=== PATIENT | female | born 1955 | race Caucasian/White ===

== ENCOUNTER 2017-12-13 02:49 | Inpatient (IN) ==
--- NOTE | 2017-12-13 03:03 | ED ---
HPI General Chief complaint: Nausea/Vomiting/Diarrhea Stated complaint: NVD/Evac Time Seen by Provider: 12/13/17 03:00 Source: patient and EMS Mode of arrival: EMS Limitations: no limitations History of Present Illness HPI narrative: The patient is a 62 year old female who presents to the [facility] emergency department with a history of reportedly not feeling well for the last 5 days. She reports that she had generalized weakness, lightheaded sensation and dizziness. She reports that today she began to have vomiting and diarrhea. She reports that she has had 3 episodes of vomiting today, one episode of diarrhea. She is unsure whether she has had any blood in her stool as she has not looked at it. The patient reports having abdominal cramping in the center of her abdomen around her umbilicus today. She denies any sick contacts, recent antibiotic use, or unusual food intake. She reports that she did have C. difficile colitis 2 years ago. The patient's only other recent medical history is complicated by discontinuing her Paxil 1 week ago. The patient reports that she lost her job in October and decided to taper herself off of the Paxil issue new that she would not be able to afford it. She reports that she has been on Paxil 30 mg for the last 20 years. She reports that over the last months she decreased the dose by half and then 1 week ago discontinued it. She denies having any dysuria, urinary frequency, or urinary urgency. The patient was brought in by ambulance services and was given normal saline of 500 mL bolus x1, Zofran 4 mg IV. The patient's blood sugar was noted prior to arrival to be 222. On review of systems otherwise, the patient denies having any known fevers, cough, congestion, neck pain, chest pain, shortness of breath , one-sided weakness, facial droop, difficulty with word finding ability, vision changes, or vertigo. Related Data Home Medications Medication Instructions Recorded Confirmed paroxetine HCl [Paxil] 15 mg PO DAILY 12/13/17 12/13/17 Allergies Allergy/AdvReac Type Severity Reaction Status Date / Time Penicillins Allergy Severe Anaphylaxis Verified 12/13/17 03:02 Review of Systems ROS: all other systems reviewed are negative (Except for that which was mentioned in the HPI.) PMFSH History History Provided By: Patient Medical History Medical History Depression (Acute) Gallbladder disease (Acute) History of Clostridium difficile infection (Acute) Surgical History Surgical History H/O knee surgery (Acute) S/P cholecystectomy (Acute) Status post surgical removal of malignant neoplasm of skin (Acute) Family History Family History Father Diabetes Mother Diabetes Other CAD (coronary artery disease) Family history of breast cancer Family history of hypertension Social History Social History Substance History: Past History Second Hand Smoke Exposure: No Smoking Status: Current every day smoker Tobacco Type: E-Cigarettes How Often Do You Have a Drink Containing Alcohol: Never Recent Out of Country Travel within the Last 8 Weeks: No Exam Const General: cooperative, no acute distress and well developed Nutritional Appearance: well nourished Orientation: alert, awake and oriented x3 HENMT Head: normocephalic and atraumatic Nose: no nasal discharge and no epistaxis Mouth: moist mucous membranes Throat: posterior oropharynx normal and uvula midline Eyes Sclera: normal sclerae Pupils: PERRL Neck Neck: no meningeal signs, trachea midline and no JVD Resp Effort & Inspection: no use of accessory muscles Auscultation: clear to auscultation bilaterally Cardio Rate: regular rate Rhythm: regular rhythm Heart Sounds: no murmurs GI Inspection: non-distended Palpation: soft, no hepatosplenomegaly, no guarding, not rigid and tender periumbilically (Tenderness to palpation along the periumbilical area.); not in the LLQ, not in the RLQ, not in the LUQ, not in the RUQ, not suprapubicly and with no rebound tenderness Back/Spine/Pelvis Back: no CVA tenderness Skin General: dry skin (warm) Neuro General: alert, awake and oriented x3 Cranial Nerves: other Speech: speech normal Motor: no movement abnormalities noted Extrem General: normal to inspection (No calf tenderness on palpation. 2+ pulses in all 4 extremities.), no clubbing, no cyanosis and no edema Psych Mood: congruent mood Affect: normal affect Judgment: judgment good Course Reevaluation(s) Reevaluation #1: The patient on reexamination after pain medication reported feeling improved. She was sleeping lying on her side. Consultations Consultation #1: The patient's case including history, pertinent physical examination findings, and laboratory studies were discussed with Dr. Cardoza. It was agreed that the patient would be admitted to the hospitalist service. Initial Documented Vital Signs Temperature 97.8 F 12/13/17 03:03 Pulse Rate 89 12/13/17 03:03 Respiratory Rate 19 12/13/17 03:03 Blood Pressure 128/60 12/13/17 03:03 Pulse Oximetry 96 12/13/17 03:03 Last Documented Vital Signs Temperature 97.9 F 12/13/17 16:00 Pulse Rate 93 H 12/13/17 16:00 Respiratory Rate 18 12/13/17 16:00 Blood Pressure 142/70 H 12/13/17 16:00 Pulse Oximetry 98 12/13/17 16:00 Medical Decision Making MDM Narrative Medical decision making narrative: During the course of the patient's emergency department visit, the patient's history, examination, and differential diagnosis were reviewed with the patient. The patient was placed on a product safety technician with oximetry and frequent blood pressure monitoring. The patient had IV access obtained and blood work sent for analysis. A diagnostic evaluation was started regarding the patient's generalized weakness, nausea, vomiting, and diarrhea. Prior to arrival the patient was given normal saline a 500 mL bolus, Zofran 4 mg IV. Stool studies were ordered. The patient was initially provided in the emergency department normal saline at 125 mL/h. The patient's diagnostic evaluation is remarkable for a white count of 11.2, platelets 331, neutrophil predominance of 86.6, hemoglobin 9, chemistry is remarkable for a lipase that is within normal limits, glucose 204, troponin I less than 0.02, creatinine is 1.[address] a [address] scan of the abdomen and pelvis done that shows evidence of a small bowel obstruction with dilated loops of small bowel secondary to a possible mass at the ileocecal valve. The patient also has a 1.5 cm indeterminate cortical based lesion involving the left kidney. The patient's results were discussed with the patient, including the plan of care. I explained that further testing and/ or monitoring is indicated based on the patient's history, examination, and/ or laboratory findings. Therefore, I recommended admission for additional evaluation. The patient expressed understanding and was agreeable with this plan. The patient was admitted to the hospital in guarded condition and sent to a bed under the care of the [facility] service. Medical Screen Exam Complete: Yes Emergency Medical Condition: Yes Differential Diagnosis Differential Diagnosis: Colitis, versus diverticulitis, versus medication withdrawal syndrome, versus appendicitis Medical Records Medical records reviewed: Yes I reviewed the patient's medical records. Lab Data Lab results reviewed: Yes I reviewed the patient's lab results. Result diagrams: 12/13/17 03:30 12/13/17 03:30 Lab Results 12/13/17 12/13/17 12/13/17 Range/Units 03:30 03:30 03:30 WBC 11.2 H (4.0-11.0) th/mm3 RBC 4.16 (4.00-5.30) mil/mm3 Hgb 9.0 L (11.6-15.3) gm/dL Hct 29.7 L (35.0-46.0) % MCV 71.4 L (80.0-100.0) fL MCH 21.6 L (27.0-34.0) pg MCHC 30.3 L (32.0-36.0) % RDW 16.7 (11.6-17.2) % Plt Count 331 (150-450) th/mm3 MPV 7.5 (7.0-11.0) fL Neut % (Auto) 86.6 H (16.0-70.0) % Lymph % (Auto) 6.8 L (9.0-44.0) % Carson % (Auto) 5.0 (0.0-8.0) % Eos % (Auto) 1.0 (0.0-4.0) % Baso % (Auto) 0.6 (0.0-2.0) % Neut # (Auto) 9.7 H (1.8-7.7) th/mm3 Lymph # (Auto) 0.8 L (1.0-4.8) th/mm3 Carson # (Auto) 0.6 (0.0-0.9) th/mm3 Eos # (Auto) 0.1 (0.0-0.4) th/mm3 Baso # (Auto) 0.1 (0.0-0.2) th/mm3 WBC Differential . Differential Comment Auto diff final ESR 59 H (0-30) mm/hr Sodium 140 (136-145) meq/L Potassium 3.9 (3.5-5.1) meq/L Chloride 107 (98-107) meq/L Carbon Dioxide 24.6 (21.0-32.0) meq/L Anion Gap 8 (5-15) meq/L BUN 15 (7-18) mg/dL Creatinine 1.24 H (0.50-1.00) mg/dL Estimated GFR 44 L (>89) mL/min Random Glucose 204 H (74-106) mg/dL Hemoglobin A1c (4.3-6.0) % Calcium 9.5 (8.5-10.1) mg/dL Total Bilirubin 0.4 (0.2-1.0) mg/dL AST 16 (15-37) U/L ALT 14 (10-53) U/L Alkaline Phosphatase 69 (45-117) U/L Total Creatine Kinase 42 (26-192) U/L Troponin I Less than 0.02 L (0.02-0.05) ng/mL B-Natriuretic Peptide (0-100) pg/mL Total Protein 7.2 (6.4-8.2) g/dL Albumin 3.4 (3.4-5.0) g/dL Triglycerides (42-150) mg/dL Cholesterol (120-200) mg/dL LDL Cholesterol, Calc (0-99) mg/dL HDL Cholesterol (40.0-60.0) mg/dL Cholesterol/HDL Ratio Ratio Lipase 86 (73-393) U/L Vitamin B12 (193-986) pg/mL TSH 2.650 (0.358-3.740) uIU/mL Urine Color (Yellw/Straw) Urine Clarity (Clear) Urine pH (5.0-8.5) Ur Specific Divide (1.002-1.035) Urine Protein (Neg-Trace) mg/dL Urine Glucose (UA) (Negative) mg/dL Urine Ketones (Negative) mg/dL Urine Occult Blood (Negative) Urine Nitrate (Negative) Urine Bilirubin (Negative) Urine Urobilinogen (Less than 2) mg/dL Ur Leukocyte Esterase (Negative) Urine RBC (0-3) /hpf Urine WBC (0-5) /hpf Ur Squamous Epith Cells (0-5) /hpf Urine Bacteria (None) /hpf Urine Mucus (Occasional) /lpf Micro UA Comment Urine Culture Comments 12/13/17 12/13/17 12/13/17 Range/Units 03:30 03:30 03:30 WBC (4.0-11.0) th/mm3 RBC (4.00-5.30) mil/mm3 Hgb (11.6-15.3) gm/dL Hct (35.0-46.0) % MCV (80.0-100.0) fL MCH (27.0-34.0) pg MCHC (32.0-36.0) % RDW (11.6-17.2) % Plt Count (150-450) th/mm3 MPV (7.0-11.0) fL Neut % (Auto) (16.0-70.0) % Lymph % (Auto) (9.0-44.0) % Carson % (Auto) (0.0-8.0) % Eos % (Auto) (0.0-4.0) % Baso % (Auto) (0.0-2.0) % Neut # (Auto) (1.8-7.7) th/mm3 Lymph # (Auto) (1.0-4.8) th/mm3 Carson # (Auto) (0.0-0.9) th/mm3 Eos # (Auto) (0.0-0.4) th/mm3 Baso # (Auto) (0.0-0.2) th/mm3 WBC Differential Differential Comment ESR (0-30) mm/hr Sodium (136-145) meq/L Potassium (3.5-5.1) meq/L Chloride (98-107) meq/L Carbon Dioxide (21.0-32.0) meq/L Anion Gap (5-15) meq/L BUN (7-18) mg/dL Creatinine (0.50-1.00) mg/dL Estimated GFR (>89) mL/min Random Glucose (74-106) mg/dL Hemoglobin A1c 5.9 (4.3-6.0) % Calcium (8.5-10.1) mg/dL Total Bilirubin (0.2-1.0) mg/dL AST (15-37) U/L ALT (10-53) U/L Alkaline Phosphatase (45-117) U/L Total Creatine Kinase (26-192) U/L Troponin I (0.02-0.05) ng/mL B-Natriuretic Peptide 19 (0-100) pg/mL Total Protein (6.4-8.2) g/dL Albumin (3.4-5.0) g/dL Triglycerides (42-150) mg/dL Cholesterol (120-200) mg/dL LDL Cholesterol, Calc (0-99) mg/dL HDL Cholesterol (40.0-60.0) mg/dL Cholesterol/HDL Ratio Ratio Lipase (73-393) U/L Vitamin B12 (193-986) pg/mL TSH 2.620 (0.358-3.740) uIU/mL Urine Color (Yellw/Straw) Urine Clarity (Clear) Urine pH (5.0-8.5) Ur Specific Divide (1.002-1.035) Urine Protein (Neg-Trace) mg/dL Urine Glucose (UA) (Negative) mg/dL Urine Ketones (Negative) mg/dL Urine Occult Blood (Negative) Urine Nitrate (Negative) Urine Bilirubin (Negative) Urine Urobilinogen (Less than 2) mg/dL Ur Leukocyte Esterase (Negative) Urine RBC (0-3) /hpf Urine WBC (0-5) /hpf Ur Squamous Epith Cells (0-5) /hpf Urine Bacteria (None) /hpf Urine Mucus (Occasional) /lpf Micro UA Comment Urine Culture Comments 12/13/17 12/13/17 Range/Units 03:30 13:08 WBC (4.0-11.0) th/mm3 RBC (4.00-5.30) mil/mm3 Hgb (11.6-15.3) gm/dL Hct (35.0-46.0) % MCV (80.0-100.0) fL MCH (27.0-34.0) pg MCHC (32.0-36.0) % RDW (11.6-17.2) % Plt Count (150-450) th/mm3 MPV (7.0-11.0) fL Neut % (Auto) (16.0-70.0) % Lymph % (Auto) (9.0-44.0) % Carson % (Auto) (0.0-8.0) % Eos % (Auto) (0.0-4.0) % Baso % (Auto) (0.0-2.0) % Neut # (Auto) (1.8-7.7) th/mm3 Lymph # (Auto) (1.0-4.8) th/mm3 Carson # (Auto) (0.0-0.9) th/mm3 Eos # (Auto) (0.0-0.4) th/mm3 Baso # (Auto) (0.0-0.2) th/mm3 WBC Differential Differential Comment ESR (0-30) mm/hr Sodium (136-145) meq/L Potassium (3.5-5.1) meq/L Chloride (98-107) meq/L Carbon Dioxide (21.0-32.0) meq/L Anion Gap (5-15) meq/L BUN (7-18) mg/dL Creatinine (0.50-1.00) mg/dL Estimated GFR (>89) mL/min Random Glucose (74-106) mg/dL Hemoglobin A1c (4.3-6.0) % Calcium (8.5-10.1) mg/dL Total Bilirubin (0.2-1.0) mg/dL AST (15-37) U/L ALT (10-53) U/L Alkaline Phosphatase (45-117) U/L Total Creatine Kinase (26-192) U/L Troponin I (0.02-0.05) ng/mL B-Natriuretic Peptide (0-100) pg/mL Total Protein (6.4-8.2) g/dL Albumin (3.4-5.0) g/dL Triglycerides 154 H (42-150) mg/dL Cholesterol 153 (120-200) mg/dL LDL Cholesterol, Calc 85 (0-99) mg/dL HDL Cholesterol 37.0 L (40.0-60.0) mg/dL Cholesterol/HDL Ratio 4.13 Ratio Lipase (73-393) U/L Vitamin B12 263 (193-986) pg/mL TSH (0.358-3.740) uIU/mL Urine Color Yellow (Yellw/Straw) Urine Clarity Hazy H (Clear) Urine pH 5.0 (5.0-8.5) Ur Specific Divide Greater than 1.060 H (1.002-1.035) Urine Protein 30 H (Neg-Trace) mg/dL Urine Glucose (UA) Negative (Negative) mg/dL Urine Ketones Negative (Negative) mg/dL Urine Occult Blood Negative (Negative) Urine Nitrate Negative (Negative) Urine Bilirubin Negative (Negative) Urine Urobilinogen 2.0 H (Less than 2) mg/dL Ur Leukocyte Esterase Moderate H (Negative) Urine RBC 9 H (0-3) /hpf Urine WBC 6 H (0-5) /hpf Ur Squamous Epith Cells 13 (0-5) /hpf Urine Bacteria Moderate H (None) /hpf Urine Mucus Moderate H (Occasional) /lpf Micro UA Comment Culture indicated Urine Culture Comments Culture indicated Imaging Data Radiologist's impression: Chest X-Ray 12/13/17 03:52 CONCLUSION: 1.5 cm nodular density associated with the right third costochondral junction. This could relate to calcification at the costochondral junction. I cannot exclude a pulmonary nodule. A CT of the thorax is suggested as an outpatient for follow-up. No acute intrathoracic abnormality otherwise. Abdomen/Pelvis CT 12/13/17 03:54 CONCLUSION: 1. Small bowel obstruction. Obstruction is felt to be secondary to possible mass at the ileocecal valve. The appendix is unremarkable. 2. 1.5 cm indeterminate cortical based lesion involving the left kidney. I cannot exclude a solid mass. Consideration could be made to ultrasound to further assess. 3. Prior cholecystectomy. Discharge Plan Discharge Disposition Patient Disposition: 30 Still Patient Discharge Details Diagnosis: Small bowel obstruction Physicians Team ED Provider: Tegan Patel Primary Care Provider: UNKNOWN, Attending Provider: Abdelrahman Gonsalves Other Providers: Geoffrey Nolan ; Forrest Quinonez Discharge Interventions Interventions: ED Discharge Assessment Last Done: 12/13/17 12:25 Vital Signs Last Done: 12/13/17 12:25 Status ED Status: Left Department Discharge Information Discharge Date/Time: 12/13/17 12:30
[2017-12-13] MEDS ORDERED: Sod Chloride 0.9% Inj 1,000 ML IV.CONT SCH (04:00)
--- NOTE | 2017-12-13 04:14 | XR ---
EXAM DATE: 12/13/2017 4:09 AM EDT AGE/SEX: 62 years / Female INDICATIONS: Short of breath, nausea, vomiting. CLINICAL DATA: This is the patient's initial encounter. Patient reports that signs and symptoms have been present for 1 day and indicates a pain score of 0/10. MEDICAL/SURGICAL HISTORY: None. None. COMPARISON: No prior exams available for comparison. FINDINGS: A single AP view of the chest demonstrates a 1.5 cm nodular like density projecting over the costocho ndral junction of the right third rib. Remaining lungs are clear. No infiltrates or effusions. Heart is normal in size. Bony structures are unremarkable. CONCLUSION: 1.5 cm nodular density associated with the right third costochondral junction. This could relate to c alcification at the costochondral junction. I cannot exclude a pulmonary nodule. A CT of the thorax i s suggested as an outpatient for follow-up. No acute intrathoracic abnormality otherwise. Electronically signed by: Gonzales Miller MD 12/13/2017 4:12 AM EDT
[2017-12-13 04:23] LABS: Baso # (Auto) 0.1 th/mm3 (0.0-0.2); Baso % (Auto) 0.6 % (0.0-2.0); Eos # (Auto) 0.1 th/mm3 (0.0-0.4); Hematocrit 29.7 % (35.0-46.0); Lymph # (Auto) 0.8 th/mm3 (1.0-4.8); Lymph % (Auto) 6.8 % (9.0-44.0); Mean Corpuscular Hemoglobin 21.6 pg (27.0-34.0); Mean Corpuscular Volume 71.4 fL (80.0-100.0); Mean Platelet Volume 7.5 fL (7.0-11.0); Mono # (Auto) 0.6 th/mm3 (0.0-0.9); Neut # (Auto) 9.7 th/mm3 (1.8-7.7); Neut % (Auto) 86.6 % (16.0-70.0); Platelet Count 331 th/mm3 (150-450); Red Blood Count 4.16 mil/mm3 (4.00-5.30); Red Cell Distribution Width 16.7 % (11.6-17.2); White Blood Count 11.2 th/mm3 (4.0-11.0)
[2017-12-13 04:26] LABS: Mean Corpuscular HGB Conc 30.3 % (32.0-36.0)
[2017-12-13 04:38] LABS: Alanine Aminotransferase 14 U/L (10-53); Albumin 3.4 g/dL (3.4-5.0); Anion Gap 8 meq/L (5-15); Aspartate Aminotransferase 16 U/L (15-37); Blood Urea Nitrogen 15 mg/dL (7-18); Calcium 9.5 mg/dL (8.5-10.1); Carbon Dioxide 24.6 meq/L (21.0-32.0); Chloride 107 meq/L (98-107); Glomerular Filtration Rate 44 mL/min (>89); Glucose,Random 204 mg/dL (74-106); Lipase 86 U/L (73-393); Potassium 3.9 meq/L (3.5-5.1); Sodium 140 meq/L (136-145)
[2017-12-13 04:47] LABS: Alkaline Phosphatase 69 U/L (45-117); Total Protein 7.2 g/dL (6.4-8.2)
[2017-12-13 04:48] LABS: Creatine Kinase 42 U/L (26-192)
[2017-12-13] MEDS ORDERED: Sodium Chlor 0.9% Inj 500 ML IV.SIG ONE (04:56)
--- NOTE | 2017-12-13 05:38 | CT ---
EXAM DATE: 12/13/2017 5:19 AM EDT AGE/SEX: 62 years / Female INDICATIONS: Umbilical pain with nausea and vomiting. CLINICAL DATA: This is the patient's initial encounter. Patient reports that signs and symptoms have been present for 1 day and indicates a pain score of 7/10. MEDICAL/SURGICAL HISTORY: None. Cholecystectomy. ORAL CONTRAST: No oral contrast ingested. RADIATION DOSE: 16.72 CTDI (mGy) COMPARISON: No prior exams available for comparison. TECHNIQUE: Multiple contiguous axial images were obtained through the abdomen and pelvis following b olus infusion of 95 ml Omnipaque 350 (iohexol) nonionic water-soluble contrast as a single exam dos e. No oral contrast ingested. Using automated exposure control and adjustment of the mA and/or kV ac cording to patient size, radiation dose was kept as low as reasonably achievable to obtain optimal di agnostic quality images. DICOM format image data is available electronically for review and comparis on. FINDINGS: Lower Lungs: Small hiatal hernia. The visualized lower lungs are clear. Liver: The liver has a homogeneous density. 1.5 cm cyst involving the central portions of the liver. There is no dilation of the biliary tree. Prior cholecystectomy. Spleen: Homogeneous density without enlargement. Pancreas: Unremarkable without mass or calcification. Kidneys: Normal in size and shape. There is a 1.5 cm cortical based lesion involving the lateral mid pole the left kidney. Hounsfield units are 28.. Adrenal Glands: Unremarkable. Aorta: The aorta and proximal iliac vessels are grossly unremarkable without aneurysmal dilation. Bowel/Mesentery: Dilatation of the small bowel throughout its entirety is noted. It is fluid-filled. No inflammatory change. There is an abnormal appearance to the cecum at the ileocecal valve. This is concerning for a mass. The appendix is normal by CT criteria. No free air or free fluid. Abdominal Wall: Intact. Retroperitoneum: No evidence of adenopathy in the retrocrural, para-aortic, or deep pelvic regions. Bladder: Contours are smooth. Reproductive Organs: No abnormal masses or calcifications seen. Inguinal: The inguinal region is unremarkable without evidence of adenopathy. Bony Structures: Unremarkable. CONCLUSION: 1. Small bowel obstruction. Obstruction is felt to be secondary to possible mass at the ileocecal va lve. The appendix is unremarkable. 2. 1.5 cm indeterminate cortical based lesion involving the left kidney. I cannot exclude a solid ma ss. Consideration could be made to ultrasound to further assess. 3. Prior cholecystectomy. Electronically signed by: Gonzales Miller MD 12/13/2017 5:37 AM EDT
[2017-12-13] MEDS ORDERED: Morphine Inj 4 MG/ML Vial IV.PUSH PRN (06:10)
[2017-12-13] MEDS: Sod Chloride 0.9% Inj 1,000 ML IV.CONT SCH ×3 (07:32→23:46)
--- NOTE | 2017-12-13 08:42 | P.HP ---
History of Present Illness Primary Care Physician: UNKNOWN Chief Complaint: nausea , vomit and diarrhea. History of Present Illness: This is a pleasant 62 y/o Female who came to ER with complaint of nausea, vomit and Diarrhea, generalized weakness, lightheaded sensation and dizziness. had C. difficile colitis 2 years ago. has Depression, Tobacco dependence, was indicated for admission by ER physician , observation The patient is been having symptomatology for the last two years she went to her PCP during the last two years with pain on the Right lower quadrant. Inpatient Certification: I certify that the inpatient services were ordered in accordance with Medicare regulations governing the order. This includes certification that hospital inpatient services are reasonable and necessary and in the case of services not specified as inpatient-only under 42 CFR 419.22(n), that they are appropriately provided as inpatient services in accordance to with the 2-midnight benchmark under 43 CFR 412.3(e) Estimated Total Length of Stay (Days): 2 Plans for Post Hospital Care: Not yet determined Review of Systems All other systems reviewed negative except as stated in [facility]PI PMFSH - History History Provided By: Patient - Medical History Medical History: Medical History (Last Reviewed 12/13/17 @ 03:57 by Tegan Patel MD) Depression Gallbladder disease History of Clostridium difficile infection - Surgical History Surgical History: Surgical History (Last Updated 12/13/17 @ 03:58 by Tegan Patel MD) H/O knee surgery S/P cholecystectomy Status post surgical removal of malignant neoplasm of skin - Family History Family History: Family History (Last Updated 12/13/17 @ 09:26 by Abdelrahman Gonsalves MD) Father Diabetes Mother Diabetes Other CAD (coronary artery disease) Family history of breast cancer Family history of hypertension - Tobacco History Second Hand Smoke Exposure: No Tobacco Use In Past 30 Days: Yes Smoking Status: Current every day smoker Tobacco Type: E-Cigarettes - Alcohol History How Often Do You Have a Drink Containing Alcohol: Never - Substance Use History Substance History: Past History - Travel History Recent Travel Out of the Country Within the Last 8 Weeks: No - Immunization History Tetanus Immunization: Unsure Medications and Allergies Active Medications: Active Medications Sodium Chloride (Ns Inj) 1,000 mls @ 125 mls/hr IV.CONT .Q8H CAT Stop: 12/13/17 11:59 Last Infusion: 12/13/17 07:10 Dose: 0 mls/hr Sodium Chloride (Ns Inj) 1,000 mls @ 125 mls/hr IV.CONT .Q8H [facility] Last Admin: 12/13/17 07:32 Dose: 125 mls/hr Morphine Sulfate (Morphine Inj) 2 mg IV.PUSH Q4H PRN PRN Reason: pain 6-10 Ondansetron HCl (Zofran Inj) 4 mg IV.PUSH Q6H PRN PRN Reason: Nausea And Vomiting Sodium Chloride (Ns Flush) 2 ml IV.FLUSH PRN PRN PRN Reason: FLUSH AFTER USING IV ACCESS Allergies Allergy/AdvReac Type Severity Reaction Status Date / Time Penicillins Allergy Severe Anaphylaxis Verified 12/13/17 03:02 Home Medications Medication Instructions Recorded Confirmed Type paroxetine HCl [Paxil] 15 mg PO DAILY 12/13/17 12/13/17 History Exam Vital signs: Vital Signs 12/13/17 03:03 12/13/17 03:14 12/13/17 06:08 Temperature 97.8 F Pulse Rate 89 90 78 Respiratory Rate 19 16 18 Blood Pressure 128/60 128/60 133/64 Pulse Oximetry 96 95 12/13/17 07:00 12/13/17 07:14 Temperature 97.8 F Pulse Rate 83 Respiratory Rate 18 Blood Pressure 141/77 H Pulse Oximetry 99 100 Intake & Output 12/12/17 12/13/17 12/13/17 18:59 06:59 18:59 Intake Total 750 / 750 Balance 750 / 750 Weight 95.254 kg Intake: IV 750 / 750 NS Inj 1,000 ML @ 125 mls/hr IV 250 / 250 .CONT .Q8H [facility] Rx#:[id number] NS Inj 500 ML @ Wide Open IV. 500 / 500 SIG BOLUS ONE Rx#:[id number] Narrative: GENERAL: This is a well-nourished, well-developed patient, in no apparent distress. CARDIOVASCULAR: Regular rate and rhythm without murmurs, gallops, or rubs. RESPIRATORY: Clear to auscultation. Breath sounds equal bilaterally. No wheezes , rales, or rhonchi. GASTROINTESTINAL: Soft, mild tenderness on right lower quadrant. MUSCULOSKELETAL: Extremities without clubbing, cyanosis, or edema. NEURO: Alert & Oriented x4 to person, place, time, situation. Moves all ext x4 Results - Labs CBC & Chem 7: 12/13/17 03:30 12/13/17 03:30 Labs: Laboratory Results - last 24 hr 12/13/17 12/13/17 12/13/17 03:30 03:30 03:30 WBC 11.2 H RBC 4.16 Hgb 9.0 L Hct 29.7 L MCV 71.4 L MCH 21.6 L MCHC 30.3 L RDW 16.7 Plt Count 331 MPV 7.5 Neut % (Auto) 86.6 H Lymph % (Auto) 6.8 L [place] % (Auto) 5.0 Eos % (Auto) 1.0 Baso % (Auto) 0.6 Neut # (Auto) 9.7 H Lymph # (Auto) 0.8 L [place] # (Auto) 0.6 Eos # (Auto) 0.1 Baso # (Auto) 0.1 WBC Differential . Differential Comment Auto diff final ESR 59 H Sodium 140 Potassium 3.9 Chloride 107 Carbon Dioxide 24.6 Anion Gap 8 BUN 15 Creatinine 1.24 H Estimated GFR 44 L Random Glucose 204 H Calcium 9.5 Total Bilirubin 0.4 AST 16 ALT 14 Alkaline Phosphatase 69 Total Creatine Kinase 42 Troponin I Less than 0.02 L B-Natriuretic Peptide Total Protein 7.2 Albumin 3.4 Lipase 86 TSH 2.650 12/13/17 03:30 WBC RBC Hgb Hct MCV MCH MCHC RDW Plt Count MPV Neut % (Auto) Lymph % (Auto) [place] % (Auto) Eos % (Auto) Baso % (Auto) Neut # (Auto) Lymph # (Auto) [place] # (Auto) Eos # (Auto) Baso # (Auto) WBC Differential Differential Comment ESR Sodium Potassium Chloride Carbon Dioxide Anion Gap BUN Creatinine Estimated GFR Random Glucose Calcium Total Bilirubin AST ALT Alkaline Phosphatase Total Creatine Kinase Troponin I B-Natriuretic Peptide 19 Total Protein Albumin Lipase TSH - Imaging Impressions Chest X-Ray 12/13/17 03:52 CONCLUSION: 1.5 cm nodular density associated with the right third costochondral junction. This could relate to calcification at the costochondral junction. I cannot exclude a pulmonary nodule. A CT of the thorax is suggested as an outpatient for follow-up. No acute intrathoracic abnormality otherwise. Abdomen/Pelvis CT 12/13/17 03:54 CONCLUSION: 1. Small bowel obstruction. Obstruction is felt to be secondary to possible mass at the ileocecal valve. The appendix is unremarkable. 2. 1.5 cm indeterminate cortical based lesion involving the left kidney. I cannot exclude a solid mass. Consideration could be made to ultrasound to further assess. 3. Prior cholecystectomy. Caprini VTE Risk Assessment Caprini VTE Risk Assessment: Moderate/High Risk (score >= 2) Caprini Risk Assessment Model: Point Value = 1 Point Value = 2 Point Value = 3 Point Value = 5 Age 41-60 Minor surgery BMI > 25 kg/m2 Swollen legs Varicose veins or History of unexplained or recurrent spontaneous Oral contraceptives or hormone replacement Sepsis (< 1 month) Serious lung disease, including pneumonia (< 1 month) Abnormal pulmonary function Acute myocardial infarction Congestive heart failure (< 1 month) History of inflammatory bowel disease Medical patient at bed rest Age 61-74 Arthroscopic surgery Major open surgery (> 45 min) Laparoscopic surgery (> 45 min) Malignancy Confined to bed (> 72 hours) Immobilizing plaster cast Central venous access Age >= 75 History of VTE Family history of VTE Factor V Leiden Prothrombin [id number] Lupus anticoagulant Anticardiolipin antibodies Elevated serum homocysteine Heparin-induced thrombocytopenia Other congenital or acquired thrombophilia Stroke (< 1 month) Elective arthroplasty Hip, pelvis, or leg fracture Acute spinal cord injury (< 1 month) Prophylaxis Regimen: Total Risk Factor Score Risk Level Prophylaxis Regimen 0-1 Low Early ambulation 2 Moderate Order ONE of the following: *Sequential Compression Device (SCD) *Heparin 5000 units SQ BID 3-4 Higher Order ONE of the following medications: *Heparin 5000 units SQ TID *Enoxaparin/Lovenox 40 mg SQ daily (WT < 150 kg, CrCl > 30 mL/min) *Enoxaparin/Lovenox 30 mg SQ daily (WT < 150 kg, CrCl > 10-29 mL/min) *Enoxaparin/Lovenox 30 mg SQ BID (WT < 150 kg, CrCl > 30 mL/min) AND/OR *Sequential Compression Device (SCD) 5 or more Highest Order ONE of the following medications: *Heparin 5000 units SQ TID (Preferred with Epidurals) *Enoxaparin/Lovenox 40 mg SQ daily (WT < 150 kg, CrCl > 30 mL/min) *Enoxaparin/Lovenox 30 mg SQ daily (WT < 150 kg, CrCl > 10-29 mL/min) *Enoxaparin/Lovenox 30 mg SQ BID (WT < 150 kg, CrCl > 30 mL/min) AND *Sequential Compression Device (SCD) Assessment and Plan - Plan 1. Small Bowel Obstruction, had CT of Abdomen and Pelvis, with result of SBO, secondary to probable mass on Ileocecal valve, appendix unremarkable, 1.5 cm indeterminate cortical based lesion involving the left kidney cannot exclude a solid mass, prior cholecystectomy asked for General library media specialist. 2. Depression continue Home medicines once able to take by mouth. 3. Tobacco dependence strongly recommended stop smoking. DVT prophylaxis with SCDs. awaiting probable surgical procedure. Code Status: Full code. Discussed Condition With: Patient Discharge Planning: Once cleared by General Surgery.
[2017-12-13 10:18] LABS: Chol/HDL Ratio 4.13 Ratio
[2017-12-13 14:12] LABS: Bacteria,Urine Moderate /hpf; Bilirubin,Urine Negative (Negative); Clarity,Urine Hazy (Clear); Color,Urine Yellow (Yellw/Straw); Glucose,Urine (UA) Negative (Negative); Leukocyte Esterase,Urine Moderate (Negative); Mucus,Urine Moderate /lpf (Occasional); Nitrite,Urine Negative (Negative); Squamous Epithelial Cell,Urine 13 /hpf (0-5)
[2017-12-13 15:47] LABS: Hemoglobin A1c 5.9 % (4.3-6.0)
--- NOTE | 2017-12-13 16:37 | P.CONGS ---
[facility] Gen Surgery Consult Note Consult date: 12/13/17 Narrative: 62 yo F presents with "stomachache", vomiting, diarrhea, severe dizziness. She stopped her Paxil about 5 days prior to admission for financial reasons. She reports that she has had right lower quadrant pain for probably a couple of years and her reports that she has had a decreased appetite for a year or so. The patient states that she has about 1 bowel movement a week. She denies melena or hematochezia. She has never had a colonoscopy. On CT scan of the abdomen and pelvis she was noted to have a small bowel obstruction possibly secondary to a cecal mass. Review of Systems All other systems reviewed negative except as stated in [facility] PMFSH - History History Provided By: Patient - Medical History Medical History: Medical History (Last Reviewed 12/13/17 @ 03:57 by Tegan Patel MD) Depression Gallbladder disease History of Clostridium difficile infection - Surgical History Surgical History: Surgical History (Last Updated 12/13/17 @ 03:58 by Tegan Patel MD) H/O knee surgery S/P cholecystectomy Status post surgical removal of malignant neoplasm of skin - Family History Family History: Family History (Last Updated 12/13/17 @ 09:26 by Abdelrahman Gonsalves MD) Father Diabetes Mother Diabetes Other CAD (coronary artery disease) Family history of breast cancer Family history of hypertension - Tobacco History Second Hand Smoke Exposure: No Tobacco Use In Past 30 Days: Yes Smoking Status: Current every day smoker Tobacco Type: E-Cigarettes - Alcohol History How Often Do You Have a Drink Containing Alcohol: Never - Substance Use History Substance History: Past History - Travel History Recent Travel Out of the Country Within the Last 8 Weeks: No - Immunization History Tetanus Immunization: Unsure Medications and Allergies Active Medications: Active Medications Sodium Chloride (Ns Inj) 1,000 mls @ 125 mls/hr IV.CONT .Q8H [facility] Last Admin: 12/13/17 07:32 Dose: 125 mls/hr Morphine Sulfate (Morphine Inj) 2 mg IV.PUSH Q4H PRN PRN Reason: pain 6-10 Ondansetron HCl (Zofran Inj) 4 mg IV.PUSH Q6H PRN PRN Reason: Nausea And Vomiting Last Admin: 12/13/17 09:16 Dose: 4 mg Sodium Chloride (Ns Flush) 2 ml IV.FLUSH PRN PRN PRN Reason: FLUSH AFTER USING IV ACCESS Allergies Allergy/AdvReac Type Severity Reaction Status Date / Time Penicillins Allergy Severe Anaphylaxis Verified 12/13/17 03:02 Home Medications Medication Instructions Recorded Confirmed Type paroxetine HCl [Paxil] 15 mg PO DAILY 12/13/17 12/13/17 History Exam Vital signs: Vital Signs 12/13/17 03:03 12/13/17 03:14 12/13/17 06:08 Temperature 97.8 F Pulse Rate 89 90 78 Respiratory Rate 19 16 18 Blood Pressure 128/60 128/60 133/64 Pulse Oximetry 96 95 12/13/17 07:00 12/13/17 07:14 12/13/17 08:41 Temperature 97.8 F 97.7 F Pulse Rate 83 79 Respiratory Rate 18 16 Blood Pressure 141/77 H 138/77 Pulse Oximetry 99 100 99 12/13/17 11:15 12/13/17 12:25 12/13/17 13:14 Temperature 97.8 F 97.7 F 97.8 F Pulse Rate 83 81 102 H Respiratory Rate 15 16 18 Blood Pressure 144/65 H 134/77 132/61 Pulse Oximetry 99 98 97 Intake & Output 12/12/17 12/13/17 12/13/17 18:59 06:59 18:59 Intake Total 750 / 750 Balance 750 / 750 Weight 95.254 kg Intake: IV 750 / 750 NS Inj 1,000 ML @ 125 mls/hr IV 250 / 250 .CONT .Q8H [facility] Rx#:[id number] NS Inj 500 ML @ Wide Open IV. 500 / 500 SIG BOLUS ONE Rx#:[id number] Narrative: GENERAL: Awake and alert. No acute distress. Cooperative. HEAD: Normocephalic. Atraumatic. EYES: Pupils equal round and reactive to light bilaterally. No scleral icterus. ENT: Moist oral mucosa. NECK: Trachea midline. CHEST: Nonlabored breathing. No respiratory distress. CARDIOVASCULAR: Regular rate and rhythm. ABDOMEN: Moderate distention. Not tympanitic. Moderate right lower quadrant tenderness to palpation without rebound or guarding. Right subcostal scar. EXTREMITIES: No cyanosis or edema. SKIN: Warm, dry, nonjaundiced. Results - Labs 12/13/17 03:30 12/13/17 03:30 Abnormal lab results 12/13/17 12/13/17 12/13/17 Range/Units 03:30 03:30 03:30 WBC 11.2 H (4.0-11.0) th/mm3 Hgb 9.0 L (11.6-15.3) gm/dL Hct 29.7 L (35.0-46.0) % MCV 71.4 L (80.0-100.0) fL MCH 21.6 L (27.0-34.0) pg MCHC 30.3 L (32.0-36.0) % Neut % (Auto) 86.6 H (16.0-70.0) % Lymph % (Auto) 6.8 L (9.0-44.0) % Neut # (Auto) 9.7 H (1.8-7.7) th/mm3 Lymph # (Auto) 0.8 L (1.0-4.8) th/mm3 ESR 59 H (0-30) mm/hr Creatinine 1.24 H (0.50-1.00) mg/dL Estimated GFR 44 L (>89) mL/min Random Glucose 204 H (74-106) mg/dL Troponin I Less than 0.02 L (0.02-0.05) ng/mL Triglycerides (42-150) mg/dL HDL Cholesterol (40.0-60.0) mg/dL Urine Clarity (Clear) Ur Specific [place] (1.002-1.035) Urine Protein (Neg-Trace) mg/dL Urine Urobilinogen (Less than 2) mg/dL Ur Leukocyte Esterase (Negative) Urine RBC (0-3) /hpf Urine WBC (0-5) /hpf Urine Bacteria (None) /hpf Urine Mucus (Occasional) /lpf 12/13/17 12/13/17 Range/Units 03:30 13:08 WBC (4.0-11.0) th/mm3 Hgb (11.6-15.3) gm/dL Hct (35.0-46.0) % MCV (80.0-100.0) fL MCH (27.0-34.0) pg MCHC (32.0-36.0) % Neut % (Auto) (16.0-70.0) % Lymph % (Auto) (9.0-44.0) % Neut # (Auto) (1.8-7.7) th/mm3 Lymph # (Auto) (1.0-4.8) th/mm3 ESR (0-30) mm/hr Creatinine (0.50-1.00) mg/dL Estimated GFR (>89) mL/min Random Glucose (74-106) mg/dL Troponin I (0.02-0.05) ng/mL Triglycerides 154 H (42-150) mg/dL HDL Cholesterol 37.0 L (40.0-60.0) mg/dL Urine Clarity Hazy H (Clear) Ur Specific [place] Greater than 1.060 H (1.002-1.035) Urine Protein 30 H (Neg-Trace) mg/dL Urine Urobilinogen 2.0 H (Less than 2) mg/dL Ur Leukocyte Esterase Moderate H (Negative) Urine RBC 9 H (0-3) /hpf Urine WBC 6 H (0-5) /hpf Urine Bacteria Moderate H (None) /hpf Urine Mucus Moderate H (Occasional) /lpf Diabetes panel 12/13/17 12/13/17 Range/Units 03:30 03:30 Sodium 140 (136-145) meq/L Potassium 3.9 (3.5-5.1) meq/L Chloride 107 (98-107) meq/L Carbon Dioxide 24.6 (21.0-32.0) meq/L BUN 15 (7-18) mg/dL Creatinine 1.24 H (0.50-1.00) mg/dL Calcium 9.5 (8.5-10.1) mg/dL AST 16 (15-37) U/L ALT 14 (10-53) U/L Alkaline Phosphatase 69 (45-117) U/L Total Protein 7.2 (6.4-8.2) g/dL Albumin 3.4 (3.4-5.0) g/dL Triglycerides 154 H (42-150) mg/dL HDL Cholesterol 37.0 L (40.0-60.0) mg/dL Thyroid panel 12/13/17 12/13/17 Range/Units 03:30 03:30 TSH 2.650 2.620 (0.358-3.740) uIU/mL Calcium panel 12/13/17 Range/Units 03:30 Calcium 9.5 (8.5-10.1) mg/dL Albumin 3.4 (3.4-5.0) g/dL Pituitary panel 12/13/17 12/13/17 Range/Units 03:30 03:30 Sodium 140 (136-145) meq/L Potassium 3.9 (3.5-5.1) meq/L Chloride 107 (98-107) meq/L Carbon Dioxide 24.6 (21.0-32.0) meq/L BUN 15 (7-18) mg/dL Creatinine 1.24 H (0.50-1.00) mg/dL Calcium 9.5 (8.5-10.1) mg/dL TSH 2.650 2.620 (0.358-3.740) uIU/mL Adrenal panel 12/13/17 Range/Units 03:30 Sodium 140 (136-145) meq/L Potassium 3.9 (3.5-5.1) meq/L Chloride 107 (98-107) meq/L Carbon Dioxide 24.6 (21.0-32.0) meq/L BUN 15 (7-18) mg/dL Creatinine 1.24 H (0.50-1.00) mg/dL Calcium 9.5 (8.5-10.1) mg/dL Total Bilirubin 0.4 (0.2-1.0) mg/dL AST 16 (15-37) U/L ALT 14 (10-53) U/L Alkaline Phosphatase 69 (45-117) U/L Total Protein 7.2 (6.4-8.2) g/dL Albumin 3.4 (3.4-5.0) g/dL All other labs normal. - Imaging CT scan - abdomen: report reviewed, image reviewed CT scan - pelvis: report reviewed, image reviewed Assessment and Plan - Assessment (1) Small bowel obstruction Code(s): K56.609 - Unspecified intestinal obstruction, unspecified as to partial versus complete obstruction Status: Acute - Plan Small bowel obstruction apparently secondary to cecal mass. Also anemia possibly due to the same. I have consulted gastroenterology to consider colonoscopy. If near obstructing mass would need resection but diagnosis if not fully clear yet. I discussed this in detail with the patient and her .
[2017-12-13] MEDS ORDERED: PEG 3350/E-Lyte Soln 4000 ML Bottle PO ONE (16:58)
--- NOTE | 2017-12-13 17:28 | P.CONGI ---
History of Present Illness Consult date: 12/13/17 Consult reason: Cecum mass Chief complaint: Small Bowel Obstruction History of Present Illness: This is a 62-year-old female who came in the hospital on 12/13/2017 with symptoms of nausea vomiting diarrhea dizziness and a stomachache. According to the record she also has been having right upper quadrant pain for at least 2 years and now is noting a decreased appetite over the past year. CT scan was performed on admission and did show a small bowel obstruction which was felt to possibly be a mass at the ileocecal valve prior cholecystectomy. Gastroenterology was consulted to assist in the symptom management as well as the plan of care for patients cecal mass. Patient also has been evaluated per general surgery. Currently patient is awake alert and a fairly good historian she denies any previous history of EGD or colonoscopy in the past. Patient has no family history of colon cancer. Patient denies any melena or hematemesis and no obvious rectal bleeding. Current labs show hemoglobin at 9, WBC count 11.2, platelet count 331, GFR 44, liver enzymes and bilirubin are normal. During my exam patient did note some dyspepsia and heartburn symptoms often known with aggregating factors after eating. Over the past week patient states that her dyspepsia has worsened with her abdominal pain, nausea and vomiting. Alleviating factors is Tums but to my knowledge patient has never been on PPI. Patient also notes history of constipation with one BM a week off and on for the past few months, but in the past week patient has noted some diarrhea stools which could be related to SBO and cecum mass. <Ale Arciniega - Last Filed: 12/13/17 17:28> Review of Systems All other systems reviewed negative except as stated in HPI <Ale Arciniega - Last Filed: 12/13/17 17:28> PMFSH - History History Provided By: Patient - Medical History Medical History: Medical History (Last Reviewed 12/13/17 @ 03:57 by Tegan Patel MD) Depression Gallbladder disease History of Clostridium difficile infection - Surgical History Surgical History: Surgical History (Last Updated 12/13/17 @ 03:58 by Tegan Patel MD) H/O knee surgery S/P cholecystectomy Status post surgical removal of malignant neoplasm of skin - Family History Family History: Family History (Last Updated 12/13/17 @ 09:26 by Abdelrahman Gonsalves MD) Father Diabetes Mother Diabetes Other CAD (coronary artery disease) Family history of breast cancer Family history of hypertension - Tobacco History Second Hand Smoke Exposure: No Tobacco Use In Past 30 Days: Yes Smoking Status: Current every day smoker Tobacco Type: E-Cigarettes - Alcohol History How Often Do You Have a Drink Containing Alcohol: Never - Substance Use History Substance History: Past History - Travel History Recent Travel Out of the Country Within the Last 8 Weeks: No - Immunization History Tetanus Immunization: Unsure <Ale Arciniega - Last Filed: 12/13/17 17:28> - Medical History Medical History: Medical History (Last Reviewed 12/13/17 @ 03:57 by Tegan Patel MD) Depression Gallbladder disease History of Clostridium difficile infection - Surgical History Surgical History: Surgical History (Last Updated 12/13/17 @ 03:58 by Tegan Patel MD) H/O knee surgery S/P cholecystectomy Status post surgical removal of malignant neoplasm of skin - Family History Family History: Family History (Last Updated 12/13/17 @ 09:26 by Abdelrahman Gonsalves MD) Father Diabetes Mother Diabetes Other CAD (coronary artery disease) Family history of breast cancer Family history of hypertension <Forrest Quinonez - Last Filed: 12/14/17 01:05> Medications and Allergies Active Medications: Active Medications Sodium Chloride (Ns Inj) 1,000 mls @ 125 mls/hr IV.CONT .Q8H CAT Last Admin: 12/13/17 07:32 Dose: 125 mls/hr Morphine Sulfate (Morphine Inj) 2 mg IV.PUSH Q4H PRN PRN Reason: pain 6-10 Nicotine (Habitrol 14 Mg Patch.24 Hr) 1 patch T-DERMAL DAILY [facility] Ondansetron HCl (Zofran Inj) 4 mg IV.PUSH Q6H PRN PRN Reason: Nausea And Vomiting Last Admin: 12/13/17 09:16 Dose: 4 mg Patch Removal (Remove Old Patch) 1 each T-DERMAL DAILY [facility] Sodium Chloride (Ns Flush) 2 ml IV.FLUSH PRN PRN PRN Reason: FLUSH AFTER USING IV ACCESS <Ale Arciniega - Last Filed: 12/13/17 17:28> Active Medications: Active Medications Sodium Chloride (Ns Inj) 1,000 mls @ 125 mls/hr IV.CONT .Q8H CAT Last Admin: 12/13/17 23:46 Dose: Not Given Lactated Ringer's (Lr 1000 Ml Inj) 1,000 mls @ 30 mls/hr IV.SIG .Q24H [facility] Stop: 12/17/17 01:00 Morphine Sulfate (Morphine Inj) 2 mg IV.PUSH Q4H PRN PRN Reason: pain 6-10 Nicotine (Habitrol 14 Mg Patch.24 Hr) 1 patch T-DERMAL DAILY [facility] Last Admin: 12/13/17 18:06 Dose: 1 patch Ondansetron HCl (Zofran Inj) 4 mg IV.PUSH Q6H PRN PRN Reason: Nausea And Vomiting Last Admin: 12/13/17 21:37 Dose: 4 mg Patch Removal (Remove Old Patch) 1 each T-DERMAL DAILY [facility] Last Admin: 12/13/17 18:09 Dose: Not Given Sodium Chloride (Ns Flush) 2 ml IV.FLUSH PRN PRN PRN Reason: FLUSH AFTER USING IV ACCESS <Forrest Quinonez E - Last Filed: 12/14/17 01:05> Allergies Allergy/AdvReac Type Severity Reaction Status Date / Time Penicillins Allergy Severe Anaphylaxis Verified 12/13/17 03:02 Home Medications Medication Instructions Recorded Confirmed Type paroxetine HCl [Paxil] 15 mg PO DAILY 12/13/17 12/13/17 History Exam Vital signs: Vital Signs 12/13/17 03:03 12/13/17 03:14 12/13/17 06:08 Temperature 97.8 F Pulse Rate 89 90 78 Respiratory Rate 19 16 18 Blood Pressure 128/60 128/60 133/64 Pulse Oximetry 96 95 12/13/17 07:00 12/13/17 07:14 12/13/17 08:41 Temperature 97.8 F 97.7 F Pulse Rate 83 79 Respiratory Rate 18 16 Blood Pressure 141/77 H 138/77 Pulse Oximetry 99 100 99 12/13/17 11:15 12/13/17 12:25 12/13/17 13:14 Temperature 97.8 F 97.7 F 97.8 F Pulse Rate 83 81 102 H Respiratory Rate 15 16 18 Blood Pressure 144/65 H 134/77 132/61 Pulse Oximetry 99 98 97 Intake & Output 12/12/17 12/13/17 12/13/17 18:59 06:59 18:59 Intake Total 750 / 750 Balance 750 / 750 Weight 95.254 kg Intake: IV 750 / 750 NS Inj 1,000 ML @ 125 mls/hr IV 250 / 250 .CONT .Q8H CAT Rx#:[id number] NS Inj 500 ML @ Wide Open IV. 500 / 500 SIG BOLUS ONE Rx#:[id number] - Constitutional no acute distress - Routine HEENT Exam Head: Present: normocephalic ENT: Present: mucous membranes moist (Mild overweight) - Routine Respiratory Exam Present: accessory muscle use (No obvious rhonchi or wheezing respirations are even and unlabored) - Routine Cardiovascular Exam Present: S1, S2 - Routine Abdominal Exam Present: soft (Round, dull ache often known in the right upper quadrant and epigastric region) - Routine Skin Exam Present: intact - Routine Neurological Exam Present: alert (Fair to good historian) <Ale Arciniega - Last Filed: 12/13/17 17:28> Vital signs: Vital Signs 12/13/17 03:03 12/13/17 03:14 12/13/17 06:08 Temperature 97.8 F Pulse Rate 89 90 78 Respiratory Rate 19 16 18 Blood Pressure 128/60 128/60 133/64 Pulse Oximetry 96 95 12/13/17 07:00 12/13/17 07:14 12/13/17 08:41 Temperature 97.8 F 97.7 F Pulse Rate 83 79 Respiratory Rate 18 16 Blood Pressure 141/77 H 138/77 Pulse Oximetry 99 100 99 12/13/17 11:15 12/13/17 12:25 12/13/17 13:14 Temperature 97.8 F 97.7 F 97.8 F Pulse Rate 83 81 102 H Respiratory Rate 15 16 18 Blood Pressure 144/65 H 134/77 132/61 Pulse Oximetry 99 98 97 12/13/17 16:00 12/13/17 20:00 Temperature 97.9 F 97.3 F L Pulse Rate 93 H 111 H Respiratory Rate 18 18 Blood Pressure 142/70 H 125/57 L Pulse Oximetry 98 100 Intake & Output 12/13/17 12/13/17 12/14/17 06:59 18:59 06:59 Intake Total 1750 / 1750 Balance 1750 / 1750 Weight 95.254 kg Intake: IV 1750 / 1750 NS Inj 1,000 ML @ 125 mls/hr IV 1250 / 1250 .CONT .Q8H CAT Rx#:[id number] NS Inj 500 ML @ Wide Open IV. 500 / 500 SIG BOLUS ONE Rx#:[id number] Other: Date of Last Bowel Movement 12/12/17 <Sa Cristianoud E - Last Filed: 12/14/17 01:05> Results - Labs CBC & Chem 7: 12/13/17 03:30 12/13/17 03:30 Labs: Laboratory Results - last 24 hr 12/13/17 12/13/17 12/13/17 03:30 03:30 03:30 WBC 11.2 H RBC 4.16 Hgb 9.0 L Hct 29.7 L MCV 71.4 L MCH 21.6 L MCHC 30.3 L RDW 16.7 Plt Count 331 MPV 7.5 Neut % (Auto) 86.6 H Lymph % (Auto) 6.8 L [place] % (Auto) 5.0 Eos % (Auto) 1.0 Baso % (Auto) 0.6 Neut # (Auto) 9.7 H Lymph # (Auto) 0.8 L [place] # (Auto) 0.6 Eos # (Auto) 0.1 Baso # (Auto) 0.1 WBC Differential . Differential Comment Auto diff final ESR 59 H Sodium 140 Potassium 3.9 Chloride 107 Carbon Dioxide 24.6 Anion Gap 8 BUN 15 Creatinine 1.24 H Estimated GFR 44 L Random Glucose 204 H Hemoglobin A1c Calcium 9.5 Total Bilirubin 0.4 AST 16 ALT 14 Alkaline Phosphatase 69 Total Creatine Kinase 42 Troponin I Less than 0.02 L B-Natriuretic Peptide Total Protein 7.2 Albumin 3.4 Triglycerides Cholesterol LDL Cholesterol, Calc HDL Cholesterol Cholesterol/HDL Ratio Lipase 86 Vitamin B12 TSH 2.650 Urine Color Urine Clarity Urine pH Ur Specific [place] Urine Protein Urine Glucose (UA) Urine Ketones Urine Occult Blood Urine Nitrate Urine Bilirubin Urine Urobilinogen Ur Leukocyte Esterase Urine RBC Urine WBC Ur Squamous Epith Cells Urine Bacteria Urine Mucus Micro UA Comment Urine Culture Comments 12/13/17 12/13/17 12/13/17 03:30 03:30 03:30 WBC RBC Hgb Hct MCV MCH MCHC RDW Plt Count MPV Neut % (Auto) Lymph % (Auto) [place] % (Auto) Eos % (Auto) Baso % (Auto) Neut # (Auto) Lymph # (Auto) [place] # (Auto) Eos # (Auto) Baso # (Auto) WBC Differential Differential Comment ESR Sodium Potassium Chloride Carbon Dioxide Anion Gap BUN Creatinine Estimated GFR Random Glucose Hemoglobin A1c 5.9 Calcium Total Bilirubin AST ALT Alkaline Phosphatase Total Creatine Kinase Troponin I B-Natriuretic Peptide 19 Total Protein Albumin Triglycerides Cholesterol LDL Cholesterol, Calc HDL Cholesterol Cholesterol/HDL Ratio Lipase Vitamin B12 TSH 2.620 Urine Color Urine Clarity Urine pH Ur Specific [place] Urine Protein Urine Glucose (UA) Urine Ketones Urine Occult Blood Urine Nitrate Urine Bilirubin Urine Urobilinogen Ur Leukocyte Esterase Urine RBC Urine WBC Ur Squamous Epith Cells Urine Bacteria Urine Mucus Micro UA Comment Urine Culture Comments 12/13/17 12/13/17 03:30 13:08 WBC RBC Hgb Hct MCV MCH MCHC RDW Plt Count MPV Neut % (Auto) Lymph % (Auto) [place] % (Auto) Eos % (Auto) Baso % (Auto) Neut # (Auto) Lymph # (Auto) [place] # (Auto) Eos # (Auto) Baso # (Auto) WBC Differential Differential Comment ESR Sodium Potassium Chloride Carbon Dioxide Anion Gap BUN Creatinine Estimated GFR Random Glucose Hemoglobin A1c Calcium Total Bilirubin AST ALT Alkaline Phosphatase Total Creatine Kinase Troponin I B-Natriuretic Peptide Total Protein Albumin Triglycerides 154 H Cholesterol 153 LDL Cholesterol, Calc 85 HDL Cholesterol 37.0 L Cholesterol/HDL Ratio 4.13 Lipase Vitamin B12 263 TSH Urine Color Yellow Urine Clarity Hazy H Urine pH 5.0 Ur Specific [place] Greater than 1.060 H Urine Protein 30 H Urine Glucose (UA) Negative Urine Ketones Negative Urine Occult Blood Negative Urine Nitrate Negative Urine Bilirubin Negative Urine Urobilinogen 2.0 H Ur Leukocyte Esterase Moderate H Urine RBC 9 H Urine WBC 6 H Ur Squamous Epith Cells 13 Urine Bacteria Moderate H Urine Mucus Moderate H Micro UA Comment Culture indicated Urine Culture Comments Culture indicated - Imaging Impressions Chest X-Ray 12/13/17 03:52 CONCLUSION: 1.5 cm nodular density associated with the right third costochondral junction. This could relate to calcification at the costochondral junction. I cannot exclude a pulmonary nodule. A CT of the thorax is suggested as an outpatient for follow-up. No acute intrathoracic abnormality otherwise. Abdomen/Pelvis CT 12/13/17 03:54 CONCLUSION: 1. Small bowel obstruction. Obstruction is felt to be secondary to possible mass at the ileocecal valve. The appendix is unremarkable. 2. 1.5 cm indeterminate cortical based lesion involving the left kidney. I cannot exclude a solid mass. Consideration could be made to ultrasound to further assess. 3. Prior cholecystectomy. <Ale Arciniega - Last Filed: 12/13/17 17:28> - Labs CBC & Chem 7: 12/13/17 03:30 12/13/17 03:30 Labs: Laboratory Results - last 24 hr 12/13/17 12/13/17 12/13/17 03:30 03:30 03:30 WBC 11.2 H RBC 4.16 Hgb 9.0 L Hct 29.7 L MCV 71.4 L MCH 21.6 L MCHC 30.3 L RDW 16.7 Plt Count 331 MPV 7.5 Neut % (Auto) 86.6 H Lymph % (Auto) 6.8 L [place] % (Auto) 5.0 Eos % (Auto) 1.0 Baso % (Auto) 0.6 Neut # (Auto) 9.7 H Lymph # (Auto) 0.8 L [place] # (Auto) 0.6 Eos # (Auto) 0.1 Baso # (Auto) 0.1 WBC Differential . Differential Comment Auto diff final ESR 59 H Sodium 140 Potassium 3.9 Chloride 107 Carbon Dioxide 24.6 Anion Gap 8 BUN 15 Creatinine 1.24 H Estimated GFR 44 L Random Glucose 204 H Hemoglobin A1c Calcium 9.5 Total Bilirubin 0.4 AST 16 ALT 14 Alkaline Phosphatase 69 Total Creatine Kinase 42 Troponin I Less than 0.02 L B-Natriuretic Peptide Total Protein 7.2 Albumin 3.4 Triglycerides Cholesterol LDL Cholesterol, Calc HDL Cholesterol Cholesterol/HDL Ratio Lipase 86 Vitamin B12 TSH 2.650 Urine Color Urine Clarity Urine pH Ur Specific [place] Urine Protein Urine Glucose (UA) Urine Ketones Urine Occult Blood Urine Nitrate Urine Bilirubin Urine Urobilinogen Ur Leukocyte Esterase Urine RBC Urine WBC Ur Squamous Epith Cells Urine Bacteria Urine Mucus Micro UA Comment Urine Culture Comments 12/13/17 12/13/17 12/13/17 03:30 03:30 03:30 WBC RBC Hgb Hct MCV MCH MCHC RDW Plt Count MPV Neut % (Auto) Lymph % (Auto) [place] % (Auto) Eos % (Auto) Baso % (Auto) Neut # (Auto) Lymph # (Auto) [place] # (Auto) Eos # (Auto) Baso # (Auto) WBC Differential Differential Comment ESR Sodium Potassium Chloride Carbon Dioxide Anion Gap BUN Creatinine Estimated GFR Random Glucose Hemoglobin A1c 5.9 Calcium Total Bilirubin AST ALT Alkaline Phosphatase Total Creatine Kinase Troponin I B-Natriuretic Peptide 19 Total Protein Albumin Triglycerides Cholesterol LDL Cholesterol, Calc HDL Cholesterol Cholesterol/HDL Ratio Lipase Vitamin B12 TSH 2.620 Urine Color Urine Clarity Urine pH Ur Specific [place] Urine Protein Urine Glucose (UA) Urine Ketones Urine Occult Blood Urine Nitrate Urine Bilirubin Urine Urobilinogen Ur Leukocyte Esterase Urine RBC Urine WBC Ur Squamous Epith Cells Urine Bacteria Urine Mucus Micro UA Comment Urine Culture Comments 12/13/17 12/13/17 03:30 13:08 WBC RBC Hgb Hct MCV MCH MCHC RDW Plt Count MPV Neut % (Auto) Lymph % (Auto) [place] % (Auto) Eos % (Auto) Baso % (Auto) Neut # (Auto) Lymph # (Auto) [place] # (Auto) Eos # (Auto) Baso # (Auto) WBC Differential Differential Comment ESR Sodium Potassium Chloride Carbon Dioxide Anion Gap BUN Creatinine Estimated GFR Random Glucose Hemoglobin A1c Calcium Total Bilirubin AST ALT Alkaline Phosphatase Total Creatine Kinase Troponin I B-Natriuretic Peptide Total Protein Albumin Triglycerides 154 H Cholesterol 153 LDL Cholesterol, Calc 85 HDL Cholesterol 37.0 L Cholesterol/HDL Ratio 4.13 Lipase Vitamin B12 263 TSH Urine Color Yellow Urine Clarity Hazy H Urine pH 5.0 Ur Specific [place] Greater than 1.060 H Urine Protein 30 H Urine Glucose (UA) Negative Urine Ketones Negative Urine Occult Blood Negative Urine Nitrate Negative Urine Bilirubin Negative Urine Urobilinogen 2.0 H Ur Leukocyte Esterase Moderate H Urine RBC 9 H Urine WBC 6 H Ur Squamous Epith Cells 13 Urine Bacteria Moderate H Urine Mucus Moderate H Micro UA Comment Culture indicated Urine Culture Comments Culture indicated - Imaging Impressions Chest X-Ray 12/13/17 03:52 CONCLUSION: 1.5 cm nodular density associated with the right third costochondral junction. This could relate to calcification at the costochondral junction. I cannot exclude a pulmonary nodule. A CT of the thorax is suggested as an outpatient for follow-up. No acute intrathoracic abnormality otherwise. Abdomen/Pelvis CT 12/13/17 03:54 CONCLUSION: 1. Small bowel obstruction. Obstruction is felt to be secondary to possible mass at the ileocecal valve. The appendix is unremarkable. 2. 1.5 cm indeterminate cortical based lesion involving the left kidney. I cannot exclude a solid mass. Consideration could be made to ultrasound to further assess. 3. Prior cholecystectomy. <Forrest Quinonez E - Last Filed: 12/14/17 01:05> Assessment and Plan (1) Mass of cecum Status: Acute Code(s): K63.9 - Disease of intestine, unspecified (2) Small bowel obstruction Status: Acute Code(s): K56.609 - Unspecified intestinal obstruction, unspecified as to partial versus complete obstruction - Plan CT scan shows SBO probably secondary to a cecal mass. Symptoms include right upper quadrant and right lower quadrant abdominal pain off and on for the past 2 years with decreased appetite over the past year Constipation off and on, onset over the past few months no melena no obvious rectal bleeding. This could be related to the cecum mass Dyspepsia initially started out often known with a rare event , aggravated after eating. Patient states symptoms have worsened over the past week with nausea vomiting and uncontrolled dyspepsia No previous history of EGD or colonoscopy No family history of colon cancer Other symptoms include dizziness some loose diarrhea stools over the past few days. Probable secondary to #1 Patient also has general surgery consult and evaluation. Gastroenterology has also been consulted to assist and colonoscopy for evaluation of cecal mass Plan Diet clear liquids tonight N.p.o. at midnight Consent for EGD and colonoscopy in a.m., already scheduled GoLYTELY prep encourage patient to drink all of the prep Hold any blood thinners Monitor her labs Further recommendations to follow after EGD and colonoscopy Patient was seen per myself and Dr. Quinonez, note was written on his behalf <Ale Arciniega M - Last Filed: 12/13/17 17:28> (1) Mass of cecum Status: Acute Code(s): K63.9 - Disease of intestine, unspecified (2) Small bowel obstruction Status: Acute Code(s): K56.609 - Unspecified intestinal obstruction, unspecified as to partial versus complete obstruction - Attending Attestation Patient seen and examined Agree with above Continue with current supportive care Monitor labs Plan for an EGD and a colonoscopy tomorrow in addition to getting tumor markers <Forrest Quinonez E - Last Filed: 12/14/17 01:05>
--- NOTE | 2017-12-13 19:28 | ECG ---
Date Performed: 12/13/2017 Time Performed: 03:19:39 PTAGE: 62 years EKG: Sinus rhythm NONSPECIFIC T-WAVE ABNORMALITY BORDERLINE ECG NO PREVIOUS TRACING DOCTOR: Darek Azul Interpretating Date/Time 12/13/2017 19:28:08
[2017-12-14 09:05] LABS: Baso # (Auto) 0.1 th/mm3 (0.0-0.2); Baso % (Auto) 0.8 % (0.0-2.0); Eos # (Auto) 0.2 th/mm3 (0.0-0.4); Eos % (Auto) 3.7 % (0.0-4.0); Hematocrit 23.6 % (35.0-46.0); Hemoglobin 7.3 gm/dL (11.6-15.3); Lymph # (Auto) 1.5 th/mm3 (1.0-4.8); Lymph % (Auto) 22.4 % (9.0-44.0); Mean Corpuscular Hemoglobin 22.2 pg (27.0-34.0); Mean Corpuscular Volume 71.9 fL (80.0-100.0); Mean Platelet Volume 7.5 fL (7.0-11.0); Mono # (Auto) 0.5 th/mm3 (0.0-0.9); Mono % (Auto) 8.2 % (0.0-8.0); Neut # (Auto) 4.3 th/mm3 (1.8-7.7); Neut % (Auto) 64.9 % (16.0-70.0); Platelet Count 246 th/mm3 (150-450); Red Blood Count 3.28 mil/mm3 (4.00-5.30); Red Cell Distribution Width 16.1 % (11.6-17.2); White Blood Count 6.7 th/mm3 (4.0-11.0)
[2017-12-14 09:12] LABS: Mean Corpuscular HGB Conc 30.9 % (32.0-36.0)
[2017-12-14 09:49] LABS: Calcium 8.5 mg/dL (8.5-10.1); Carbon Dioxide 24.8 meq/L (21.0-32.0); Potassium 3.5 meq/L (3.5-5.1)
[2017-12-14] MEDS: Sod Chloride 0.9% Inj 1,000 ML IV.CONT SCH ×3 (10:55→23:17)
[2017-12-14] MEDS ORDERED: Lidocaine PF 1% Inj 5 ML Syringe INFILTRATN ONE (12:00)
--- NOTE | 2017-12-14 12:03 | P.PN ---
Subjective Interval history: This is a pleasant 62 y/o Female who came to ER with complaint of nausea, vomit and Diarrhea, generalized weakness, lightheaded sensation and dizziness. had C. difficile colitis 2 years ago. has Depression, Tobacco dependence, was indicated for admission by ER physician , observation The patient is been having symptomatology for the last two years she went to her PCP during the last two years with pain on the Right lower quadrant. 12/14: Seen in her bedroom discussed with nurse Miss Sierra and at this time will go for EGD and Colonoscopy by GI specialist, no nausea, vomit or diarrhea. Physical Exam Vital signs: Vital Signs 12/13/17 12:25 12/13/17 13:14 12/13/17 16:00 Temperature 97.7 F 97.8 F 97.9 F Pulse Rate 81 102 H 93 H Respiratory Rate 16 18 18 Blood Pressure 134/77 132/61 142/70 H Pulse Oximetry 98 97 98 12/13/17 20:00 12/14/17 00:00 12/14/17 06:14 Temperature 97.3 F L 97.8 F 97.9 F Pulse Rate 111 H 116 H 88 Respiratory Rate 18 19 18 Blood Pressure 125/57 L 126/64 127/64 Pulse Oximetry 100 100 98 12/14/17 08:00 Temperature 97.9 F Pulse Rate 97 H Respiratory Rate 17 Blood Pressure 136/63 Pulse Oximetry 97 Intake & Output 12/13/17 12/14/17 12/14/17 18:59 06:59 18:59 Intake Total 1750 / 1750 1900 / 1900 Output Total Balance 1750 / 1750 1893 / 1893 Weight 95.5 kg Intake: IV 1750 / 1750 1000 / 1000 NS Inj 1,000 ML @ 125 mls/hr IV 1250 / 1250 1000 / 1000 .CONT .Q8H CAT Rx#:[id number] NS Inj 500 ML @ Wide Open IV. 500 / 500 SIG BOLUS ONE Rx#:[id number] Oral 900 / 900 Output: Stool Other: # Voids 5 Date of Last Bowel Movement 12/12/17 12/14/17 Narrative: GENERAL: This is a well-nourished, well-developed patient, in no apparent distress. CARDIOVASCULAR: Regular rate and rhythm without murmurs, gallops, or rubs. RESPIRATORY: Clear to auscultation. Breath sounds equal bilaterally. No wheezes , rales, or rhonchi. GASTROINTESTINAL: Soft, mild tenderness on right lower quadrant. MUSCULOSKELETAL: Extremities without clubbing, cyanosis, or edema. NEURO: Alert & Oriented x4 to person, place, time, situation. Moves all ext x4 Results - Labs CBC & Chem 7: 12/14/17 06:04 12/14/17 06:04 Laboratory Results - last 24 hr 12/13/17 12/13/17 12/14/17 03:30 13:08 06:04 WBC 6.7 RBC 3.28 L Hgb 7.3 L Hct 23.6 L MCV 71.9 L MCH 22.2 L MCHC 30.9 L RDW 16.1 Plt Count 246 MPV 7.5 Neut % (Auto) 64.9 Lymph % (Auto) 22.4 [place] % (Auto) 8.2 H Eos % (Auto) 3.7 Baso % (Auto) 0.8 Neut # (Auto) 4.3 Lymph # (Auto) 1.5 [place] # (Auto) 0.5 Eos # (Auto) 0.2 Baso # (Auto) 0.1 WBC Differential . Differential Comment Auto diff final Sodium Potassium Chloride Carbon Dioxide Anion Gap BUN Creatinine Estimated GFR Random Glucose Hemoglobin A1c 5.9 Calcium Carcinoembryonic Ag Urine Color Yellow Urine Clarity Hazy H Urine pH 5.0 Ur Specific [place] Greater than 1.060 H Urine Protein 30 H Urine Glucose (UA) Negative Urine Ketones Negative Urine Occult Blood Negative Urine Nitrate Negative Urine Bilirubin Negative Urine Urobilinogen 2.0 H Ur Leukocyte Esterase Moderate H Urine RBC 9 H Urine WBC 6 H Ur Squamous Epith Cells 13 Urine Bacteria Moderate H Urine Mucus Moderate H Micro UA Comment Culture indicated Urine Culture Comments Culture indicated 12/14/17 12/14/17 06:04 06:04 WBC RBC Hgb Hct MCV MCH MCHC RDW Plt Count MPV Neut % (Auto) Lymph % (Auto) [place] % (Auto) Eos % (Auto) Baso % (Auto) Neut # (Auto) Lymph # (Auto) [place] # (Auto) Eos # (Auto) Baso # (Auto) WBC Differential Differential Comment Sodium 143 Potassium 3.5 Chloride 109 H Carbon Dioxide 24.8 Anion Gap 9 BUN 16 Creatinine 0.88 Estimated GFR 65 L Random Glucose 76 D Hemoglobin A1c Calcium 8.5 D Carcinoembryonic Ag 1.0 Urine Color Urine Clarity Urine pH Ur Specific [place] Urine Protein Urine Glucose (UA) Urine Ketones Urine Occult Blood Urine Nitrate Urine Bilirubin Urine Urobilinogen Ur Leukocyte Esterase Urine RBC Urine WBC Ur Squamous Epith Cells Urine Bacteria Urine Mucus Micro UA Comment Urine Culture Comments - Imaging Chest X-Ray 12/13/17 03:52 CONCLUSION: 1.5 cm nodular density associated with the right third costochondral junction. This could relate to calcification at the costochondral junction. I cannot exclude a pulmonary nodule. A CT of the thorax is suggested as an outpatient for follow-up. No acute intrathoracic abnormality otherwise. Abdomen/Pelvis CT 12/13/17 03:54 CONCLUSION: 1. Small bowel obstruction. Obstruction is felt to be secondary to possible mass at the ileocecal valve. The appendix is unremarkable. 2. 1.5 cm indeterminate cortical based lesion involving the left kidney. I cannot exclude a solid mass. Consideration could be made to ultrasound to further assess. 3. Prior cholecystectomy. Assessment and Plan - Plan 1. Small Bowel Obstruction, had CT of Abdomen and Pelvis, with result of SBO, secondary to probable mass on Ileocecal valve, appendix unremarkable, 1.5 cm indeterminate cortical based lesion involving the left kidney cannot exclude a solid mass, prior cholecystectomy asked for General personal security specialist. awaiting for EGD and Colonoscopy 2. Depression continue Home medicines once able to take by mouth. 3. Tobacco dependence strongly recommended stop smoking. DVT prophylaxis with SCDs. awaiting probable surgical procedure. Code Status: Full code Discussed Condition With: Patient and nurse Miss Sierra Discharge Planning: Once cleared by General Surgery and GI specialist.
--- NOTE | 2017-12-14 16:59 | P.PCN ---
Date of procedure: 12/14/17 Pre-op diagnosis: Small bowel obstruction, cecal mass Procedure: PROCEDURE PERFORMED EGD with biopsies followed by colonoscopy with biopsies and snare polypectomy INDICATION FOR PROCEDURE Small bowel obstruction, abnormal CT findings suggestive of a cecal mass PROCEDURE: The procedure, risks and benefits were discussed with Patient/POA and informed consent was obtained. Anesthesia sedated Patient with Diprivan. Patient was placed in the left lateral decubitus position. EGD: The Pentax videoscope was introduced through the oropharynx and advanced to the second portion of the duodenum under direct visualization. Retroflexion was performed in the stomach. FINDINGS: The esophagus the patient had distal esophageal mucosal erythema suggestive of reflux esophagitis grade B this was biopsied Stomach there was a small hiatal hernia there was patchy erythema with erosions noted in the antrum this was biopsied the rest of the stomach was unremarkable The duodenum there was patchy erythema in the duodenal bulb and duodenal sweep otherwise the rest of the duodenum was unremarkable the erythema was biopsied Colonoscopy: The Pentax videoscope was introduced through the rectum and advanced to cecum where the ileocecal valve and appendiceal orifice were identified. Retroflexion was performed in the rectum. Colonic prep was good FINDINGS: Colonic withdrawal time greater than 6 minutes. As the scope was slowly withdrawn colonic mucosa was carefully inspected the patient was noted to have a large mass filling the cecum irregular and friable very suggestive of a malignancy multiple biopsies were taken as the scope was withdrawn the patient was noted to have sessile polyp in the descending colon this was small to medium in size this was excised using cold snare technique and it was retrieved for further evaluation a second smaller polyp was noted in the sigmoid this too was excised using cold snare technique and retrieved for further evaluation in the rectum there were multiple small nodular polyps probably hyperplastic few biopsies were taken to further evaluate these findings retroflexion in the rectum did reveal moderate size internal hemorrhoids rectal examination otherwise unremarkable ESTIMATED BLOOD LOSS: Minimal SPECIMENS REMOVED: Esophageal, gastric, duodenal, colon biopsies COMPLICATIONS: None IMPRESSION: Reflux esophagitis Hiatal hernia Erosive gastritis Duodenitis Cecal mass probable malignancy Colon polyps Internal hemorrhoids PLAN: Await biopsies Recommend Protonix 40 mg daily Recommend colonoscopy in 3 years Recommend surgical resection of the cecal mass Anesthesia: CHIKI Surgeon: Forrest Quinonez Condition: stable Disposition: floor
[2017-12-15] MEDS: Sod Chloride 0.9% Inj 1,000 ML IV.CONT SCH ×2 (08:07→17:07)
--- NOTE | 2017-12-15 12:10 | P.PNGS ---
Subjective Interval history: Had loose stools. She had colonoscopy yesterday showing large cecal mass concerning for malignancy. Physical Exam Vital signs: Vital Signs 12/14/17 17:00 12/14/17 17:15 12/14/17 17:30 Temperature 97 F L 97.3 F L Pulse Rate 84 72 74 Respiratory Rate 15 15 15 Blood Pressure 125/60 130/62 134/61 Pulse Oximetry 100 100 97 12/14/17 18:00 12/14/17 20:00 12/15/17 00:00 Temperature 97.1 F L 97.8 F 97.9 F Pulse Rate 78 88 93 H Respiratory Rate 19 21 20 Blood Pressure 142/67 H 150/70 H 152/77 H Pulse Oximetry 96 100 98 12/15/17 04:47 12/15/17 08:00 Temperature 97.9 F 98.2 F Pulse Rate 92 H 98 H Respiratory Rate 20 17 Blood Pressure 122/60 148/66 H Pulse Oximetry 95 97 Intake & Output 12/14/17 12/15/17 12/15/17 18:59 06:59 18:59 Intake Total 800 / 800 2300 / 2300 Balance 800 / 800 2300 / 2300 Weight 95.5 kg Intake: IV 1000 / 1000 NS Inj 1,000 ML @ 125 mls/hr IV 1000 / 1000 .CONT .Q8H CAT Rx#:[id number] Oral 300 / 300 1300 / 1300 Anesthesia Amount 500 / 500 Other: # Voids 5 3 Date of Last Bowel Movement 12/14/17 Narrative: NAD Abd: soft, mild RLQ ttp Assessment and Plan - Assessment (1) Small bowel obstruction Code(s): K56.609 - Unspecified intestinal obstruction, unspecified as to partial versus complete obstruction Status: Acute - Plan Cecal mass likely malignancy. D/w Dr. Quinonez. Recomend proceed to laparoscopic assisted ascending colectomy tomorrow or Tuesday depending on OR schedule. Discussed rationale and details of case with the patient and she desires to proceed BLAS. Will type and screen and recheck cbc in am. She may require transfusion.
--- NOTE | 2017-12-15 17:08 | P.PN ---
Subjective Interval history: This is a pleasant 62 y/o Female who came to ER with complaint of nausea, vomit and Diarrhea, generalized weakness, lightheaded sensation and dizziness. had C. difficile colitis 2 years ago. has Depression, Tobacco dependence, was indicated for admission by ER physician , observation The patient is been having symptomatology for the last two years she went to her PCP during the last two years with pain on the Right lower quadrant. 12/14: Seen in her bedroom discussed with nurse Miss Sierra and at this time will go for EGD and Colonoscopy by GI specialist. 12/15: Status post Colonoscopy found Cecal mass likely malignancy, recommended for laparoscopic assisted Colectomy, at this time in her room stable, no new issues, no nausea, vomit or diarrhea. Physical Exam Vital signs: Vital Signs 12/14/17 17:15 12/14/17 17:30 12/14/17 18:00 Temperature 97.3 F L 97.1 F L Pulse Rate 72 74 78 Respiratory Rate 15 15 19 Blood Pressure 130/62 134/61 142/67 H Pulse Oximetry 100 97 96 12/14/17 20:00 12/15/17 00:00 12/15/17 04:47 Temperature 97.8 F 97.9 F 97.9 F Pulse Rate 88 93 H 92 H Respiratory Rate 21 20 20 Blood Pressure 150/70 H 152/77 H 122/60 Pulse Oximetry 100 98 95 12/15/17 08:00 12/15/17 12:00 12/15/17 16:00 Temperature 98.2 F 97.9 F 98.2 F Pulse Rate 98 H 80 82 Respiratory Rate 17 14 18 Blood Pressure 148/66 H 144/69 H 162/75 H Pulse Oximetry 97 96 97 Intake & Output 12/14/17 12/15/17 12/15/17 18:59 06:59 18:59 Intake Total 800 / 800 2300 / 2300 Balance 800 / 800 2300 / 2300 Weight 95.5 kg Intake: IV 1000 / 1000 NS Inj 1,000 ML @ 125 mls/hr IV 1000 / 1000 .CONT .Q8H CAT Rx#:[id number] Oral 300 / 300 1300 / 1300 Anesthesia Amount 500 / 500 Other: # Voids 5 3 Date of Last Bowel Movement 12/14/17 Narrative: GENERAL: This is a well-nourished, well-developed patient, in no apparent distress. CARDIOVASCULAR: Regular rate and rhythm without murmurs, gallops, or rubs. RESPIRATORY: Clear to auscultation. Breath sounds equal bilaterally. No wheezes , rales, or rhonchi. GASTROINTESTINAL: Abdomen soft, non-tender, nondistended. Normal active bowel sounds MUSCULOSKELETAL: Extremities without clubbing, cyanosis, or edema. NEURO: Alert & Oriented x4 to person, place, time, situation. Moves all ext x4 Results - Labs CBC & Chem 7: 12/14/17 06:04 12/14/17 06:04 Laboratory Results - last 24 hr 12/13/17 12/15/17 11:26 13:13 Vit D 1,25-Dihydroxy 82 H Blood Type O Positive Blood Type Recheck Required Antibody Screen Negative Microbiology 12/13/17 13:08 Clean Catch Urine Urine Culture - Final 50-100,000 cfu/mL mixed gram positive carmelita (probable contaminants) Assessment and Plan - Plan 1. Small Bowel Obstruction, had CT of Abdomen and Pelvis, with result of SBO, secondary to probable mass on Ileocecal valve, appendix unremarkable, 1.5 cm indeterminate cortical based lesion involving the left kidney cannot exclude a solid mass, found Cecal mass likely malignancy scheduled for Laparoscopic assisted Colectomy. on EGD found Hiatal hernia, Erosive gastritis, started on PPIs. 2. Depression continue Home medicines once able to take by mouth. 3. Tobacco dependence strongly recommended stop smoking. DVT prophylaxis with SCDs. awaiting probable surgical procedure. Code Status: Full code. Discussed Condition With: patient and nurse Miss Garsia. Discharge Planning: Once cleared by General Surgery and GI specialist.
[2017-12-16] MEDS: Sod Chloride 0.9% Inj 1,000 ML IV.CONT SCH ×4 (06:43→23:29)
[2017-12-16 07:28] LABS: Mean Corpuscular HGB Conc 31.1 % (32.0-36.0); Mean Corpuscular Hemoglobin 22.2 pg (27.0-34.0); Mean Corpuscular Volume 71.4 fL (80.0-100.0); Mean Platelet Volume 7.1 fL (7.0-11.0); Platelet Count 236 th/mm3 (150-450); Red Blood Count 2.92 mil/mm3 (4.00-5.30); Red Cell Distribution Width 16.1 % (11.6-17.2); White Blood Count 4.6 th/mm3 (4.0-11.0)
[2017-12-16] MEDS ORDERED: Vancomycin Inj 1,500 MG in Sodium Chlor 0.9% Inj 500 ML IV.SIG PRN (08:00)
[2017-12-16 08:12] LABS: Hemoglobin 6.5 gm/dL (11.6-15.3)
[2017-12-16 08:13] LABS: Hematocrit 20.9 % (35.0-46.0)
[2017-12-16] MEDS ORDERED: Ketamine Inj 50 MG/5 ML Syringe IV.PUSH ONE (09:17)
[2017-12-16] MEDS ORDERED: Sodium Chlor 0.9% Inj 250 ML ONE (10:07)
[2017-12-16] MEDS: Bupivacaine/Epinephrine Inj 0.25% 50 ML Vial ONE ×2 (10:13→19:24)
--- NOTE | 2017-12-16 10:20 | P.PN ---
Subjective Interval history: This is a pleasant 62 y/o Female who came to ER with complaint of nausea, vomit and Diarrhea, generalized weakness, lightheaded sensation and dizziness. had C. difficile colitis 2 years ago. has Depression, Tobacco dependence, was indicated for admission by ER physician , observation The patient is been having symptomatology for the last two years she went to her PCP during the last two years with pain on the Right lower quadrant. 12/14: Seen in her bedroom discussed with nurse Miss Sierra and at this time will go for EGD and Colonoscopy by GI specialist. 12/15: Status post Colonoscopy found Cecal mass likely malignancy, recommended for laparoscopic assisted Colectomy, at this time in her room stable, no new issues. 12/16: Discussed early in am with nurse Sun patient with Hemoglobin 6.5 asked for blood transfusion of two units of PRBCs and reserve two more during the surgery. seen after procedure performed in the presence of her , continue pain medicine and following, no nausea, vomit or diarrhea. Physical Exam Vital signs: Vital Signs 12/15/17 12:00 12/15/17 16:00 12/15/17 20:00 Temperature 97.9 F 98.2 F 98.2 F Pulse Rate 80 82 94 H Respiratory Rate 14 18 22 Blood Pressure 144/69 H 162/75 H 166/74 H Pulse Oximetry 96 97 98 12/16/17 00:00 12/16/17 08:00 Temperature 98 F 98.6 F Pulse Rate 84 81 Respiratory Rate 20 17 Blood Pressure 156/67 H 132/60 Pulse Oximetry 96 98 Intake & Output 12/15/17 12/16/17 12/16/17 18:59 06:59 18:59 Intake Total 1900 / 1900 1000 / 1000 400 / 400 Balance 1900 / 1900 1000 / 1000 400 / 400 Weight 92.3 kg Intake: IV 1000 / 1000 1000 / 1000 NS Inj 1,000 ML @ 125 mls/hr IV 1000 / 1000 1000 / 1000 .CONT .Q8H CAT Rx#:[id number] Oral 900 / 900 Intake (Blood Product) Amt 400 / 400 Rbc As-3 Leukoreduced Unit 400 / 400 [id number] Rbc As-3 Leukoreduced Unit 0 / 0 [id number] Other: # Voids 5 3 Date of Last Bowel Movement 12/14/17 # Bowel Movements 1 1 Narrative: GENERAL: Obese, Well-developed patient, in no apparent distress. CARDIOVASCULAR: Regular rate and rhythm without murmurs, gallops, or rubs. RESPIRATORY: Clear to auscultation. Breath sounds equal bilaterally. No wheezes , rales, or rhonchi. GASTROINTESTINAL: Abdomen soft, clean surgical wounds. MUSCULOSKELETAL: Extremities without clubbing, cyanosis, or edema. NEURO: Alert & Oriented x4 to person, place, time, situation. Moves all ext x4 - Urinary Catheter Management Indwelling Urethral Catheter Cath placed during this visit: yes Reason for continuing: Other continuation reason Insertion date: 12/16/17 Insertion time: 10:00 Results - Labs CBC & Chem 7: 12/17/17 06:50 12/17/17 06:50 Laboratory Results - last 24 hr 12/13/17 12/15/17 12/16/17 11:26 13:13 06:46 WBC 4.6 RBC 2.92 L Hgb 6.5 L* Hct 20.9 L* MCV 71.4 L MCH 22.2 L MCHC 31.1 L RDW 16.1 Plt Count 236 MPV 7.1 Vit D 1,25-Dihydroxy 82 H Blood Type O Positive Blood Type Recheck Required Antibody Screen Negative MTS Gel Crossmatch 12/16/17 08:00 WBC RBC Hgb Hct MCV MCH MCHC RDW Plt Count MPV Vit D 1,25-Dihydroxy Blood Type Blood Type Recheck Antibody Screen MTS Gel Crossmatch See Detail - Procedures Date: 12/16/17 12:29 - Preoperative Diagnosis (1) Small bowel obstruction (2) Mass of cecum - Postoperative Diagnosis (1) Small bowel obstruction (2) Mass of cecum Date of procedure: 12/16/17 Procedure: Laparoscopic assisted right colectomy Anesthesia: GETA Surgeon: Geoffrey Nolan MD Assessment and Plan - Plan 1. Small Bowel Obstruction, had CT of Abdomen and Pelvis, with result of SBO, secondary to probable mass on Ileocecal valve, appendix unremarkable, 1.5 cm indeterminate cortical based lesion involving the left kidney cannot exclude a solid mass, found Cecal mass likely malignancy, on EGD found Hiatal hernia, Erosive gastritis, started on PPIs. Status post Laparoscopic assisted Right Colectomy 12/16/17, by Doctor Geoffrey Nolan 2. Anemia on chronic disease giving two units of PRBCs and reserved two more for surgery, Hemoglobin 6.5 3. Depression continue Home medicines once able to take by mouth. 4. Tobacco dependence strongly recommended stop smoking. 5. Obesity strongly recommended diet and exercise. DVT prophylaxis with SCDs. continue as per surgery. Code Status: Full code Discussed Condition With: Patient and her . Discharge Planning: Once cleared by General Surgery and GI specialist.
[2017-12-16] MEDS ORDERED: fentaNYL Citrate Inj 100 MCG/2 ML Ampul ONE ×2 (10:21→12:06)
[2017-12-16 11:24] LABS: ABG Base Excess -1.4 mmol/L (-2-2); ABG PCO2 49 mmHg (38-42); ABG PO2 221 mmHG (61-120)
[2017-12-16] MEDS ORDERED: Ketorolac Inj 30 MG/ML (IVP) Vial IV.PUSH ONE (12:00)
[2017-12-16] MEDS ORDERED: Lidocaine PF 1% Inj 5 ML Syringe INFILTRATN ONE (12:00)
[2017-12-16] MEDS ORDERED: Neostigmine Inj 5 MG/5 ML Syringe IV.PUSH ONE (12:00)
[2017-12-16] MEDS ORDERED: Phenylephrine/NS 1000 MCG/10ML Syringe IV.PUSH ONE (12:00)
[2017-12-16] MEDS ORDERED: Glycopyrrolate Inj 1 MG/5 ML Syringe IV.PUSH ONE (12:00)
[2017-12-16] MEDS ORDERED: Succinylcholine Inj 100 MG/5 ML Syringe IV.PUSH ONE (12:00)
[2017-12-16] MEDS ORDERED: Sodium Chlor 0.9% Inj 250 ML IV.SIG ONE (12:00)
[2017-12-16] MEDS ORDERED: Naloxone Inj 0.4 MG/ML Vial IV.PUSH PRN (12:26)
[2017-12-16] MEDS ORDERED: Post-op Orders (for Pharmacy) OTHER ONE (12:26)
[2017-12-16] MEDS ORDERED: Ketorolac Inj 30 MG/ML (IVP) Vial IV.PUSH SCH (12:30)
--- NOTE | 2017-12-16 12:38 | P.OP ---
- Preoperative Diagnosis (1) Small bowel obstruction (2) Mass of cecum - Postoperative Diagnosis (1) Small bowel obstruction (2) Mass of cecum Date of procedure: 12/16/17 Procedure: Laparoscopic assisted right colectomy Anesthesia: MARÍA ELENA Surgeon: Geoffrey Nolan MD [employer] Mill Supervisor: Marga STUBBS Estimated blood loss (mL): 100 Pathology: other (Right colon with associated cecal mass) Operation and Findings: Patient administered 2U PRBC at initiation of case due to Hgb of 6.5. Operative findings: Large mass of cecum and ascending colon almost certainly malignancy. No evidence of metastatic disease. Procedure in detail: Patient was taken to the operating room placed in supine position. General endotracheal anesthesia was induced. A Spence catheter was placed. Surgical timeout was performed to verify correct patient procedure and site. Appropriate preoperative antibiotics were administered. Local anesthetic was injected in the skin and subcutaneous tissue superior to the umbilicus and a 5 mm incision made. 5 mm Optiview trocar with the laparoscope in place was using into the abdomen without complication. The abdomen was insufflated to 15 mmHg with CO2 gas which the placement tolerated well. A 5 mm port was placed in the epigastrium to the left of the falciform ligament. Another one was placed in the lower midline and one in the left lower abdomen. All were placed under direct laparoscopic visualization. The patient was placed in Trendelenburg position and turned to the left. Attention was initially was turned to mobilization of the terminal ileum and cecum. The cecum was noted to have a large mass with some surrounding inflammatory changes. The peritoneum at the terminal ileum was divided with the harmonic scalpel. The white line of Toldt on the lateral colon was mobilized all the way to the hepatic flexure using the harmonic. The patient was then taken out of Trendelenburg position. Attention was turned to the hepatic flexure and transverse colon. The omentum was from the transverse colon in the avascular plane. There were adhesions between the omentum and colon as well as of the omentum to the liver secondary to her previous open cholecystectomy. These adhesions were carefully divided. As mobilization continued hepatic flexure attachments were fully divided. The second portion of the duodenum was visualized and carefully preserved. The gastrocolic omentum from the transverse colon approximately two th[address] the way across. At this point there was adequate mobilization of the entire right colon. Trochars were then removed. The supraumbilical 5 mm port was extended to create a transverse incision approximately 10 cm. Dissection carried through subcutaneous tissue with electrocautery. The anterior fascia and rectus muscle divided with electrocautery. Posterior fascia divided sharply. Orlin wound retractor placed. The specimen brought up through the incision. Again the mass is quite large and firm. The terminal ileum is divided about 15 cm from the ileocecal valve. The transverse colon was divided proximally one third of the way down just to the right of midline. The ileocolic vessels were identified and isolated and secured with two 0 Vicryl ties at their origin. The harmonic scalpel was used to divide the mesentery. A right branch of the middle colic vessel was also isolated and secured with two 0 Vicryl ties. The specimen was removed. There was appropriate hemostasis. A [id number] functional end-to- end anastomosis was then performed using the ADILSON 75 blue load. The common enterotomy was closed with a TX 60. There is no tension bleeding or hematoma associated with the anastomosis. The mesenteric defect was closed with running 3-0 silk suture. This point the Orlin wound retractor was removed and the anastomosis placed back into the abdominal cavity. The liver is palpated and there are no masses identified. Omentum returned to its appropriate position. The fascia is closed in 2 layers. The wound is irrigated and skin closed with wide skin stapler. The skin of the port sites was closed with 4-0 Vicryl and Dermabond. The patient tolerated the procedure well was extubated and taken to PACU in stable condition. All sponge management counts were correct.
[2017-12-16 13:17] LABS: Hematocrit 25.3 % (35.0-46.0); Hemoglobin 7.9 gm/dL (11.6-15.3); Mean Corpuscular HGB Conc 31.3 % (32.0-36.0); Mean Corpuscular Hemoglobin 23.7 pg (27.0-34.0); Mean Corpuscular Volume 75.6 fL (80.0-100.0); Mean Platelet Volume 6.9 fL (7.0-11.0); Platelet Count 193 th/mm3 (150-450); Red Blood Count 3.35 mil/mm3 (4.00-5.30); Red Cell Distribution Width 18.2 % (11.6-17.2); White Blood Count 6.9 th/mm3 (4.0-11.0)
--- NOTE | 2017-12-16 13:19 | XR ---
EXAM DATE: 12/16/2017 1:09 PM EDT AGE/SEX: 62 years / Female INDICATIONS: Central line placement. CLINICAL DATA: This is the patient's initial encounter. Patient reports that signs and symptoms have been present for 1 day and indicates a pain score of Nonresponsive. MEDICAL/SURGICAL HISTORY: None. None. COMPARISON: C, CHEST 1V SINGLE AP, 12/13/2017. . FINDINGS: Right IJ line is present with tip overlapping the expected region of the SVC. No definite pneumothora x is seen for technique. Previously seen nodular density in right midlung is not reproduced and possi nilton aortic. There is mild subcutaneous emphysema in the right chest wall not present previously. Ther e is of the examination has not changed. CONCLUSION: Central line placed with mild subcutaneous emphysema and no pneumothorax. Previously seen nodular den sity in right midlung is not reproduced possibly technical. Pulmonary nodule is not excluded. Electronically signed by: Lisandra Chavarria MD 12/16/2017 1:18 PM EDT
[2017-12-16] MEDS ORDERED: *morphine SULFATE 4 MG/ML PERIprocedure ONLY ONE (13:38)
[2017-12-16] MEDS: Morphine Inj 4 MG/ML Vial IV.PUSH PRN ×3 (14:54→21:09)
[2017-12-16] MEDS: Ketorolac Inj 30 MG/ML (IVP) Vial IV.PUSH SCH ×2 (17:27→23:26)
[2017-12-17] MEDS: Morphine Inj 4 MG/ML Vial IV.PUSH PRN ×5 (00:03→20:24)
[2017-12-17] MEDS: Ketorolac Inj 30 MG/ML (IVP) Vial IV.PUSH SCH ×4 (05:37→23:53)
[2017-12-17] MEDS: Sod Chloride 0.9% Inj 1,000 ML IV.CONT SCH ×3 (05:38→21:24)
[2017-12-17 07:17] LABS: Baso % (Auto) 0.5 % (0.0-2.0); Eos % (Auto) 0.2 % (0.0-4.0); Hematocrit 24.3 % (35.0-46.0); Hemoglobin 7.9 gm/dL (11.6-15.3); Lymph # (Auto) 0.9 th/mm3 (1.0-4.8); Lymph % (Auto) 10.9 % (9.0-44.0); Mean Corpuscular HGB Conc 32.6 % (32.0-36.0); Mean Corpuscular Hemoglobin 24.4 pg (27.0-34.0); Mean Platelet Volume 7.5 fL (7.0-11.0); Mono # (Auto) 0.9 th/mm3 (0.0-0.9); Mono % (Auto) 11.2 % (0.0-8.0); Neut # (Auto) 6.1 th/mm3 (1.8-7.7); Neut % (Auto) 77.2 % (16.0-70.0); Platelet Count 201 th/mm3 (150-450); Red Blood Count 3.24 mil/mm3 (4.00-5.30); Red Cell Distribution Width 18.4 % (11.6-17.2); White Blood Count 7.9 th/mm3 (4.0-11.0)
[2017-12-17 07:32] LABS: Calcium 7.9 mg/dL (8.5-10.1); Carbon Dioxide 26.9 meq/L (21.0-32.0); Potassium 3.5 meq/L (3.5-5.1)
--- NOTE | 2017-12-17 08:58 | P.PN ---
Subjective Interval history: This is a pleasant 62 y/o Female who came to ER with complaint of nausea, vomit and Diarrhea, generalized weakness, lightheaded sensation and dizziness. had C. difficile colitis 2 years ago. has Depression, Tobacco dependence, was indicated for admission by ER physician , observation The patient is been having symptomatology for the last two years she went to her PCP during the last two years with pain on the Right lower quadrant. 12/14: Seen in her bedroom discussed with nurse Miss Sierra and at this time will go for EGD and Colonoscopy by GI specialist. 12/15: Status post Colonoscopy found Cecal mass likely malignancy, recommended for laparoscopic assisted Colectomy, at this time in her room stable, no new issues. 12/16: Discussed early in am with nurse Miss Garsia patient with Hemoglobin 6.5 asked for blood transfusion of two units of PRBCs and reserve two more during the surgery. seen after procedure performed in the presence of her , continue pain medicine and following. 12/17: Seen in her bedroom in the presence of her wanted her dosages if morphine reduced and was done by General surgery no nausea, vomit or diarrhea. Physical Exam Vital signs: Vital Signs 12/16/17 12:40 12/16/17 12:45 12/16/17 13:00 Temperature 98.4 F Pulse Rate 61 64 58 L Respiratory Rate 12 12 12 Blood Pressure 110/57 L 94/50 L 129/59 L Pulse Oximetry 96 92 L 96 12/16/17 13:15 12/16/17 14:00 12/16/17 14:15 Temperature 98.1 F Pulse Rate 57 L 61 55 L Respiratory Rate 12 12 12 Blood Pressure 118/58 L 136/67 132/66 Pulse Oximetry 99 97 99 12/16/17 14:44 12/16/17 14:45 12/16/17 16:00 Temperature 97.0 F L Pulse Rate 55 L 56 L 66 Respiratory Rate 12 12 17 Blood Pressure 125/63 123/60 161/77 H Pulse Oximetry 99 99 97 12/16/17 16:08 12/16/17 18:21 12/16/17 19:23 Temperature Pulse Rate Respiratory Rate 18 20 18 Blood Pressure Pulse Oximetry 12/16/17 20:00 12/16/17 23:50 12/17/17 00:00 Temperature 97.3 F L 97.6 F Pulse Rate 66 51 L 51 L Respiratory Rate 18 18 Blood Pressure 170/77 H 161/80 H Pulse Oximetry 98 99 12/17/17 03:55 12/17/17 04:00 12/17/17 08:00 Temperature 97.9 F 97.1 F L Pulse Rate 53 L 62 65 Respiratory Rate 18 16 Blood Pressure 158/75 H 134/65 Pulse Oximetry 97 98 Intake & Output 12/16/17 12/17/17 12/17/17 18:59 06:59 18:59 Intake Total 4660 / 4660 2440 / 2440 100 / 100 Output Total 800 / 800 500 / 500 Balance 3860 / 3860 1940 / 1940 100 / 100 Weight 95.7 kg Intake: IV 1100 / 1100 2200 / 2200 100 / 100 NS Inj 1,000 ML @ 125 mls/hr IV 1000 / 1000 1999 .CONT .Q8H [facility] Rx#:[id number] Ofirmev Inj 1,000 mg In 100 ml 200 / 200 100 / 100 @ 400 mls/hr IV.SIG Q6H [facility] Rx# :[id number] Flagyl 500 MG Inj 100 ML @ 100 100 / 100 mls/hr IV.SIG [employer] PRN Rx#: [id number] Oral 760 / 760 240 / 240 Anesthesia Amount 1999 Intake (Blood Product) Amt 800 / 800 Rbc As-3 Leukoreduced Unit 400 / 400 [id number] Rbc As-3 Leukoreduced Unit 400 / 400 [id number] Output: Urine 500 / 500 Estimated Blood Loss 100 / 100 Urine Amount (Catheter) 200 / 200 500 / 500 Indwelling Urethral Catheter 200 / 200 500 / 500 Narrative: GENERAL: Obese, Well-developed patient, in no apparent distress. CARDIOVASCULAR: Regular rate and rhythm without murmurs, gallops, or rubs. RESPIRATORY: Clear to auscultation. Breath sounds equal bilaterally. No wheezes , rales, or rhonchi. GASTROINTESTINAL: Abdomen soft, clean surgical wounds. MUSCULOSKELETAL: Extremities without clubbing, cyanosis, or edema. NEURO: Alert & Oriented x4 to person, place, time, situation. Moves all ext x4 - Urinary Catheter Management Indwelling Urethral Catheter Cath placed during this visit: yes Reason for continuing: Other continuation reason Insertion date: 12/16/17 Insertion time: 10:00 Results - Labs CBC & Chem 7: 12/17/17 06:50 12/17/17 06:50 Laboratory Results - last 24 hr 12/16/17 12/16/17 12/16/17 08:00 11:00 13:05 WBC 6.9 RBC 3.35 L Hgb 7.9 L Hct 25.3 L MCV 75.6 L D MCH 23.7 L MCHC 31.3 L RDW 18.2 H Plt Count 193 MPV 6.9 L Neut % (Auto) Lymph % (Auto) [place] % (Auto) Eos % (Auto) Baso % (Auto) Neut # (Auto) Lymph # (Auto) [place] # (Auto) Eos # (Auto) Baso # (Auto) WBC Differential Differential Comment Puncture Site Art line Patient Temperature 98.6 O2 Saturation 96 ABG pH 7.31 L ABG pCO2 49 H ABG pO2 221 H ABG HCO3 24 ABG O2 Content 11.1 L ABG Base Excess -1.4 ABG Methemoglobin 1.1 Hemoglobin 7.8 L* Carboxyhemoglobin 0.2 O2 Delivery Device Ventilator Inspired O2 50 Critical Value Yes Sodium Potassium Chloride Carbon Dioxide Anion Gap BUN Creatinine Estimated GFR Random Glucose Calcium MTS Gel Crossmatch See Detail 12/17/17 12/17/17 06:50 06:50 WBC 7.9 RBC 3.24 L Hgb 7.9 L Hct 24.3 L MCV 75.0 L MCH 24.4 L MCHC 32.6 RDW 18.4 H Plt Count 201 MPV 7.5 Neut % (Auto) 77.2 H Lymph % (Auto) 10.9 [place] % (Auto) 11.2 H Eos % (Auto) 0.2 Baso % (Auto) 0.5 Neut # (Auto) 6.1 Lymph # (Auto) 0.9 L [place] # (Auto) 0.9 Eos # (Auto) 0.0 Baso # (Auto) 0.0 WBC Differential . Differential Comment Auto diff final Puncture Site Patient Temperature O2 Saturation ABG pH ABG pCO2 ABG pO2 ABG HCO3 ABG O2 Content ABG Base Excess ABG Methemoglobin Hemoglobin Carboxyhemoglobin O2 Delivery Device Inspired O2 Critical Value Sodium 144 Potassium 3.5 Chloride 110 H Carbon Dioxide 26.9 Anion Gap 7 BUN 9 Creatinine 0.73 Estimated GFR 80 L Random Glucose 95 Calcium 7.9 L MTS Gel Crossmatch - Imaging Impressions Chest X-Ray 12/16/17 00:00 CONCLUSION: Central line placed with mild subcutaneous emphysema and no pneumothorax. Previously seen nodular density in right midlung is not reproduced possibly technical. Pulmonary nodule is not excluded. - Procedures Date: 12/16/17 12:29 - Preoperative Diagnosis (1) Small bowel obstruction (2) Mass of cecum - Postoperative Diagnosis (1) Small bowel obstruction (2) Mass of cecum Date of procedure: 12/16/17 Procedure: Laparoscopic assisted right colectomy Anesthesia: GETA Surgeon: Geoffrey Nolan MD Assessment and Plan - Plan 1. Small Bowel Obstruction, had CT of Abdomen and Pelvis, with result of SBO, secondary to probable mass on Ileocecal valve, appendix unremarkable, 1.5 cm indeterminate cortical based lesion involving the left kidney cannot exclude a solid mass, found Cecal mass likely malignancy, on EGD found Hiatal hernia, Erosive gastritis, started on PPIs. Status post Laparoscopic assisted Right Colectomy 12/16/17, by Doctor Geoffrey Nolan today decreased dosages of Morphine as per General Surgery. 2. Anemia on chronic disease giving two units of PRBCs and reserved two more for surgery, Hemoglobin 7.9 3. Depression continue Home medicines once able to take by mouth. 4. Tobacco dependence strongly recommended stop smoking. 5. Obesity strongly recommended diet and exercise. DVT prophylaxis with SCDs. continue as per surgery. Code Status: Full code. Discussed Condition With: patient and nurse Miss Roland. Discharge Planning: Once cleared by General Surgery and GI specialist.
--- NOTE | 2017-12-17 10:55 | P.PNGS ---
Subjective Interval history: She feels hungry. Pain well controlled and 4mg morphine makes her sleepy. Up in chair. Physical Exam Vital signs: Vital Signs 12/16/17 12:40 12/16/17 12:45 12/16/17 13:00 Temperature 98.4 F Pulse Rate 61 64 58 L Respiratory Rate 12 12 12 Blood Pressure 110/57 L 94/50 L 129/59 L Pulse Oximetry 96 92 L 96 12/16/17 13:15 12/16/17 14:00 12/16/17 14:15 Temperature 98.1 F Pulse Rate 57 L 61 55 L Respiratory Rate 12 12 12 Blood Pressure 118/58 L 136/67 132/66 Pulse Oximetry 99 97 99 12/16/17 14:44 12/16/17 14:45 12/16/17 16:00 Temperature 97.0 F L Pulse Rate 55 L 56 L 66 Respiratory Rate 12 12 17 Blood Pressure 125/63 123/60 161/77 H Pulse Oximetry 99 99 97 12/16/17 16:08 12/16/17 18:21 12/16/17 19:23 Temperature Pulse Rate Respiratory Rate 18 20 18 Blood Pressure Pulse Oximetry 12/16/17 20:00 12/16/17 23:50 12/17/17 00:00 Temperature 97.3 F L 97.6 F Pulse Rate 66 51 L 51 L Respiratory Rate 18 18 Blood Pressure 170/77 H 161/80 H Pulse Oximetry 98 99 12/17/17 03:55 12/17/17 04:00 12/17/17 08:00 Temperature 97.9 F 97.1 F L Pulse Rate 53 L 62 65 Respiratory Rate 18 16 Blood Pressure 158/75 H 134/65 Pulse Oximetry 97 98 Intake & Output 12/16/17 12/17/17 12/17/17 18:59 06:59 18:59 Intake Total 4660 / 4660 2440 / 2440 100 / 100 Output Total 800 / 800 500 / 500 Balance 3860 / 3860 1940 / 1940 100 / 100 Weight 95.7 kg Intake: IV 1100 / 1100 2200 / 2200 100 / 100 NS Inj 1,000 ML @ 125 mls/hr IV 1000 / 1000 2000 / 2000 .CONT .Q8H [facility] Rx#:[id number] Ofirmev Inj 1,000 mg In 100 ml 200 / 200 100 / 100 @ 400 mls/hr IV.SIG Q6H [facility] Rx# :[id number] Flagyl 500 MG Inj 100 ML @ 100 100 / 100 mls/hr IV.SIG [employer] PRN Rx#: [id number] Oral 760 / 760 240 / 240 Anesthesia Amount 1999 Intake (Blood Product) Amt 800 / 800 Rbc As-3 Leukoreduced Unit 400 / 400 [id number] Rbc As-3 Leukoreduced Unit 400 / 400 [id number] Output: Urine 500 / 500 Estimated Blood Loss 100 / 100 Urine Amount (Catheter) 200 / 200 500 / 500 Indwelling Urethral Catheter 200 / 200 500 / 500 Narrative: NAD, sitting up in chair Abd: soft, inc with bandages in place - Urinary Catheter Management Indwelling Urethral Catheter Cath placed during this visit: yes Reason for continuing: Other continuation reason Insertion date: 12/16/17 Insertion time: 10:00 Assessment and Plan - Assessment (1) Small bowel obstruction Code(s): K56.609 - Unspecified intestinal obstruction, unspecified as to partial versus complete obstruction Status: Acute - Plan POD 1 lap assisted right colectomy. Stable post op. Anemia which is chronic. She received 2 U RBCs yesterday prior to surgery. Stable this am. Decrease morphine dose Soft diet D/c marte.
[2017-12-17] MEDS: Enoxaparin Inj 40 MG/0.4 ML Syringe SQ SCH (13:19)
[2017-12-18] MEDS: Morphine Inj 4 MG/ML Vial IV.PUSH PRN ×7 (01:18→23:46)
[2017-12-18] MEDS: Ketorolac Inj 30 MG/ML (IVP) Vial IV.PUSH SCH ×4 (05:08→23:46)
[2017-12-18] MEDS: Sod Chloride 0.9% Inj 1,000 ML IV.CONT SCH ×3 (05:17→23:47)
--- NOTE | 2017-12-18 10:35 | P.PN ---
Subjective Interval history: pt sitting in chair no flatus small bowel Physical Exam Vital signs: Vital Signs 12/17/17 12:00 12/17/17 15:09 12/17/17 19:55 Temperature 97.6 F 97.3 F L Pulse Rate 66 77 88 Respiratory Rate 17 17 Blood Pressure 156/70 H 153/70 H Pulse Oximetry 95 94 L 12/17/17 20:00 12/18/17 00:00 12/18/17 03:59 Temperature 97.2 F L 98.7 F Pulse Rate 78 111 H 122 H Respiratory Rate 18 18 Blood Pressure 148/84 H 151/70 H Pulse Oximetry 98 93 L 12/18/17 08:00 Temperature 98.6 F Pulse Rate 110 H Respiratory Rate 18 Blood Pressure 137/63 Pulse Oximetry 92 L Intake & Output 12/17/17 12/18/17 12/18/17 18:59 06:59 18:59 Intake Total 1200 / 1200 2000 / 2000 Output Total 600 / 600 Balance 600 / 600 2000 / 2000 Intake: IV 1200 / 1200 2000 / 2000 NS Inj 1,000 ML @ 125 mls/hr IV 1000 / 1000 2000 / 2000 .CONT .Q8H [facility] Rx#:[id number] Ofirmev Inj 1,000 mg In 100 ml 200 / 200 @ 400 mls/hr IV.SIG Q6H [facility] Rx# :[id number] Output: Urine 300 / 300 Urine Amount (Catheter) 300 / 300 Indwelling Urethral Catheter 300 / 300 Other: Date of Last Bowel Movement 12/14/17 - Constitutional no acute distress - Routine Abdominal Exam Present: soft, distended, wound Comments: wound C/D/I - Urinary Catheter Management Indwelling Urethral Catheter Cath placed during this visit: yes Reason for continuing: Acute urinary retention Insertion date: 12/16/17 Insertion time: 10:00 Results - Labs CBC & Chem 7: 12/17/17 06:50 12/17/17 06:50 Laboratory Results - last 24 hr 12/16/17 08:00 MTS Gel Crossmatch See Detail - Procedures Date: 12/16/17 12:29 - Preoperative Diagnosis (1) Small bowel obstruction (2) Mass of cecum - Postoperative Diagnosis (1) Small bowel obstruction (2) Mass of cecum Date of procedure: 12/16/17 Procedure: Laparoscopic assisted right colectomy Anesthesia: GETA Surgeon: Geoffrey Nolan MD Assessment and Plan - Assessment (1) Small bowel obstruction Code(s): K56.609 - Unspecified intestinal obstruction, unspecified as to partial versus complete obstruction Status: Acute - Plan full liquids once pass flatus will advance to soft ambulate in hallway
[2017-12-18] MEDS: Enoxaparin Inj 40 MG/0.4 ML Syringe SQ SCH (12:38)
--- NOTE | 2017-12-18 13:42 | P.PN ---
Subjective Interval history: This is a pleasant 62 y/o Female who came to ER with complaint of nausea, vomit and Diarrhea, generalized weakness, lightheaded sensation and dizziness. had C. difficile colitis 2 years ago. has Depression, Tobacco dependence, was indicated for admission by ER physician , observation The patient is been having symptomatology for the last two years she went to her PCP during the last two years with pain on the Right lower quadrant. 12/14: Seen in her bedroom discussed with nurse Miss Sierra and at this time will go for EGD and Colonoscopy by GI specialist. 12/15: Status post Colonoscopy found Cecal mass likely malignancy, recommended for laparoscopic assisted Colectomy, at this time in her room stable, no new issues. 12/16: Discussed early in am with nurse Sun patient with Hemoglobin 6.5 asked for blood transfusion of two units of PRBCs and reserve two more during the surgery. seen after procedure performed in the presence of her , continue pain medicine and following. 12/17: Seen in her bedroom in the presence of her wanted her dosages if morphine reduced and was done by General surgery. 12/18: Distended in her bedroom, not passing gas, recommended to continue activity, needs to walk, seen walking in the aisle. Physical Exam Vital signs: Vital Signs 12/17/17 15:09 12/17/17 19:55 12/17/17 20:00 Temperature 97.3 F L 97.2 F L Pulse Rate 77 88 78 Respiratory Rate 17 18 Blood Pressure 153/70 H 148/84 H Pulse Oximetry 94 L 98 12/18/17 00:00 12/18/17 03:59 12/18/17 08:00 Temperature 98.7 F 98.6 F Pulse Rate 111 H 122 H 110 H Respiratory Rate 18 18 Blood Pressure 151/70 H 137/63 Pulse Oximetry 93 L 92 L 12/18/17 09:00 12/18/17 12:00 Temperature 98.5 F Pulse Rate 110 H 108 H Respiratory Rate 17 Blood Pressure 166/76 H Pulse Oximetry 94 L Intake & Output 12/17/17 12/18/17 12/18/17 18:59 06:59 18:59 Intake Total 1200 / 1200 2000 / 2000 1000 / 1000 Output Total 600 / 600 Balance 600 / 600 2000 / 2000 1000 / 1000 Intake: IV 1200 / 1200 2000 / 2000 1000 / 1000 NS Inj 1,000 ML @ 125 mls/hr IV 1000 / 1000 2000 / 2000 1000 / 1000 .CONT .Q8H [facility] Rx#:[id number] Ofirmev Inj 1,000 mg In 100 ml 200 / 200 @ 400 mls/hr IV.SIG Q6H [facility] Rx# :[id number] Output: Urine 300 / 300 Urine Amount (Catheter) 300 / 300 Indwelling Urethral Catheter 300 / 300 Other: Date of Last Bowel Movement 12/14/17 12/14/17 Narrative: GENERAL: Obese, Well-developed patient, in no apparent distress. CARDIOVASCULAR: Regular rate and rhythm without murmurs, gallops, or rubs. RESPIRATORY: Clear to auscultation. Breath sounds equal bilaterally. No wheezes , rales, or rhonchi. GASTROINTESTINAL: Abdomen soft, clean surgical wounds. distended abdomen MUSCULOSKELETAL: Extremities without clubbing, cyanosis, or edema. NEURO: Alert & Oriented x4 to person, place, time, situation. Moves all ext x4 - Urinary Catheter Management Indwelling Urethral Catheter Cath placed during this visit: yes Reason for continuing: Acute urinary retention Insertion date: 12/16/17 Insertion time: 10:00 Results - Labs CBC & Chem 7: 12/17/17 06:50 12/17/17 06:50 Laboratory Results - last 24 hr 12/16/17 08:00 MTS Gel Crossmatch See Detail - Procedures Date: 12/16/17 12:29 - Preoperative Diagnosis (1) Small bowel obstruction (2) Mass of cecum - Postoperative Diagnosis (1) Small bowel obstruction (2) Mass of cecum Date of procedure: 12/16/17 Procedure: Laparoscopic assisted right colectomy Anesthesia: GETA Surgeon: Geoffrey Nolan MD Assessment and Plan - Plan 1. Small Bowel Obstruction, had CT of Abdomen and Pelvis, with result of SBO, secondary to probable mass on Ileocecal valve, appendix unremarkable, 1.5 cm indeterminate cortical based lesion involving the left kidney cannot exclude a solid mass, found Cecal mass likely malignancy, on EGD found Hiatal hernia, Erosive gastritis, started on PPIs. Status post Laparoscopic assisted Right Colectomy 12/16/17, by Doctor Geoffrey Nolan today decreased dosages of Morphine as per General Surgery. distended strongly encourage to continue activity. 2. Anemia on chronic disease giving two units of PRBCs and reserved two more for surgery, Hemoglobin 7.9 3. Depression continue Home medicines once able to take by mouth. 4. Tobacco dependence strongly recommended stop smoking. 5. Obesity strongly recommended diet and exercise. 6. Electrolyte derangement replacing potassium try to keep Magnesium in 2 or over and Potassium in 4 or over following in am tomorrow. DVT prophylaxis with Lovenox Encourage ambulation. Code Status: Full Code. Discussed Condition With: Patient and nurse Miss Roland. Discharge Planning: Once cleared by General Surgery and GI specialist.
[2017-12-18 15:21] LABS: Magnesium 1.9 mg/dL (1.5-2.5); Phosphorus 1.6 mg/dL (2.5-4.9); Potassium 3.1 meq/L (3.5-5.1)
[2017-12-18] MEDS: Potassium Chlor 10 mEq Premix 10 MEQ/100 ML PIGGYBACK IV.SIG SCH ×3 (15:33→18:32)
--- NOTE | 2017-12-18 16:13 | MB ---
cc: Corona Bonilla MD DATE: 12/18/2017 ATTENDING PHYSICIAN: Dr. Gonsalves. REASON FOR CONSULTATION: Oncology consulted to render opinion on patient with a newly diagnosed colon cancer. HISTORY OF PRESENT ILLNESS: The patient is a 62-year-old female who presented to the hospital complaining of nausea, vomiting, diarrhea and abdominal pain. The patient reportedly had been having right upper quadrant pain on and off for at least a year. She never had a colonoscopy. Her symptoms are progressively getting worse. She has increased weakness and dizziness. On presentation, she was found to be anemic. She had a CT scan which showed a possible mass in the ileocecal area with a small-bowel obstruction. She had a colonoscopy subsequently which showed a cecal mass with multiple colon polyps. Biopsy showed moderately differentiated adenocarcinoma. She underwent a laparoscopic-assisted right colectomy 12/16/2017. A large cecal mass was noted with inflammatory changes. Pathology is still pending at this time. She is slowly recovering from surgery. She denies any fever or chills. She denies any recent weight loss. She has no chest pain or palpitations. She has no shortness of breath or cough. She denies any melena, hematochezia. No dysuria, hematuria. PAST MEDICAL HISTORY: 1. Clostridium difficile colitis about 2 years ago. 2. Depression. PAST SURGICAL HISTORY: Cholecystectomy, left knee arthroscopic surgery twice, excision of squamous cell carcinoma of the skin. FAMILY HISTORY: Mother had breast cancer in her 70s. She has 2 sisters and a brother. Only 1 sister is alive. She has 2 sons and 1 daughter, all healthy. SOCIAL HISTORY: Smoker a pack a day for about 20 years. Recently switched to E-cigarettes. Denies any alcohol use. 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 ALLERGIES: PENICILLIN. CURRENT MEDICATIONS: 1. Lovenox. 2. Toradol. 3. Nicotine patch. REVIEW OF SYSTEMS: As above. CONSTITUTIONAL: As above. EYES: Negative. ENT: Negative. CARDIOVASCULAR: No chest pressure or palpitation. RESPIRATORY: Denies shortness of breath, cough. GASTROINTESTINAL: As above. GENITOURINARY: Negative. MUSCULOSKELETAL: Negative. ENDOCRINE: Negative. HEMATOLOGIC: Negative. PSYCHIATRIC: Negative. DERMATOLOGIC: Negative. NEUROLOGIC: Negative. PHYSICAL EXAMINATION: VITAL SIGNS: Temperature 98.5, blood pressure 166/76, O2 saturation 94%. GENERAL: She is alert, oriented x3, no acute distress. HEENT: Atraumatic, normocephalic. Pupils are equal, round, reactive to light. Extraocular muscles intact. No scleral icterus. Oropharynx dry mucosa. No lesion. No thrush. No mucositis. NECK: No thyromegaly or palpable mass. LYMPHATIC: No palpable cervical, clavicular, axillary or inguinal lymph nodes. CARDIOVASCULAR: Regular S1, S2. No murmur. LUNGS: Clear to auscultation without wheezing or rhonchi. ABDOMEN: Dressing is dry, a little sore in the right lower quadrant area. Bowel sounds hypoactive. EXTREMITIES: No cyanosis, clubbing or edema. SKIN: No rash. NEUROLOGIC: Nonfocal. LABORATORY DATA: Hemoglobin 7.9, WBC 7.9, platelet of 201, creatinine 0.73. CEA 1.0. ASSESSMENT AND PLAN: 1. Adenocarcinoma. She has had right lower quadrant soreness for at least a year. She never had a colonoscopy. She presented with nausea, vomiting, diarrhea. She noted to have small-bowel obstruction. CT showed a possible mass in the ileocecal valve area. She had a colonoscopy which showed a cecal mass and several other colon polyps. A biopsy showed moderately differentiated adenocarcinoma. There was also a polyp at the descending colon showing severe glandular dysplasia. She underwent laparoscopic-assisted right colectomy 12/16/2017. A large cecal mass was noted with inflammatory changes. Pathology is still pending. CEA is not elevated at 1. I had an extensive discussion with the patient and her at the bedside. We went over the diagnosis and management plan. At this time, we will need to wait for the final pathology to determine the pathologic staging. If there is lymph node involvement, she will need further staging workup with a PET CT scan. She also will need adjuvant chemotherapy if disease is localized. If pathology shows early stage colon cancer with no high risk feature, she possibly could be monitored without adjuvant chemotherapy. The patient had some questions today which were answered. 2. Anemia, most consistent with iron deficiency anemia. She has microcytosis. I think she has occult gastrointestinal bleed due to the colon cancer. She had received 2 units of packed red blood cell transfusion. We will check iron study. Plan to give her Venofer for the iron deficiency. 3. Helicobacter pylori infection. She had an upper endoscopy, which showed esophagitis, gastritis, and duodenitis. Pathology positive for H. pylori. Gastroenterology is following. 4. Left kidney mass noted incidentally on CT scan. There is a 1.5 cm indeterminate mass in the left kidney. Can consider getting ultrasound or MRI when the patient is stable for further evaluation. RECOMMENDATIONS: 1. Extensive discussion with the patient and her . 2. Await pathology. 3. Further staging and treatment recommendations will depend on final pathology. 4. Check iron studies and plan to give her Venofer. 5. She will need an ultrasound, MRI of the kidney to further evaluate left kidney lesion when stable. Thank you, Dr. Gonsalves, for asking me to see this patient. MD ALMA Ansari/ , 03:12 PM , 03:26 PM LESLIE
[2017-12-19] MEDS: Morphine Inj 4 MG/ML Vial IV.PUSH PRN ×4 (05:19→20:51)
[2017-12-19] MEDS: Ketorolac Inj 30 MG/ML (IVP) Vial IV.PUSH SCH ×3 (05:20→17:05)
[2017-12-19] MEDS: Sod Chloride 0.9% Inj 1,000 ML IV.CONT SCH ×2 (05:42→13:23)
[2017-12-19 07:30] LABS: Anion Gap 9 meq/L (5-15); Blood Urea Nitrogen 7 mg/dL (7-18); Calcium 7.9 mg/dL (8.5-10.1); Carbon Dioxide 26.3 meq/L (21.0-32.0); Chloride 108 meq/L (98-107); Glomerular Filtration Rate Greater Than 89 mL/min (>89); Glucose,Random 75 mg/dL (74-106); Magnesium 1.9 mg/dL (1.5-2.5); Potassium 3.2 meq/L (3.5-5.1); Sodium 143 meq/L (136-145)
[2017-12-19 07:31] LABS: Iron 9 mcg/dL (50-170)
[2017-12-19 07:36] LABS: % Iron Saturation 3.9 % (20-50); Ferritin 54 ng/mL (8-252); Phosphorus 2.2 mg/dL (2.5-4.9); Total Iron Binding Capacity 228 mcg/dL (250-450)
[2017-12-19] MEDS: Enoxaparin Inj 40 MG/0.4 ML Syringe SQ SCH (11:36)
--- NOTE | 2017-12-19 11:47 | P.PN ---
Subjective Interval history: This is a pleasant 62 y/o Female who came to ER with complaint of nausea, vomit and Diarrhea, generalized weakness, lightheaded sensation and dizziness. had C. difficile colitis 2 years ago. has Depression, Tobacco dependence, was indicated for admission by ER physician , observation The patient is been having symptomatology for the last two years she went to her PCP during the last two years with pain on the Right lower quadrant. 12/14: Seen in her bedroom discussed with nurse Miss Mastersllian and at this time will go for EGD and Colonoscopy by GI specialist. 12/15: Status post Colonoscopy found Cecal mass likely malignancy, recommended for laparoscopic assisted Colectomy, at this time in her room stable, no new issues. 12/16: Discussed early in am with nurse Sun patient with Hemoglobin 6.5 asked for blood transfusion of two units of PRBCs and reserve two more during the surgery. seen after procedure performed in the presence of her , continue pain medicine and following. 12/17: Seen in her bedroom in the presence of her wanted her dosages if morphine reduced and was done by General surgery. 12/18: Distended in her bedroom, not passing gas, recommended to continue activity, needs to walk, seen walking in the aisle. 12/19: Seen in her bedroom, stable, not passing gas, walking twice today, abdominal pain continue POD #3, General Surgery following. some Nausea, no vomit. Physical Exam Vital signs: Vital Signs 12/18/17 12:00 12/18/17 15:24 12/18/17 20:00 Temperature 98.5 F 97.8 F 98 F Pulse Rate 108 H 98 H 112 H Respiratory Rate 17 16 20 Blood Pressure 166/76 H 133/61 153/76 H Pulse Oximetry 94 L 94 L 91 L 12/19/17 00:00 12/19/17 04:00 12/19/17 08:00 Temperature 98.8 F 98.1 F 98.3 F Pulse Rate 98 H 95 H 99 H Respiratory Rate 20 20 17 Blood Pressure 152/78 H 175/80 H 128/66 Pulse Oximetry 90 L 96 90 L 12/19/17 09:00 12/19/17 09:57 Temperature Pulse Rate 100 H Respiratory Rate 16 Blood Pressure Pulse Oximetry Intake & Output 12/18/17 12/19/17 12/19/17 18:59 06:59 18:59 Intake Total 1999 Balance 1999 Weight 99.4 kg Intake: IV 1200 / 1200 2099 NS Inj 1,000 ML @ 125 mls/hr IV 1000 / 1000 1999 .CONT .Q8H CAT Rx#:[id number] KCl 10 mEq Premix Inj 10 meq In 200 / 200 100 / 100 100 ml @ 100 mls/hr IV.SIG Q1H CAT Rx#:[id number] Oral 800 / 800 Other: Date of Last Bowel Movement 12/18/17 # Bowel Movements 3 Narrative: GENERAL: Obese, Well-developed patient, in no apparent distress. CARDIOVASCULAR: Regular rate and rhythm without murmurs, gallops, or rubs. RESPIRATORY: Clear to auscultation. Breath sounds equal bilaterally. No wheezes , rales, or rhonchi. GASTROINTESTINAL: Abdomen soft, clean surgical wounds. distended abdomen MUSCULOSKELETAL: Extremities without clubbing, cyanosis, or edema. NEURO: Alert & Oriented x4 to person, place, time, situation. Moves all ext x4 - Urinary Catheter Management Indwelling Urethral Catheter Cath placed during this visit: yes Reason for continuing: Acute urinary retention Insertion date: 12/16/17 Insertion time: 10:00 Results - Labs CBC & Chem 7: 12/17/17 06:50 12/19/17 05:20 Laboratory Results - last 24 hr 12/18/17 12/19/17 14:15 05:20 Sodium 143 Potassium 3.1 L 3.2 L Chloride 108 H Carbon Dioxide 26.3 Anion Gap 9 BUN 7 Creatinine 0.63 Estimated GFR Greater than 89 Random Glucose 75 Calcium 7.9 L Phosphorus 1.6 L 2.2 L Magnesium 1.9 1.9 Iron 9 L TIBC 228 L % Saturation 3.9 L Ferritin 54 - Procedures Date: 12/16/17 12:29 - Preoperative Diagnosis (1) Small bowel obstruction (2) Mass of cecum - Postoperative Diagnosis (1) Small bowel obstruction (2) Mass of cecum Date of procedure: 12/16/17 Procedure: Laparoscopic assisted right colectomy Anesthesia: GETA Surgeon: Geoffrey Nolan MD Assessment and Plan - Plan 1. Small Bowel Obstruction, had CT of Abdomen and Pelvis, with result of SBO, secondary to probable mass on Ileocecal valve, appendix unremarkable, 1.5 cm indeterminate cortical based lesion involving the left kidney cannot exclude a solid mass, found Cecal mass likely malignancy, on EGD found Hiatal hernia, Erosive gastritis, started on PPIs. Status post Laparoscopic assisted Right Colectomy 12/16/17, by Doctor Geoffrey Nolan today decreased dosages of Morphine as per General Surgery. distended strongly encourage to continue activity. not yet passing gas. 2. Anemia on chronic disease giving two units of PRBCs and reserved two more for surgery, Hemoglobin 7.9 3. Depression continue Home medicines once able to take by mouth. 4. Tobacco dependence strongly recommended stop smoking. 5. Obesity strongly recommended diet and exercise. 6. Electrolyte derangement continue replacement giving 40 meq of Potassium IV, Magnesium 1 gram and Sodium Phosphate 15 mmol. DVT prophylaxis with Lovenox Encourage ambulation. Code Status: Full Code. Discussed Condition With: Patient and Nurse Kadie. Discharge Planning: Once cleared by General Surgery and GI specialist.
--- NOTE | 2017-12-19 13:37 | P.PNGS ---
Subjective Interval history: She feels poorly today and c/o nausea, pain, and "indigestion". Physical Exam Vital signs: Vital Signs 12/18/17 15:24 12/18/17 20:00 12/19/17 00:00 Temperature 97.8 F 98 F 98.8 F Pulse Rate 98 H 112 H 98 H Respiratory Rate 16 20 20 Blood Pressure 133/61 153/76 H 152/78 H Pulse Oximetry 94 L 91 L 90 L 12/19/17 04:00 12/19/17 08:00 12/19/17 09:00 Temperature 98.1 F 98.3 F Pulse Rate 95 H 99 H 100 H Respiratory Rate 20 17 Blood Pressure 175/80 H 128/66 Pulse Oximetry 96 90 L 12/19/17 09:57 12/19/17 12:00 12/19/17 12:35 Temperature 97.6 F Pulse Rate 95 H 97 H Respiratory Rate 16 17 Blood Pressure 142/80 H Pulse Oximetry 93 L 12/19/17 12:46 Temperature Pulse Rate Respiratory Rate 16 Blood Pressure Pulse Oximetry Intake & Output 12/18/17 12/19/17 12/19/17 18:59 06:59 18:59 Intake Total 1999 / 1999 2100 / 2099 1000 / 1000 Balance 1999 / 2099 1000 / 1000 Weight 99.4 kg Intake: IV 1200 / 1200 2099 / 2099 1000 / 1000 NS Inj 1,000 ML @ 125 mls/hr IV 1000 / 1000 2000 / 2000 1000 / 1000 .CONT .Q8H CAT Rx#:[id number] KCl 10 mEq Premix Inj 10 meq In 200 / 200 100 / 100 100 ml @ 100 mls/hr IV.SIG Q1H CAT Rx#:[id number] Oral 800 / 800 Other: Date of Last Bowel Movement 12/18/17 # Bowel Movements 3 Narrative: Upset, tearful Abd: soft, moderate distention, bandage c/d/i - Urinary Catheter Management Indwelling Urethral Catheter Cath placed during this visit: yes Reason for continuing: Acute urinary retention Insertion date: 12/16/17 Insertion time: 10:00 Assessment and Plan - Assessment (1) Small bowel obstruction Code(s): K56.609 - Unspecified intestinal obstruction, unspecified as to partial versus complete obstruction Status: Acute - Plan POD 3 lap assisted right colectomy. Stable post op. Anemia which is chronic. She received 2 U RBC prior to surgery. Nausea and indigestion today. Start norco. Reglan, protonix, tums PRN. Cont fulls.
--- NOTE | 2017-12-19 14:49 | P.PNONC ---
Subjective Interval history: Afebrile. Complains of indigestion and abdominal pain. She was able to eat a little tomato soup prior to having indigestion. Objective Vital Signs/Intake & Output: Vital Signs 12/18/17 15:24 12/18/17 20:00 12/19/17 00:00 Temperature 97.8 F 98 F 98.8 F Pulse Rate 98 H 112 H 98 H Respiratory Rate 16 20 20 Blood Pressure 133/61 153/76 H 152/78 H Pulse Oximetry 94 L 91 L 90 L 12/19/17 04:00 12/19/17 08:00 12/19/17 09:00 Temperature 98.1 F 98.3 F Pulse Rate 95 H 99 H 100 H Respiratory Rate 20 17 Blood Pressure 175/80 H 128/66 Pulse Oximetry 96 90 L 12/19/17 09:57 12/19/17 12:00 12/19/17 12:35 Temperature 97.6 F Pulse Rate 95 H 97 H Respiratory Rate 16 17 Blood Pressure 142/80 H Pulse Oximetry 93 L 12/19/17 12:46 12/19/17 13:47 Temperature Pulse Rate Respiratory Rate 16 17 Blood Pressure Pulse Oximetry Intake & Output 12/18/17 12/19/17 12/19/17 18:59 06:59 18:59 Intake Total 1999 / 2099 1000 / 1000 Balance 1999 / 2099 1000 / 1000 Weight 99.4 kg Intake: IV 1200 / 1200 2099 / 2099 1000 / 1000 NS Inj 1,000 ML @ 125 mls/hr IV 1000 / 1000 2000 / 1999 1000 / 1000 .CONT .Q8H CAT Rx#:[id number] KCl 10 mEq Premix Inj 10 meq In 200 / 200 100 / 100 100 ml @ 100 mls/hr IV.SIG Q1H CAT Rx#:[id number] Oral 800 / 800 Other: Date of Last Bowel Movement 12/18/17 # Bowel Movements 3 Result Diagrams: 12/19/17 16:30 12/19/17 05:20 Laboratory Results: Laboratory Results - last 24 hr 12/18/17 12/19/17 14:15 05:20 Sodium 143 Potassium 3.1 L 3.2 L Chloride 108 H Carbon Dioxide 26.3 Anion Gap 9 BUN 7 Creatinine 0.63 Estimated GFR Greater than 89 Random Glucose 75 Calcium 7.9 L Phosphorus 1.6 L 2.2 L Magnesium 1.9 1.9 Iron 9 L TIBC 228 L % Saturation 3.9 L Ferritin 54 Medications: Active Medications Generic Name Dose Route Start Last Admin Trade Name Michael PRN Reason Stop Dose Admin Enoxaparin Sodium 40 mg 12/17/17 12:00 12/19/17 11:36 Lovenox Inj SQ 40 mg Q24H CAT Administration Sodium Chloride 1,000 mls @ 125 mls/hr 12/13/17 06:15 12/19/17 13:23 Ns Inj IV.CONT 75 mls/hr .Q8H CAT Administration Metronidazole/Sodium Chloride 100 mls @ 100 mls/hr 12/16/17 07:42 12/16/17 10 :42 Flagyl 500 Mg Inj IV.SIG 12/20/17 07:41 Infused [employer]OTONIC [employer]ORATORY TECHNICIAN PRN Infusion PHOTONIC LABORATORY TECHNICIAN Ketorolac Tromethamine 30 mg 12/16/17 18:00 12/19/17 11:36 Toradol Inj IV.PUSH 12/21/17 17:59 30 mg Q6H CAT Administration Morphine Sulfate 2 mg 12/17/17 10:53 12/19/17 13:24 Morphine Inj IV.PUSH 2 mg Q3H PRN Administration BREAKTHROUGH PAIN Nicotine 1 patch 12/13/17 16:30 12/19/17 09:22 Habitrol 14 Mg Patch.24 Hr T-DERMAL 1 patch DAILY CAT Administration Ondansetron HCl 4 mg 12/16/17 12:38 12/19/17 11:37 Zofran Odt PO 4 mg Q6H PRN Administration NAUSEA OR VOMITING Ondansetron HCl 4 mg 12/16/17 12:39 12/18/17 08:56 Zofran Inj IV.PUSH 4 mg Q6H PRN Administration NAUSEA OR VOMITING Patch Removal 1 each 12/13/17 17:00 12/19/17 09:22 Remove Old Patch T-DERMAL 1 each DAILY CAT Administration Objective Remarks: GENERAL: Ill-appearing female patient, in no acute distress. SKIN: Warm and dry. HEAD: Normocephalic. EYES: No scleral icterus. No injection or drainage. NECK: Supple, trachea midline. CARDIOVASCULAR: Regular rate and rhythm without murmurs. RESPIRATORY: Posterior breath sounds clear, equal bilaterally. No accessory muscle use. GASTROINTESTINAL: Abdomen soft, non-tender, nondistended. EXTREMITIES: No cyanosis, or edema. MUSCULOSKELETAL: Adequate muscle tone. NEUROLOGICAL: No obvious focal deficit. Awake, alert, and oriented x3. PSYCHIATRIC: Appropriate mood and affect; insight and judgment normal. Assessment/Plan - Plan This is a pleasant 62-year-old female with newly diagnosed colon cancer status post right colectomy on 12/16/2017. She is also been noted to have iron deficiency anemia. Pathology is pending awaiting this for staging. Plan: 1. Colon cancer, awaiting final pathology for staging purposes. Patient may need a outpatient PET scan if there appears to be lymph node involvement. 2. Anemia, likely iron deficient, we will transfuse venifar tomorrow. 3. Continue supportive care. - Attending Statement The exam, history, and the medical decision-making described in the above note were completed with the assistance of the mid-level provider. I reviewed and agree with the findings presented. I attest that I had a [id number] encounter with the patient on the same day, and personally performed and documented my assessment and findings in the medical record. +abdominal soreness. No BM yet. Path pending. Has anemia due to iron deficiency. Will give her venofer tomorrow. Continue supportive care.
[2017-12-19] MEDS ORDERED: Mag Sulf 1 gm/100 ml Premix 100 ML IV.SIG ONE (15:00)
[2017-12-19] MEDS: Pantoprazole Inj 40 MG Vial IV.PUSH SCH (15:01)
[2017-12-19] MEDS ORDERED: Sodium Phosphate Inj 15 MMOL in Sodium Chlor 0.9% Inj 150 ML IV.SIG ONE (16:00)
[2017-12-19 16:52] LABS: Baso % (Auto) 0.6 % (0.0-2.0); Eos # (Auto) 0.2 th/mm3 (0.0-0.4); Eos % (Auto) 3.6 % (0.0-4.0); Hemoglobin 7.1 gm/dL (11.6-15.3); Lymph # (Auto) 0.8 th/mm3 (1.0-4.8); Lymph % (Auto) 16.1 % (9.0-44.0); Mean Corpuscular Hemoglobin 23.2 pg (27.0-34.0); Mean Corpuscular Volume 75.7 fL (80.0-100.0); Mean Platelet Volume 7.4 fL (7.0-11.0); Mono # (Auto) 0.6 th/mm3 (0.0-0.9); Mono % (Auto) 11.9 % (0.0-8.0); Neut # (Auto) 3.3 th/mm3 (1.8-7.7); Neut % (Auto) 67.8 % (16.0-70.0); Platelet Count 170 th/mm3 (150-450); Red Blood Count 3.05 mil/mm3 (4.00-5.30); Red Cell Distribution Width 19.2 % (11.6-17.2); White Blood Count 4.9 th/mm3 (4.0-11.0)
[2017-12-19 16:53] LABS: Mean Corpuscular HGB Conc 30.6 % (32.0-36.0)
[2017-12-19] MEDS: Potassium Chlor 20 mEq Premix 20 MEQ/100 ML PIGGYBACK IV.SIG SCH ×2 (16:53→18:31)
[2017-12-20] MEDS: Ketorolac Inj 30 MG/ML (IVP) Vial IV.PUSH SCH ×4 (00:07→17:51)
[2017-12-20] MEDS: Sod Chloride 0.9% Inj 1,000 ML IV.CONT SCH ×4 (00:08→21:53)
[2017-12-20 07:05] LABS: Baso % (Auto) 0.6 % (0.0-2.0); Eos # (Auto) 0.2 th/mm3 (0.0-0.4); Eos % (Auto) 4.1 % (0.0-4.0); Hematocrit 23.1 % (35.0-46.0); Hemoglobin 7.2 gm/dL (11.6-15.3); Lymph # (Auto) 0.7 th/mm3 (1.0-4.8); Lymph % (Auto) 17.3 % (9.0-44.0); Mean Corpuscular HGB Conc 31.1 % (32.0-36.0); Mean Corpuscular Hemoglobin 23.5 pg (27.0-34.0); Mean Corpuscular Volume 75.5 fL (80.0-100.0); Mean Platelet Volume 7.3 fL (7.0-11.0); Mono # (Auto) 0.6 th/mm3 (0.0-0.9); Mono % (Auto) 15.1 % (0.0-8.0); Neut # (Auto) 2.4 th/mm3 (1.8-7.7); Neut % (Auto) 62.9 % (16.0-70.0); Platelet Count 181 th/mm3 (150-450); Red Blood Count 3.06 mil/mm3 (4.00-5.30); Red Cell Distribution Width 19.2 % (11.6-17.2); White Blood Count 3.8 th/mm3 (4.0-11.0)
[2017-12-20 07:26] LABS: Anion Gap 8 meq/L (5-15); Blood Urea Nitrogen 6 mg/dL (7-18); Calcium 7.9 mg/dL (8.5-10.1); Carbon Dioxide 25.7 meq/L (21.0-32.0); Chloride 109 meq/L (98-107); Glomerular Filtration Rate Greater Than 89 mL/min (>89); Glucose,Random 79 mg/dL (74-106); Potassium 3.5 meq/L (3.5-5.1); Sodium 143 meq/L (136-145)
--- NOTE | 2017-12-20 10:48 | P.PNONC ---
Subjective Interval history: Afebrile Patient reports she had a loose bowel movement this morning Abdominal pain mostly controlled with current pain regimen No longer having indigestion Objective Vital Signs/Intake & Output: Vital Signs 12/19/17 12:00 12/19/17 12:35 12/19/17 12:46 Temperature 97.6 F Pulse Rate 95 H 97 H Respiratory Rate 17 16 Blood Pressure 142/80 H Pulse Oximetry 93 L 12/19/17 13:47 12/19/17 16:00 12/19/17 16:13 Temperature 97.9 F Pulse Rate 90 Respiratory Rate 17 17 16 Blood Pressure 169/77 H Pulse Oximetry 93 L 12/19/17 16:54 12/19/17 17:51 12/19/17 20:00 Temperature 97.7 F Pulse Rate 87 91 H Respiratory Rate 16 20 Blood Pressure 162/77 H Pulse Oximetry 94 L 12/20/17 00:00 12/20/17 04:00 12/20/17 08:00 Temperature 98.4 F 97.9 F 97.6 F Pulse Rate 94 H 88 100 H Respiratory Rate 20 18 17 Blood Pressure 166/80 H 143/75 H 152/73 H Pulse Oximetry 93 L 93 L 91 L Intake & Output 12/19/17 12/20/17 12/20/17 18:59 06:59 18:59 Intake Total 1200 / 1200 1615 / 1615 Balance 1200 / 1200 1615 / 1615 Weight 218 lb 7.649 oz Intake: IV 1200 / 1200 1255 / 1255 NS Inj 1,000 ML @ 125 mls/hr IV 1000 / 1000 1000 / 1000 .CONT .Q8H CAT Rx#:[id number] Magnesium Sulfate 1 gm/D5W 100 100 / 100 ml Premix 100 ML @ 100 mls/hr IV.SIG ONCE ONE Rx#:[id number] KCl 20 mEq Premix Inj 20 meq In 100 / 100 100 / 100 100 ml @ 50 mls/hr IV.SIG Q2H CAT Rx#:[id number] Oral 360 / 360 Other: # Voids 5 1 Result Diagrams: 12/20/17 06:50 12/20/17 06:50 Laboratory Results: Laboratory Results - last 24 hr 12/19/17 12/20/17 12/20/17 16:30 06:50 06:50 WBC 4.9 3.8 L RBC 3.05 L 3.06 L Hgb 7.1 L 7.2 L Hct 23.0 L 23.1 L MCV 75.7 L 75.5 L MCH 23.2 L 23.5 L MCHC 30.6 L 31.1 L RDW 19.2 H 19.2 H Plt Count 170 181 MPV 7.4 7.3 Neut % (Auto) 67.8 62.9 Lymph % (Auto) 16.1 17.3 [place] % (Auto) 11.9 H 15.1 H Eos % (Auto) 3.6 4.1 H Baso % (Auto) 0.6 0.6 Neut # (Auto) 3.3 2.4 Lymph # (Auto) 0.8 L 0.7 L [place] # (Auto) 0.6 0.6 Eos # (Auto) 0.2 0.2 Baso # (Auto) 0.0 0.0 WBC Differential . . Differential Comment Auto diff final Auto diff final Sodium 143 Potassium 3.5 Chloride 109 H Carbon Dioxide 25.7 Anion Gap 8 BUN 6 L Creatinine 0.66 Estimated GFR Greater than 89 Random Glucose 79 Calcium 7.9 L Medications: Active Medications Generic Name Dose Route Start Last Admin Trade Name Freq PRN Reason Stop Dose Admin Hydrocodone Bitart/Acetaminophen 1 tab 12/19/17 13:34 12/20/17 05:25 [place] 7.5/325 PO 1 tab Q4H PRN Administration PAIN SCALE 4 TO 10 Enoxaparin Sodium 40 mg 12/17/17 12:00 12/19/17 11:36 Lovenox Inj SQ 40 mg Q24H CAT Administration Sodium Chloride 1,000 mls @ 125 mls/hr 12/13/17 06:15 12/20/17 06:51 Ns Inj IV.CONT Not Given .Q8H CAT Ketorolac Tromethamine 30 mg 12/16/17 18:00 12/20/17 05:19 Toradol Inj IV.PUSH 12/21/17 17:59 30 mg Q6H CAT Administration Metoclopramide HCl 10 mg 12/19/17 15:00 12/20/17 05:18 Reglan Inj IV.PUSH 10 mg Q8HR CAT Administration Protocol Morphine Sulfate 2 mg 12/17/17 10:53 12/19/17 20:51 Morphine Inj IV.PUSH 2 mg Q3H PRN Administration BREAKTHROUGH PAIN Nicotine 1 patch 12/13/17 16:30 12/20/17 08:21 Habitrol 14 Mg Patch.24 Hr T-DERMAL 1 patch DAILY CAT Administration Ondansetron HCl 4 mg 12/16/17 12:38 12/19/17 11:37 Zofran Odt PO 4 mg Q6H PRN Administration NAUSEA OR VOMITING Ondansetron HCl 4 mg 12/16/17 12:39 12/18/17 08:56 Zofran Inj IV.PUSH 4 mg Q6H PRN Administration NAUSEA OR VOMITING Pantoprazole Sodium 40 mg 12/19/17 15:00 12/19/17 15:01 Protonix Inj IV.PUSH 40 mg Q24H CAT Administration Patch Removal 1 each 12/13/17 17:00 12/20/17 08:22 Remove Old Patch T-DERMAL 1 each DAILY CAT Administration Objective Remarks: GENERAL: Older female resting in bed with eyes closed. She wakens easily to verbal stimuli. SKIN: Warm and dry. HEAD: Normocephalic. EYES: No scleral icterus. No injection or drainage. NECK: Supple, trachea midline. CARDIOVASCULAR: Regular rate and rhythm without murmurs. RESPIRATORY: Posterior breath sounds clear, equal bilaterally. No accessory muscle use. GASTROINTESTINAL: Abdomen protuberant. Dressing to right lower quadrant with scant drainage noted. EXTREMITIES: No cyanosis, or edema. MUSCULOSKELETAL: Adequate muscle tone. NEUROLOGICAL: No obvious focal deficit. Awake, alert, and oriented x3. Assessment/Plan - Plan This is a pleasant 62-year-old female with newly diagnosed colon cancer status post right colectomy on 12/16/2017. She is also been noted to have iron deficiency anemia. Pathology is pending awaiting this for staging. Plan: 1. Await pathology for staging. Patient may need a outpatient PET scan if there appears to be lymph node involvement. 2. Transfuse iron sucrose for iron deficiency anemia. 3. Supportive care - Attending Statement The exam, history, and the medical decision-making described in the above note were completed with the assistance of the mid-level provider. I reviewed and agree with the findings presented. I attest that I had a [id number] encounter with the patient on the same day, and personally performed and documented my assessment and findings in the medical record. Patient has no bowel movement yet. Pathology is still pending. We will give her Venofer infusion for iron deficiency. Continue supportive care.
[2017-12-20] MEDS: Enoxaparin Inj 40 MG/0.4 ML Syringe SQ SCH (11:19)
[2017-12-20] MEDS: Iron Sucrose Inj 200 MG in Sodium Chlor 0.9% Inj 100 ML IV.SIG SCH (11:31)
--- NOTE | 2017-12-20 11:48 | P.PN ---
Subjective Interval history: This is a pleasant 62 y/o Female who came to ER with complaint of nausea, vomit and Diarrhea, generalized weakness, lightheaded sensation and dizziness. had C. difficile colitis 2 years ago. has Depression, Tobacco dependence, was indicated for admission by ER physician , observation The patient is been having symptomatology for the last two years she went to her PCP during the last two years with pain on the Right lower quadrant. 12/14: Seen in her bedroom discussed with nurse Miss Mastersllian and at this time will go for EGD and Colonoscopy by GI specialist. 12/15: Status post Colonoscopy found Cecal mass likely malignancy, recommended for laparoscopic assisted Colectomy, at this time in her room stable, no new issues. 12/16: Discussed early in am with nurse Sun patient with Hemoglobin 6.5 asked for blood transfusion of two units of PRBCs and reserve two more during the surgery. seen after procedure performed in the presence of her , continue pain medicine and following. 12/17: Seen in her bedroom in the presence of her wanted her dosages if morphine reduced and was done by General surgery. 12/18: Distended in her bedroom, not passing gas, recommended to continue activity, needs to walk, seen walking in the aisle. 12/19: Seen in her bedroom, stable, not passing gas, walking twice today, abdominal pain continue POD #3, General Surgery following. some nausea but no vomit 12/20: discussed with patient in the room, improving she had bowel movement, feeling better, having Iron IV at this time given by forensic identification specialist, General Surgery found Cellulitis on incision started on Levaquin and Flagyl. No nausea, vomit or diarrhea. Physical Exam Vital signs: Vital Signs 12/19/17 12:00 12/19/17 12:35 12/19/17 12:46 Temperature 97.6 F Pulse Rate 95 H 97 H Respiratory Rate 17 16 Blood Pressure 142/80 H Pulse Oximetry 93 L 12/19/17 13:47 12/19/17 16:00 12/19/17 16:13 Temperature 97.9 F Pulse Rate 90 Respiratory Rate 17 17 16 Blood Pressure 169/77 H Pulse Oximetry 93 L 12/19/17 16:54 12/19/17 17:51 12/19/17 20:00 Temperature 97.7 F Pulse Rate 87 91 H Respiratory Rate 16 20 Blood Pressure 162/77 H Pulse Oximetry 94 L 12/20/17 00:00 12/20/17 04:00 12/20/17 08:00 Temperature 98.4 F 97.9 F 97.6 F Pulse Rate 94 H 88 100 H Respiratory Rate 20 18 17 Blood Pressure 166/80 H 143/75 H 152/73 H Pulse Oximetry 93 L 93 L 91 L Intake & Output 12/19/17 12/20/17 12/20/17 18:59 06:59 18:59 Intake Total 1200 / 1200 1615 / 1615 Balance 1200 / 1200 1615 / 1615 Weight 99.1 kg Intake: IV 1200 / 1200 1255 / 1255 NS Inj 1,000 ML @ 125 mls/hr IV 1000 / 1000 1000 / 1000 .CONT .Q8H CAT Rx#:[id number] Magnesium Sulfate 1 gm/D5W 100 100 / 100 ml Premix 100 ML @ 100 mls/hr IV.SIG ONCE ONE Rx#:[id number] KCl 20 mEq Premix Inj 20 meq In 100 / 100 100 / 100 100 ml @ 50 mls/hr IV.SIG Q2H CAT Rx#:[id number] Oral 360 / 360 Other: # Voids 5 1 Narrative: GENERAL: Obese, Well-developed patient, in no apparent distress. CARDIOVASCULAR: Regular rate and rhythm without murmurs, gallops, or rubs. RESPIRATORY: Clear to auscultation. Breath sounds equal bilaterally. No wheezes , rales, or rhonchi. GASTROINTESTINAL: Abdomen soft, erythema on surgical wound. MUSCULOSKELETAL: Extremities without clubbing, cyanosis, or edema. NEURO: Alert & Oriented x4 to person, place, time, situation. Moves all ext x4 - Urinary Catheter Management Indwelling Urethral Catheter Cath placed during this visit: yes Reason for continuing: Acute urinary retention Insertion date: 12/16/17 Insertion time: 10:00 Results - Labs CBC & Chem 7: 12/20/17 06:50 12/20/17 06:50 Laboratory Results - last 24 hr 12/19/17 12/20/17 12/20/17 16:30 06:50 06:50 WBC 4.9 3.8 L RBC 3.05 L 3.06 L Hgb 7.1 L 7.2 L Hct 23.0 L 23.1 L MCV 75.7 L 75.5 L MCH 23.2 L 23.5 L MCHC 30.6 L 31.1 L RDW 19.2 H 19.2 H Plt Count 170 181 MPV 7.4 7.3 Neut % (Auto) 67.8 62.9 Lymph % (Auto) 16.1 17.3 [place] % (Auto) 11.9 H 15.1 H Eos % (Auto) 3.6 4.1 H Baso % (Auto) 0.6 0.6 Neut # (Auto) 3.3 2.4 Lymph # (Auto) 0.8 L 0.7 L [place] # (Auto) 0.6 0.6 Eos # (Auto) 0.2 0.2 Baso # (Auto) 0.0 0.0 WBC Differential . . Differential Comment Auto diff final Auto diff final Sodium 143 Potassium 3.5 Chloride 109 H Carbon Dioxide 25.7 Anion Gap 8 BUN 6 L Creatinine 0.66 Estimated GFR Greater than 89 Random Glucose 79 Calcium 7.9 L - Procedures Date: 12/16/17 12:29 - Preoperative Diagnosis (1) Small bowel obstruction (2) Mass of cecum - Postoperative Diagnosis (1) Small bowel obstruction (2) Mass of cecum Date of procedure: 12/16/17 Procedure: Laparoscopic assisted right colectomy Anesthesia: GETA Surgeon: Geoffrey Nolan MD Assessment and Plan - Plan 1. Small Bowel Obstruction, had CT of Abdomen and Pelvis, with result of SBO, secondary to probable mass on Ileocecal valve, appendix unremarkable, 1.5 cm indeterminate cortical based lesion involving the left kidney cannot exclude a solid mass, found Cecal mass likely malignancy, on EGD found Hiatal hernia, Erosive gastritis, started on PPIs. Status post Laparoscopic assisted Right Colectomy 12/16/17, by Doctor Geoffrey Nolan today decreased dosages of Morphine as per General Surgery. had bowel movement, but developed Cellulitis on her surgical wound, recommended by General Surgery to start Levaquin/Flagyl. 2. 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 Depression continue Home medicines once able to take by mouth. 4. Tobacco dependence strongly recommended stop smoking. 5. Obesity strongly recommended diet and exercise. 6. Electrolyte derangement continue replacement giving 40 meq of Potassium IV, Magnesium 1 gram and Sodium Phosphate 15 mmol. 7. Anemia on chronic disease giving two units of PRBCs and reserved two more for surgery, Hemoglobin 7.2 receiving Iron IV. DVT prophylaxis with Lovenox Encourage ambulation. Code Status: Full code. Discussed Condition With: Patient and Nurse. Discharge Planning: Once cleared by General Surgery and computer network specialist.
--- NOTE | 2017-12-20 12:41 | P.PNGS ---
Subjective Interval history: She feels better than yesterday. Mild nausea. Had liquid BM. Physical Exam Vital signs: Vital Signs 12/19/17 12:46 12/19/17 13:47 12/19/17 16:00 Temperature 97.9 F Pulse Rate 90 Respiratory Rate 16 17 17 Blood Pressure 169/77 H Pulse Oximetry 93 L 12/19/17 16:13 12/19/17 16:54 12/19/17 17:51 Temperature Pulse Rate 87 Respiratory Rate 16 16 Blood Pressure Pulse Oximetry 12/19/17 20:00 12/20/17 00:00 12/20/17 04:00 Temperature 97.7 F 98.4 F 97.9 F Pulse Rate 91 H 94 H 88 Respiratory Rate 20 20 18 Blood Pressure 162/77 H 166/80 H 143/75 H Pulse Oximetry 94 L 93 L 93 L 12/20/17 08:00 12/20/17 12:00 Temperature 97.6 F 97.4 F L Pulse Rate 100 H 91 H Respiratory Rate 17 18 Blood Pressure 152/73 H 171/80 H Pulse Oximetry 91 L 95 Intake & Output 12/19/17 12/20/17 12/20/17 18:59 06:59 18:59 Intake Total 1200 / 1200 1615 / 1615 110 / 110 Balance 1200 / 1200 1615 / 1615 110 / 110 Weight 99.1 kg Intake: IV 1200 / 1200 1255 / 1255 110 / 110 NS Inj 1,000 ML @ 125 mls/hr IV 1000 / 1000 1000 / 1000 .CONT .Q8H CAT Rx#:[id number] Venofer Inj 200 MG In NS Inj 110 / 110 100 ML @ 110 mls/hr IV.SIG DAILY CAT Rx#:[id number] Magnesium Sulfate 1 gm/D5W 100 100 / 100 ml Premix 100 ML @ 100 mls/hr IV.SIG ONCE ONE Rx#:[id number] KCl 20 mEq Premix Inj 20 meq In 100 / 100 100 / 100 100 ml @ 50 mls/hr IV.SIG Q2H CAT Rx#:[id number] Oral 360 / 360 Other: # Voids 5 1 Narrative: NAD Abd: mild distention, inc with mild erythema and induration superiorly- I opened it slightly with drainage of slightly cloudy pink fluid. - Urinary Catheter Management Indwelling Urethral Catheter Cath placed during this visit: yes Reason for continuing: Acute urinary retention Insertion date: 12/16/17 Insertion time: 10:00 Assessment and Plan - Assessment (1) Small bowel obstruction Code(s): K56.609 - Unspecified intestinal obstruction, unspecified as to partial versus complete obstruction Status: Acute - Plan POD 4 lap assisted right colectomy. Stable post op. Anemia which is chronic. She received 2 U RBC prior to surgery. Cellulitis at incision- start levaquin/flagyl. Reglan, protonix, tums PRN. Cont fulls.
[2017-12-20] MEDS: Pantoprazole Inj 40 MG Vial IV.PUSH SCH (15:40)
[2017-12-20] MEDS: levoFLOXacin 750 MG Tablet PO SCH (15:40)
[2017-12-20] MEDS: metroNIDAZOLE 500 MG Tablet PO SCH (17:51)
[2017-12-21] MEDS: metroNIDAZOLE 500 MG Tablet PO SCH ×5 (01:01→23:11)
[2017-12-21] MEDS: Ketorolac Inj 30 MG/ML (IVP) Vial IV.PUSH SCH ×3 (01:02→12:13)
[2017-12-21] MEDS: Sod Chloride 0.9% Inj 1,000 ML IV.CONT SCH ×2 (05:46→16:26)
[2017-12-21] MEDS: Iron Sucrose Inj 200 MG in Sodium Chlor 0.9% Inj 100 ML IV.SIG SCH (08:59)
[2017-12-21] MEDS: Enoxaparin Inj 40 MG/0.4 ML Syringe SQ SCH (12:19)
--- NOTE | 2017-12-21 12:47 | P.PNGS ---
Subjective Interval history: Feels slightly SOB. Feels bloated but does want to try food. SHe is having flatus and liquid bm. Physical Exam Vital signs: Vital Signs 12/20/17 16:00 12/20/17 20:00 12/21/17 00:00 Temperature 97.4 F L 98.4 F 98.4 F Pulse Rate 87 92 H 93 H Respiratory Rate 18 17 17 Blood Pressure 181/82 H 139/75 148/70 H Pulse Oximetry 95 92 L 96 12/21/17 05:10 12/21/17 08:00 12/21/17 12:00 Temperature 97.1 F L 97.6 F 97.8 F Pulse Rate 89 88 86 Respiratory Rate 17 17 17 Blood Pressure 135/91 H 159/74 H 142/75 H Pulse Oximetry 93 L 97 94 L Intake & Output 12/20/17 12/21/17 12/21/17 18:59 06:59 18:59 Intake Total 3310 / 3310 1999 / 1999 Balance 3310 / 3310 1999 Weight 99.9 kg Intake: IV 1110 / 1110 1000 / 1000 NS Inj 1,000 ML @ 125 mls/hr IV 1000 / 1000 1000 / 1000 .CONT .Q8H CAT Rx#:[id number] Venofer Inj 200 MG In NS Inj 110 / 110 100 ML @ 110 mls/hr IV.SIG DAILY CAT Rx#:[id number] Oral 1300 / 1300 1000 / 1000 Other 900 / 900 Other: # Voids 3 3 Date of Last Bowel Movement 12/20/17 12/20/17 # Bowel Movements 0 Narrative: NAD, comfortable in bed nonlabored breathing Abd: soft, moderate distention; right side incision with mild erythem and induration- two jono removed, thick pink fluid drained and packed with 2x2 - Urinary Catheter Management Indwelling Urethral Catheter Cath placed during this visit: yes Reason for continuing: Acute urinary retention Insertion date: 12/16/17 Insertion time: 10:00 Assessment and Plan - Assessment (1) Small bowel obstruction Code(s): K56.609 - Unspecified intestinal obstruction, unspecified as to partial versus complete obstruction Status: Acute - Plan POD 5 lap assisted right colectomy. Stable post op. Anemia which is chronic. She received 2 U RBC prior to surgery. Superficial wound infection- start packing twice daily. Cont levaquin/flagyl. Reglan, protonix, tums PRN. Soft diet. Path pending.
[2017-12-21] MEDS: Pantoprazole Inj 40 MG Vial IV.PUSH SCH (16:24)
[2017-12-21] MEDS: levoFLOXacin 750 MG Tablet PO SCH (16:33)
--- NOTE | 2017-12-21 17:02 | P.PN ---
Subjective Interval history: This is a pleasant 62 y/o Female who came to ER with complaint of nausea, vomit and Diarrhea, generalized weakness, lightheaded sensation and dizziness. had C. difficile colitis 2 years ago. has Depression, Tobacco dependence, was indicated for admission by ER physician , observation The patient is been having symptomatology for the last two years she went to her PCP during the last two years with pain on the Right lower quadrant. 12/14: Seen in her bedroom discussed with nurse Miss Sierra and at this time will go for EGD and Colonoscopy by GI specialist. 12/15: Status post Colonoscopy found Cecal mass likely malignancy, recommended for laparoscopic assisted Colectomy, at this time in her room stable, no new issues. 12/16: Discussed early in am with nurse Usn patient with Hemoglobin 6.5 asked for blood transfusion of two units of PRBCs and reserve two more during the surgery. seen after procedure performed in the presence of her , continue pain medicine and following. 12/17: Seen in her bedroom in the presence of her wanted her dosages if morphine reduced and was done by General surgery. 12/18: Distended in her bedroom, not passing gas, recommended to continue activity, needs to walk, seen walking in the aisle. 12/19: Seen in her bedroom, stable, not passing gas, walking twice today, abdominal pain continue POD #3, General Surgery following. some nausea but no vomit 12/20: discussed with patient in the room, improving she had bowel movement, feeling better, having Iron IV at this time given by clinical safety specialist, General Surgery found Cellulitis on incision started on Levaquin and Flagyl. 12/21: Patient seen initially walking in the aisle, very active, developed surgical wound infection, General Surgery following, abdominal pain improving asked me to remove Morphine from her MR. Physical Exam Vital signs: Vital Signs 12/20/17 20:00 12/21/17 00:00 12/21/17 05:10 Temperature 98.4 F 98.4 F 97.1 F L Pulse Rate 92 H 93 H 89 Respiratory Rate 17 17 17 Blood Pressure 139/75 148/70 H 135/91 H Pulse Oximetry 92 L 96 93 L 12/21/17 08:00 12/21/17 12:00 12/21/17 16:00 Temperature 97.6 F 97.8 F 97.2 F L Pulse Rate 88 86 100 H Respiratory Rate 17 17 18 Blood Pressure 159/74 H 142/75 H 181/82 H Pulse Oximetry 97 94 L 98 Intake & Output 12/20/17 12/21/17 12/21/17 18:59 06:59 18:59 Intake Total 3310 / 3310 1999 / 1999 1000 / 1000 Balance 3310 / 3310 1999 / 1999 1000 / 1000 Weight 99.9 kg Intake: IV 1110 / 1110 1000 / 1000 1000 / 1000 NS Inj 1,000 ML @ 125 mls/hr IV 1000 / 1000 1000 / 1000 1000 / 1000 .CONT .Q8H CAT Rx#:[id number] Venofer Inj 200 MG In NS Inj 110 / 110 100 ML @ 110 mls/hr IV.SIG DAILY CAT Rx#:[id number] Oral 1300 / 1300 1000 / 1000 Other 900 / 900 Other: # Voids 3 3 Date of Last Bowel Movement 12/20/17 12/20/17 # Bowel Movements 0 Narrative: GENERAL: Obese, Well-developed patient, in no apparent distress. CARDIOVASCULAR: Regular rate and rhythm without murmurs, gallops, or rubs. RESPIRATORY: Clear to auscultation. Breath sounds equal bilaterally. No wheezes , rales, or rhonchi. GASTROINTESTINAL: Soft, dressed surgical wound. MUSCULOSKELETAL: Extremities without clubbing, cyanosis, or edema. NEURO: Alert & Oriented x4 to person, place, time, situation. Moves all ext x4 - Urinary Catheter Management Indwelling Urethral Catheter Cath placed during this visit: yes Reason for continuing: Acute urinary retention Insertion date: 12/16/17 Insertion time: 10:00 Results - Labs CBC & Chem 7: 12/20/17 06:50 12/20/17 06:50 - Procedures Date: 12/16/17 12:29 - Preoperative Diagnosis (1) Small bowel obstruction (2) Mass of cecum - Postoperative Diagnosis (1) Small bowel obstruction (2) Mass of cecum Date of procedure: 12/16/17 Procedure: Laparoscopic assisted right colectomy Anesthesia: GETA Surgeon: Geoffrey Nolan MD Assessment and Plan - Plan 1. Small Bowel Obstruction, had CT of Abdomen and Pelvis, with result of SBO, secondary to probable mass on Ileocecal valve, appendix unremarkable, 1.5 cm indeterminate cortical based lesion involving the left kidney cannot exclude a solid mass, found Cecal mass likely malignancy, on EGD found Hiatal hernia, Erosive gastritis, started on PPIs. Status post Laparoscopic assisted Right Colectomy 12/16/17, by Doctor Geoffrey Nolan today decreased dosages of Morphine as per General Surgery. had bowel movement, but developed two jono removed, thick pink fluid drained and packed with 2x2. Cellulitis on her surgical wound, recommended by General Surgery to start Levaquin/Flagyl. 2. 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 Depression continue Home medicines once able to take by mouth. 4. Tobacco dependence strongly recommended stop smoking. 5. Obesity strongly recommended diet and exercise. 6. Electrolyte derangement asked for new laboratory for tomorrow. 7. Anemia on chronic disease giving two units of PRBCs and reserved two more for surgery, Hemoglobin 7.2 receiving Iron IV. DVT prophylaxis with Lovenox Encourage ambulation. Code Status: Full code. Discussed Condition With: Patient and Nurse Discharge Planning: Once cleared by General Surgery and policy specialist.
--- NOTE | 2017-12-21 17:17 | P.PNONC ---
Subjective Interval history: Patient sitting up in bed, states she feels better since receiving the iron therapy. She reports increase in energy. Objective Vital Signs/Intake & Output: Vital Signs 12/20/17 20:00 12/21/17 00:00 12/21/17 05:10 Temperature 98.4 F 98.4 F 97.1 F L Pulse Rate 92 H 93 H 89 Respiratory Rate 17 17 17 Blood Pressure 139/75 148/70 H 135/91 H Pulse Oximetry 92 L 96 93 L 12/21/17 08:00 12/21/17 12:00 12/21/17 16:00 Temperature 97.6 F 97.8 F 97.2 F L Pulse Rate 88 86 100 H Respiratory Rate 17 17 18 Blood Pressure 159/74 H 142/75 H 181/82 H Pulse Oximetry 97 94 L 98 Intake & Output 12/20/17 12/21/17 12/21/17 18:59 06:59 18:59 Intake Total 3310 / 3310 2000 / 2000 1000 / 1000 Balance 3310 / 3310 2000 / 2000 1000 / 1000 Weight 99.9 kg Intake: IV 1110 / 1110 1000 / 1000 1000 / 1000 NS Inj 1,000 ML @ 125 mls/hr IV 1000 / 1000 1000 / 1000 1000 / 1000 .CONT .Q8H CAT Rx#:[id number] Venofer Inj 200 MG In NS Inj 110 / 110 100 ML @ 110 mls/hr IV.SIG DAILY CAT Rx#:[id number] Oral 1300 / 1300 1000 / 1000 Other 900 / 900 Other: # Voids 3 3 Date of Last Bowel Movement 12/20/17 12/20/17 # Bowel Movements 0 Result Diagrams: 12/20/17 06:50 12/20/17 06:50 Medications: Active Medications Generic Name Dose Route Start Last Admin Trade Name Freq PRN Reason Stop Dose Admin Hydrocodone Bitart/Acetaminophen 1 tab 12/19/17 13:34 12/21/17 16:33 [place] 7.5/325 PO 1 tab Q4H PRN Administration PAIN SCALE 4 TO 10 Enoxaparin Sodium 40 mg 12/17/17 12:00 12/21/17 12:19 Lovenox Inj SQ 40 mg Q24H CAT Administration Sodium Chloride 1,000 mls @ 125 mls/hr 12/13/17 06:15 12/21/17 16:26 Ns Inj IV.CONT 75 mls/hr .Q8H CAT Administration Iron Sucrose 200 mg/ Sodium 110 mls @ 110 mls/hr 12/20/17 11:30 12/21/17 09: 59 Chloride IV.SIG 12/22/17 09:59 0 mls/hr DAILY CAT Infusion Ketorolac Tromethamine 30 mg 12/16/17 18:00 12/21/17 12:13 Toradol Inj IV.PUSH 12/21/17 17:59 Not Given Q6H CAT Levofloxacin 750 mg 12/20/17 14:00 12/21/17 16:33 Levaquin PO 750 mg Q24H CAT Administration Metoclopramide HCl 10 mg 12/19/17 15:00 12/21/17 16:32 Reglan Inj IV.PUSH 10 mg Q8HR CAT Administration Protocol Metronidazole 500 mg 12/20/17 18:00 12/21/17 12:19 Flagyl PO 500 mg Q6HR CAT Administration Morphine Sulfate 2 mg 12/17/17 10:53 12/19/17 20:51 Morphine Inj IV.PUSH 2 mg Q3H PRN Administration BREAKTHROUGH PAIN Nicotine 1 patch 12/13/17 16:30 12/21/17 09:00 Habitrol 14 Mg Patch.24 Hr T-DERMAL 1 patch DAILY CAT Administration Ondansetron HCl 4 mg 12/16/17 12:38 12/19/17 11:37 Zofran Odt PO 4 mg Q6H PRN Administration NAUSEA OR VOMITING Ondansetron HCl 4 mg 12/16/17 12:39 12/21/17 16:24 Zofran Inj IV.PUSH 4 mg Q6H PRN Administration NAUSEA OR VOMITING Pantoprazole Sodium 40 mg 12/19/17 15:00 12/21/17 16:24 Protonix Inj IV.PUSH 40 mg Q24H CAT Administration Patch Removal 1 each 12/13/17 17:00 12/21/17 09:00 Remove Old Patch T-DERMAL 1 each DAILY CAT Administration Objective Remarks: GENERAL: Ill-appearing female patient, in no acute distress. SKIN: Warm and dry. HEAD: Normocephalic. EYES: No scleral icterus. No injection or drainage. NECK: Supple, trachea midline. CARDIOVASCULAR: Regular rate and rhythm without murmurs. RESPIRATORY: Posterior breath sounds clear, equal bilaterally. No accessory muscle use. GASTROINTESTINAL: Abdomen soft, non-tender, nondistended. Dressing to right lower quadrant, dry/intact. EXTREMITIES: No cyanosis, or edema. MUSCULOSKELETAL: Adequate muscle tone. NEUROLOGICAL: No obvious focal deficit. Awake, alert, and oriented x3. PSYCHIATRIC: Appropriate mood and affect; insight and judgment normal. Assessment/Plan - Plan This is a pleasant 62-year-old female with newly diagnosed colon cancer status post right colectomy on 12/16/2017. She is also been noted to have iron deficiency anemia. Pathology is pending awaiting this for staging. Plan: 1. Await pathology for staging. Patient may need a outpatient PET scan if there appears to be lymph node involvement. 2. Transfuse iron sucrose for iron deficiency anemia. 3. Supportive care - Attending Statement The exam, history, and the medical decision-making described in the above note were completed with the assistance of the mid-level provider. I reviewed and agree with the findings presented. I attest that I had a [id number] encounter with the patient on the same day, and personally performed and documented my assessment and findings in the medical record.Pt feeling better. Tolerated venofer. +BM. Path pending this am. Continue supportive care.
[2017-12-22] MEDS: Sod Chloride 0.9% Inj 1,000 ML IV.CONT SCH ×3 (00:32→15:18)
[2017-12-22] MEDS: metroNIDAZOLE 500 MG Tablet PO SCH ×4 (05:12→23:22)
[2017-12-22 07:01] LABS: Hematocrit 22.8 % (35.0-46.0); Hemoglobin 7.1 gm/dL (11.6-15.3); Mean Corpuscular HGB Conc 31.3 % (32.0-36.0); Mean Corpuscular Hemoglobin 23.5 pg (27.0-34.0); Mean Platelet Volume 7.7 fL (7.0-11.0); Platelet Count 193 th/mm3 (150-450); Red Blood Count 3.04 mil/mm3 (4.00-5.30); Red Cell Distribution Width 19.6 % (11.6-17.2); White Blood Count 4.9 th/mm3 (4.0-11.0)
[2017-12-22 07:31] LABS: Anion Gap 8 meq/L (5-15); Blood Urea Nitrogen 3 mg/dL (7-18); Calcium 7.8 mg/dL (8.5-10.1); Chloride 109 meq/L (98-107); Glomerular Filtration Rate Greater Than 89 mL/min (>89); Glucose,Random 68 mg/dL (74-106); Magnesium 1.9 mg/dL (1.5-2.5); Potassium 3.4 meq/L (3.5-5.1); Sodium 144 meq/L (136-145)
[2017-12-22] MEDS: Iron Sucrose Inj 200 MG in Sodium Chlor 0.9% Inj 100 ML IV.SIG SCH (09:01)
--- NOTE | 2017-12-22 09:48 | P.PNONC ---
Subjective Interval history: Afebrile Patient resting in bed in no acute distress Reports she was up for a couple of hours this morning Reports she still has some abdominal pain but this is overall improving Passing flatus Objective Vital Signs/Intake & Output: Vital Signs 12/21/17 12:00 12/21/17 16:00 12/21/17 20:00 Temperature 97.8 F 97.2 F L 98.0 F Pulse Rate 86 100 H 92 H Respiratory Rate 17 18 18 Blood Pressure 142/75 H 181/82 H 141/78 H Pulse Oximetry 94 L 98 95 12/22/17 00:00 12/22/17 04:00 Temperature 97.7 F 97.9 F Pulse Rate 86 84 Respiratory Rate 18 18 Blood Pressure 163/75 H 144/92 H Pulse Oximetry 96 95 Intake & Output 12/21/17 12/22/17 12/22/17 18:59 06:59 18:59 Intake Total 2200 / 2200 1000 / 1000 110 / 110 Balance 2200 / 2200 1000 / 1000 110 / 110 Weight 218 lb 0.595 oz Intake: IV 1000 / 1000 1000 / 1000 110 / 110 NS Inj 1,000 ML @ 125 mls/hr IV 1000 / 1000 1000 / 1000 .CONT .Q8H CAT Rx#:[id number] Venofer Inj 200 MG In NS Inj 110 / 110 100 ML @ 110 mls/hr IV.SIG DAILY CAT Rx#:[id number] Oral 1200 / 1200 Other: # Voids 5 2 Date of Last Bowel Movement 12/20/17 12/20/17 # Bowel Movements 6 1 Result Diagrams: 12/22/17 05:12 12/22/17 05:12 Laboratory Results: Laboratory Results - last 24 hr 12/22/17 12/22/17 05:12 05:12 WBC 4.9 RBC 3.04 L Hgb 7.1 L Hct 22.8 L MCV 75.0 L MCH 23.5 L MCHC 31.3 L RDW 19.6 H Plt Count 193 MPV 7.7 Sodium 144 Potassium 3.4 L Chloride 109 H Carbon Dioxide 27.0 Anion Gap 8 BUN 3 L Creatinine 0.58 Estimated GFR Greater than 89 Random Glucose 68 L Calcium 7.8 L Magnesium 1.9 Medications: Active Medications Generic Name Dose Route Start Last Admin Trade Name Freq PRN Reason Stop Dose Admin Hydrocodone Bitart/Acetaminophen 1 tab 12/19/17 13:34 12/22/17 05:12 [place] 7.5/325 PO 1 tab Q4H PRN Administration PAIN SCALE 4 TO 10 Enoxaparin Sodium 40 mg 12/17/17 12:00 12/21/17 12:19 Lovenox Inj SQ 40 mg Q24H CAT Administration Sodium Chloride 1,000 mls @ 125 mls/hr 12/13/17 06:15 12/22/17 06:34 Ns Inj IV.CONT Not Given .Q8H CAT Iron Sucrose 200 mg/ Sodium 110 mls @ 110 mls/hr 12/20/17 11:30 12/22/17 09: 01 Chloride IV.SIG 12/22/17 09:59 110 mls/hr DAILY CAT Administration Levofloxacin 750 mg 12/20/17 14:00 12/21/17 16:33 Levaquin PO 750 mg Q24H CAT Administration Metoclopramide HCl 10 mg 12/19/17 15:00 12/22/17 05:12 Reglan Inj IV.PUSH 10 mg Q8HR CAT Administration Protocol Metronidazole 500 mg 12/20/17 18:00 12/22/17 05:12 Flagyl PO 500 mg Q6HR CAT Administration Morphine Sulfate 2 mg 12/17/17 10:53 12/19/17 20:51 Morphine Inj IV.PUSH 2 mg Q3H PRN Administration BREAKTHROUGH PAIN Nicotine 1 patch 12/13/17 16:30 12/22/17 09:02 Habitrol 14 Mg Patch.24 Hr T-DERMAL 1 patch DAILY CAT Administration Ondansetron HCl 4 mg 12/16/17 12:38 12/19/17 11:37 Zofran Odt PO 4 mg Q6H PRN Administration NAUSEA OR VOMITING Ondansetron HCl 4 mg 12/16/17 12:39 12/21/17 16:24 Zofran Inj IV.PUSH 4 mg Q6H PRN Administration NAUSEA OR VOMITING Pantoprazole Sodium 40 mg 12/19/17 15:00 12/21/17 16:24 Protonix Inj IV.PUSH 40 mg Q24H CAT Administration Patch Removal 1 each 12/13/17 17:00 12/22/17 09:02 Remove Old Patch T-DERMAL 1 each DAILY CAT Administration Objective Remarks: GENERAL: Older female resting in bed in no obvious distress SKIN: Warm and dry. HEAD: Normocephalic. EYES: No scleral icterus. No injection or drainage. NECK: Supple, trachea midline. CARDIOVASCULAR: Regular rate and rhythm without murmurs. RESPIRATORY: Posterior breath sounds clear, equal bilaterally. No accessory muscle use. GASTROINTESTINAL: Abdomen soft, non-tender, nondistended. Dressing to right lower quadrant, dry/intact. EXTREMITIES: No cyanosis, or edema. MUSCULOSKELETAL: Adequate muscle tone. NEUROLOGICAL: No obvious focal deficit. Awake, alert, and oriented x3. Assessment/Plan - Plan This is a pleasant 62-year-old female with newly diagnosed colon cancer status post right colectomy on 12/16/2017. She is also been noted to have iron deficiency anemia. Pathology shows moderately differentiated invasive adenocarcinoma involving the ileocecal valve. 19 lymph nodes negative. Clear margins. She is noted to have stage pT3, pN0, M0 ultimately stage II disease. Plan: 1. [facility] She reports that she will need to follow-up with them outpatient to arrange care. 2. Third and final dose of iron sucrose infusing this morning. Patient tolerating well. 3. I have faxed orders to pathology to add MSI testing to specimen. - Attending Statement The exam, history, and the medical decision-making described in the above note were completed with the assistance of the mid-level provider. I reviewed and agree with the findings presented. I attest that I had a [id number] encounter with the patient on the same day, and personally performed and documented my assessment and findings in the medical record. Patient is feeling better. She still has mild abdominal soreness. She is tolerating Venofer infusion very well. Hemoglobin is stable. Pathology is back which showed 8.5 cm invasive moderately differentiated adenocarcinoma involving the ileocecal valve. No perforation noted. No lymphovascular invasion or perineural invasion noted. 19 lymph node were negative. Pathologic stage T3 N0. Review pathology with patient. Her questions were answered. Will check MSI status. Can also consider doing Oncotype DX test. Will need further discussion regarding adjuvant chemotherapy after we have all the above tests. 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 No further workup needed for the small carcinoid tumor at this time.
[2017-12-22] MEDS: Enoxaparin Inj 40 MG/0.4 ML Syringe SQ SCH (12:45)
--- NOTE | 2017-12-22 13:16 | P.PN ---
Subjective Interval history: This is a pleasant 62 y/o Female who came to ER with complaint of nausea, vomit and Diarrhea, generalized weakness, lightheaded sensation and dizziness. had C. difficile colitis 2 years ago. has Depression, Tobacco dependence, was indicated for admission by ER physician , observation The patient is been having symptomatology for the last two years she went to her PCP during the last two years with pain on the Right lower quadrant. 12/14: Seen in her bedroom discussed with nurse Miss Sierra and at this time will go for EGD and Colonoscopy by GI specialist. 12/15: Status post Colonoscopy found Cecal mass likely malignancy, recommended for laparoscopic assisted Colectomy, at this time in her room stable, no new issues. 12/16: Discussed early in am with nurse Sun patient with Hemoglobin 6.5 asked for blood transfusion of two units of PRBCs and reserve two more during the surgery. seen after procedure performed in the presence of her , continue pain medicine and following. 12/17: Seen in her bedroom in the presence of her wanted her dosages if morphine reduced and was done by General surgery. 12/18: Distended in her bedroom, not passing gas, recommended to continue activity, needs to walk, seen walking in the aisle. 12/19: Seen in her bedroom, stable, not passing gas, walking twice today, abdominal pain continue POD #3, General Surgery following. some nausea but no vomit 12/20: discussed with patient in the room, improving she had bowel movement, feeling better, having Iron IV at this time given by health communications specialist, General Surgery found Cellulitis on incision started on Levaquin and Flagyl. 12/21: Patient seen initially walking in the aisle, very active, developed surgical wound infection, General Surgery following, abdominal pain improving asked me to remove Morphine from her MR. 12/22: Seen in her bedroom, no complaint, no nausea, vomit or diarrhea, not yet clear for discharge by General Surgery as per Oncology the patient will follow her physicians at [place]. Physical Exam Vital signs: Vital Signs 12/21/17 16:00 12/21/17 20:00 12/22/17 00:00 Temperature 97.2 F L 98.0 F 97.7 F Pulse Rate 100 H 92 H 86 Respiratory Rate 18 18 18 Blood Pressure 181/82 H 141/78 H 163/75 H Pulse Oximetry 98 95 96 12/22/17 04:00 12/22/17 08:00 12/22/17 12:00 Temperature 97.9 F 97.5 F L 97.8 F Pulse Rate 84 86 88 Respiratory Rate 18 18 18 Blood Pressure 144/92 H 154/80 H 143/83 H Pulse Oximetry 95 94 L 94 L Intake & Output 12/21/17 12/22/17 12/22/17 18:59 06:59 18:59 Intake Total 2200 / 2200 1000 / 1000 220 / 220 Balance 2200 / 2200 1000 / 1000 220 / 220 Weight 98.9 kg Intake: IV 1000 / 1000 1000 / 1000 220 / 220 NS Inj 1,000 ML @ 125 mls/hr IV 1000 / 1000 1000 / 1000 .CONT .Q8H CAT Rx#:[id number] Venofer Inj 200 MG In NS Inj 220 / 220 100 ML @ 110 mls/hr IV.SIG DAILY CAT Rx#:[id number] Oral 1200 / 1200 Other: # Voids 5 2 Date of Last Bowel Movement 12/20/17 12/20/17 12/22/17 # Bowel Movements 6 1 Narrative: GENERAL: Obese, Well-developed patient, in no apparent distress. CARDIOVASCULAR: Regular rate and rhythm without murmurs, gallops, or rubs. RESPIRATORY: Clear to auscultation. Breath sounds equal bilaterally. No wheezes , rales, or rhonchi. GASTROINTESTINAL: Soft, dressed surgical wound. MUSCULOSKELETAL: Extremities without clubbing, cyanosis, or edema. NEURO: Alert & Oriented x4 to person, place, time, situation. Moves all ext x4 - Urinary Catheter Management Indwelling Urethral Catheter Cath placed during this visit: yes Reason for continuing: Acute urinary retention Insertion date: 12/16/17 Insertion time: 10:00 Results - Labs CBC & Chem 7: 12/22/17 05:12 12/22/17 05:12 Laboratory Results - last 24 hr 12/22/17 12/22/17 05:12 05:12 WBC 4.9 RBC 3.04 L Hgb 7.1 L Hct 22.8 L MCV 75.0 L MCH 23.5 L MCHC 31.3 L RDW 19.6 H Plt Count 193 MPV 7.7 Sodium 144 Potassium 3.4 L Chloride 109 H Carbon Dioxide 27.0 Anion Gap 8 BUN 3 L Creatinine 0.58 Estimated GFR Greater than 89 Random Glucose 68 L Calcium 7.8 L Magnesium 1.9 - Procedures Date: 12/16/17 12:29 - Preoperative Diagnosis (1) Small bowel obstruction (2) Mass of cecum - Postoperative Diagnosis (1) Small bowel obstruction (2) Mass of cecum Date of procedure: 12/16/17 Procedure: Laparoscopic assisted right colectomy Anesthesia: GETA Surgeon: Geoffrey Nolan MD Assessment and Plan - Plan 1. Small Bowel Obstruction, had CT of Abdomen and Pelvis, with result of SBO, secondary to probable mass on Ileocecal valve, appendix unremarkable, 1.5 cm indeterminate cortical based lesion involving the left kidney cannot exclude a solid mass, found Cecal mass likely malignancy, on EGD found Hiatal hernia, Erosive gastritis, started on PPIs. Status post Laparoscopic assisted Right Colectomy 12/16/17, by Doctor Geoffrey Nolan today decreased dosages of Morphine as per General Surgery. had bowel movement, but developed two jono removed, thick pink fluid drained and packed with 2x2. Cellulitis on her surgical wound, recommended by General Surgery to start Levaquin/Flagyl. 2. 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 3. Depression continue Home medicines once able to take by mouth. 4. Tobacco dependence strongly recommended stop smoking. 5. Obesity strongly recommended diet and exercise. 6. Electrolyte derangement replaced for Potassium 3.4 and Magnesium 1.9 7. Anemia on chronic disease giving two units of PRBCs and reserved two more for surgery, Hemoglobin 7.2 receiving Iron IV. DVT prophylaxis with Lovenox Encourage ambulation. Code Status: Full Code. Discussed Condition With: Patient and nurse. Discharge Planning: Once cleared by General Surgery and workers compensation specialist.
[2017-12-22] MEDS ORDERED: Magnesium Oxide 400 MG Tablet PO ONE (15:00)
[2017-12-22] MEDS: Pantoprazole Inj 40 MG Vial IV.PUSH SCH (15:12)
[2017-12-22] MEDS: levoFLOXacin 750 MG Tablet PO SCH (15:18)
--- NOTE | 2017-12-22 16:52 | P.PNGS ---
Subjective Interval history: Doing well.Tolerating diet. Physical Exam Vital signs: Vital Signs 12/21/17 20:00 12/22/17 00:00 12/22/17 04:00 Temperature 98.0 F 97.7 F 97.9 F Pulse Rate 92 H 86 84 Respiratory Rate 18 18 18 Blood Pressure 141/78 H 163/75 H 144/92 H Pulse Oximetry 95 96 95 12/22/17 08:00 12/22/17 12:00 Temperature 97.5 F L 97.8 F Pulse Rate 86 88 Respiratory Rate 18 Blood Pressure 154/80 H 143/83 H Pulse Oximetry 94 L 94 L Intake & Output 12/21/17 12/22/17 12/22/17 18:59 06:59 18:59 Intake Total 2200 / 2200 1000 / 1000 1220 / 1220 Balance 2200 / 2200 1000 / 1000 1220 / 1220 Weight 98.9 kg Intake: IV 1000 / 1000 1000 / 1000 1220 / 1220 NS Inj 1,000 ML @ 125 mls/hr IV 1000 / 1000 1000 / 1000 1000 / 1000 .CONT .Q8H CAT Rx#:[id number] Venofer Inj 200 MG In NS Inj 220 / 220 100 ML @ 110 mls/hr IV.SIG DAILY CAT Rx#:[id number] Oral 1200 / 1200 Other: # Voids 5 2 Date of Last Bowel Movement 12/20/17 12/20/17 12/22/17 # Bowel Movements 6 1 Narrative: NAD Abd: soft, inc right side repacked. Induration and erythema better. - Urinary Catheter Management Indwelling Urethral Catheter Cath placed during this visit: yes Reason for continuing: Acute urinary retention Insertion date: 12/16/17 Insertion time: 10:00 Assessment and Plan - Assessment (1) Small bowel obstruction Code(s): K56.609 - Unspecified intestinal obstruction, unspecified as to partial versus complete obstruction Status: Acute - Plan POD 6 lap assisted right colectomy. Stable post op. Superficial wound infection- packing twice daily. Cont levaquin/flagyl. Reglan, protonix, tums PRN. Soft diet. Path- T3NO adenocarcinoma, and small T1 appendiceal carcinoid. Appreciate oncology recs. Clear for d/c home tomorrow from my standpoint. Will need [facility] wound care for daily packing changes. Need 5 days levaquin/flagyl. F/u with me one week.
--- NOTE | 2017-12-22 16:56 | P.DCO ---
- Home Health Nursing Order: Signs/symptoms of disease process, Wound care and dressing changes, Nursing assessment with vital signs Instructions: Daily packing changes with saline damp 2x2 to right side of transverse incision. cover with dry dressing. - Certification I have seen patient Adriane Vicente on 12/22/17. My clinical findings support the need for the requested home health care services because: Limited mobility due to disease progression, Deconditioned with increased weakness I certify that my clinical findings support that this patient is homebound because: Post-op weakness
[2017-12-23] MEDS: metroNIDAZOLE 500 MG Tablet PO SCH ×2 (05:59→11:37)
--- NOTE | 2017-12-23 07:43 | P.PNONC ---
Subjective Interval history: Patient is feeling better. She is anxious to go home. Has mild abdominal soreness but improved. She is ambulating and tolerating oral intake. She tolerate Venofer infusion well. Objective Vital Signs/Intake & Output: Vital Signs 12/22/17 08:00 12/22/17 12:00 12/22/17 16:00 Temperature 97.5 F L 97.8 F 97.9 F Pulse Rate 86 88 92 H Respiratory Rate 18 18 18 Blood Pressure 154/80 H 143/83 H 169/81 H Pulse Oximetry 94 L 94 L 93 L 12/22/17 20:00 12/23/17 00:00 12/23/17 04:00 Temperature 97.4 F L 97.8 F 97.7 F Pulse Rate 91 H 92 H 81 Respiratory Rate 18 19 18 Blood Pressure 168/77 H 162/77 H 159/69 H Pulse Oximetry 99 97 96 Intake & Output 12/22/17 12/23/17 12/23/17 18:59 06:59 18:59 Intake Total 2440 / 2440 Balance 2440 / 2440 Intake: IV 1720 / 1720 NS Inj 1,000 ML @ 125 mls/hr IV 1500 / 1500 .CONT .Q8H CAT Rx#:[id number] Venofer Inj 200 MG In NS Inj 220 / 220 100 ML @ 110 mls/hr IV.SIG DAILY CAT Rx#:[id number] Oral 720 / 720 Other: # Voids 2 Date of Last Bowel Movement 12/22/17 # Bowel Movements 0 Result Diagrams: 12/22/17 05:12 12/22/17 05:12 Medications: Active Medications Generic Name Dose Route Start Last Admin Trade Name Freq PRN Reason Stop Dose Admin Hydrocodone Bitart/Acetaminophen 1 tab 12/19/17 13:34 12/23/17 03:16 [place] 7.5/325 PO 1 tab Q4H PRN Administration PAIN SCALE 4 TO 10 Enoxaparin Sodium 40 mg 12/17/17 12:00 12/22/17 12:45 Lovenox Inj SQ 40 mg Q24H CAT Administration Levofloxacin 750 mg 12/20/17 14:00 12/22/17 15:18 Levaquin PO 750 mg Q24H CAT Administration Metoclopramide HCl 10 mg 12/19/17 15:00 12/23/17 05:58 Reglan Inj IV.PUSH 10 mg Q8HR CAT Administration Protocol Metronidazole 500 mg 12/20/17 18:00 12/23/17 05:59 Flagyl PO 500 mg Q6HR CAT Administration Nicotine 1 patch 12/13/17 16:30 12/22/17 09:02 Habitrol 14 Mg Patch.24 Hr T-DERMAL 1 patch DAILY CAT Administration Ondansetron HCl 4 mg 12/16/17 12:38 12/19/17 11:37 Zofran Odt PO 4 mg Q6H PRN Administration NAUSEA OR VOMITING Ondansetron HCl 4 mg 12/16/17 12:39 12/21/17 16:24 Zofran Inj IV.PUSH 4 mg Q6H PRN Administration NAUSEA OR VOMITING Pantoprazole Sodium 40 mg 12/19/17 15:00 12/22/17 15:12 Protonix Inj IV.PUSH 40 mg Q24H CAT Administration Patch Removal 1 each 12/13/17 17:00 12/22/17 09:02 Remove Old Patch T-DERMAL 1 each DAILY CAT Administration Sodium Chloride 2 ml 12/13/17 03:52 12/22/17 21:05 Ns Flush IV.FLUSH 2 ml PRN PRN Administration FLUSH AFTER USING IV ACCESS Objective Remarks: GENERAL: Well-nourished, well-developed patient. SKIN: Warm and dry. Pale. HEAD: Normocephalic. EYES: No scleral icterus. No injection or drainage. NECK: Supple, trachea midline. No JVD or lymphadenopathy. LYMPHATIC: No adenopathy. CARDIOVASCULAR: Regular rate and rhythm without murmurs. RESPIRATORY: Breath sounds equal bilaterally. No accessory muscle use. GASTROINTESTINAL: Abdomen soft, nondistended. Slight soreness around surgical site. EXTREMITIES: No cyanosis, or edema. MUSCULOSKELETAL: Adequate muscle tone. NEUROLOGICAL: No obvious focal deficit. Awake, alert, and oriented x3. PSYCHIATRIC: Appropriate mood and affect; insight and judgment normal. Assessment/Plan - Plan This is a pleasant 62-year-old female with newly diagnosed colon cancer status post right colectomy on 12/16/2017. She is also been noted to have iron deficiency anemia. Pathology shows moderately differentiated invasive adenocarcinoma involving the ileocecal valve. 19 lymph nodes negative. Clear margins. She is noted to have stage pT3, pN0, M0 ultimately stage II disease. Plan: 1. Review pathology with patient again and her questions answered. MSI studies pending. She may need Oncotype DX test if MSI is stable. [facility] She reports that she will need to follow- up with them outpatient to see the oncologist. 2. Instruct her to follow-up with her primary physician to monitor CBC and anemia. She may need more iron supplement once she is able to tolerate p.o. well.
--- NOTE | 2017-12-23 07:47 | P.PNGS ---
Subjective Interval history: Tolerating diet. Does have pain when off medications. Overall doing well. Physical Exam Vital signs: Vital Signs 12/22/17 08:00 12/22/17 12:00 12/22/17 16:00 Temperature 97.5 F L 97.8 F 97.9 F Pulse Rate 86 88 92 H Respiratory Rate 18 18 18 Blood Pressure 154/80 H 143/83 H 169/81 H Pulse Oximetry 94 L 94 L 93 L 12/22/17 20:00 12/23/17 00:00 12/23/17 04:00 Temperature 97.4 F L 97.8 F 97.7 F Pulse Rate 91 H 92 H 81 Respiratory Rate 18 19 18 Blood Pressure 168/77 H 162/77 H 159/69 H Pulse Oximetry 99 97 96 Intake & Output 12/22/17 12/23/17 12/23/17 18:59 06:59 18:59 Intake Total 2440 / 2440 Balance 2440 / 2440 Intake: IV 1720 / 1720 NS Inj 1,000 ML @ 125 mls/hr IV 1500 / 1500 .CONT .Q8H CAT Rx#:[id number] Venofer Inj 200 MG In NS Inj 220 / 220 100 ML @ 110 mls/hr IV.SIG DAILY CAT Rx#:[id number] Oral 720 / 720 Other: # Voids 2 Date of Last Bowel Movement 12/22/17 # Bowel Movements 0 Narrative: No distress, comfortable in chair. Abd: soft, mild distention, inc repacked right lateral aspect. Some induration medially. - Urinary Catheter Management Indwelling Urethral Catheter Cath placed during this visit: yes Reason for continuing: Acute urinary retention Insertion date: 12/16/17 Insertion time: 10:00 Assessment and Plan - Assessment (1) S/P colectomy Code(s): Z90.49 - Acquired absence of other specified parts of digestive tract Status: Acute (2) Small bowel obstruction Code(s): K56.609 - Unspecified intestinal obstruction, unspecified as to partial versus complete obstruction Status: Acute - Plan POD 7 lap assisted right colectomy. Stable post op. Clear for d/c home from my standpoint. Will need [facility] wound care for daily packing changes. Need 5 days levaquin/flagyl. F/u with me one week.
--- NOTE | 2017-12-23 09:05 | P.DS ---
Date of admission: 12/13/17 05:54 Primary care physician: UNKNOWN Brief History from admission: This is a pleasant 62 y/o Female who came to ER with complaint of nausea, vomit and Diarrhea, generalized weakness, lightheaded sensation and dizziness. had C. difficile colitis 2 years ago. has Depression, Tobacco dependence, was indicated for admission by ER physician , observation The patient is been having symptomatology for the last two years she went to her PCP during the last two years with pain on the Right lower quadrant. DS: Diagnosis - Discharge Diagnosis (1) Small bowel obstruction Status: Acute (2) Mass of cecum Status: Acute (3) S/P colectomy Status: Acute DS: Medications - Discharge Medications Prescriptions: ferrous sulfate [Rosina-Time] 325 mg PO DAILY #30 tab hydrocodone-acetaminophen 1 tab PO Q4H PRN #20 tab PRN Reason: Acute Pain levofloxacin 750 mg PO Q24H #5 tab metronidazole 500 mg PO Q6HR #5 tab DS: Summary Hospital Course: 1. Small Bowel Obstruction, had CT of Abdomen and Pelvis, with result of SBO, secondary to probable mass on Ileocecal valve, appendix unremarkable, 1.5 cm indeterminate cortical based lesion involving the left kidney cannot exclude a solid mass, found Cecal mass likely malignancy, on EGD found Hiatal hernia, Erosive gastritis, started on PPIs. Status post Laparoscopic assisted Right Colectomy 12/16/17, by Doctor Geoffrey Nolan today decreased dosages of Morphine as per General Surgery. had bowel movement, but developed two jono removed, thick pink fluid drained and packed with 2x2. Cellulitis on her surgical wound, recommended by General Surgery to start Levaquin/Flagyl. Cleared by gen surg for [place] Patient to vinay Levaquin /flagyl for 5 days at [place] . To f./u with Dr Nolan as OP in 1 week .Patient to see oncology at [place]. Home health will be arranged by [place] 2. Invasive moderately Differentiated Adenocarcinoma of the Colon, as per stars specialist 19 Lymph nodes negative clear margins, has Stage T3N0M0, stage II disease and will follow her physicians at [place] on discharge. 3. Depression continue Home medicines once able to take by mouth. 4. Tobacco dependence strongly recommended stop smoking. 5. Obesity strongly recommended diet and exercise. 6. Electrolyte derangement replaced for Potassium 3.4 and Magnesium 1.9 7. Anemia on chronic disease giving two units of PRBCs and reserved two more for surgery, Hemoglobin 7.2 receiving Iron IV. DVT prophylaxis with Lovenox Encourage ambulation. Patient improved and was DC home with home health to follow-up as outpatient with PCP and consultants - Time Spent with Patient Total time spent providing and/or coordinating discharge services: Greater than 30 minutes - Quality: VTE Deep Vein Thrombosis/Pulmonary Embolism Present on Admission: No Exam Vital signs: Vital Signs 12/22/17 12:00 12/22/17 16:00 12/22/17 20:00 Temperature 97.8 F 97.9 F 97.4 F L Pulse Rate 88 92 H 91 H Respiratory Rate 18 18 18 Blood Pressure 143/83 H 169/81 H 168/77 H Pulse Oximetry 94 L 93 L 99 12/23/17 00:00 12/23/17 04:00 Temperature 97.8 F 97.7 F Pulse Rate 92 H 81 Respiratory Rate 19 18 Blood Pressure 162/77 H 159/69 H Pulse Oximetry 97 96 Intake & Output 12/22/17 12/23/17 12/23/17 18:59 06:59 18:59 Intake Total 2440 / 2440 Balance 2440 / 2440 Intake: IV 1720 / 1720 NS Inj 1,000 ML @ 125 mls/hr IV 1500 / 1500 .CONT .Q8H CAT Rx#:[id number] Venofer Inj 200 MG In NS Inj 220 / 220 100 ML @ 110 mls/hr IV.SIG DAILY CAT Rx#:[id number] Oral 720 / 720 Other: # Voids 2 Date of Last Bowel Movement 12/22/17 # Bowel Movements 0 Narrative: GENERAL: Obese, Well-developed patient, in no apparent distress. CARDIOVASCULAR: Regular rate and rhythm without murmurs, gallops, or rubs. RESPIRATORY: Clear to auscultation. Breath sounds equal bilaterally. No wheezes , rales, or rhonchi. GASTROINTESTINAL: Soft, dressed surgical wound. MUSCULOSKELETAL: Extremities without clubbing, cyanosis, or edema. NEURO: Alert & Oriented x4 to person, place, time, situation. Moves all ext x4 Results Procedures completed during hospitalization: Date: 12/16/17 12:29 - Preoperative Diagnosis (1) Small bowel obstruction (2) Mass of cecum - Postoperative Diagnosis (1) Small bowel obstruction (2) Mass of cecum Date of procedure: 12/16/17 Procedure: Laparoscopic assisted right colectomy Anesthesia: GETA Surgeon: Geoffrey Nolan MD Completed studies during hospitalization: Pending at discharge 12/14/17 08:15 Surgical [PTH] Routine 12/16/17 08:01 Surgical [PTH] Routine - Impressions ITS Impressions Abdomen/Pelvis CT 12/13/17 03:54 CONCLUSION: 1. Small bowel obstruction. Obstruction is felt to be secondary to possible mass at the ileocecal valve. The appendix is unremarkable. 2. 1.5 cm indeterminate cortical based lesion involving the left kidney. I cannot exclude a solid mass. Consideration could be made to ultrasound to further assess. 3. Prior cholecystectomy. Chest X-Ray 12/16/17 00:00 CONCLUSION: Central line placed with mild subcutaneous emphysema and no pneumothorax. Previously seen nodular density in right midlung is not reproduced possibly technical. Pulmonary nodule is not excluded. Discharge Plan - Discharge Disposition Patient Disposition: W/Home Health Service - Discharge Condition Condition: Stable - Discharge Order Discharge Orders: Discharge Order (Routine); Ordered 12/23/17 Ordered By: Malathi Deng General Surgery Clear for Discharge (Routine); Ordered 12/23/17 Ordered By: Geoffrey Nolan - Physicians Team Primary Care Provider: UNKNOWN, Attending Provider: Malathi Deng Other Providers: Geoffrey Nolan MD ; Forrest Quinonez MD ; Corona Bonilla MD
[2017-12-23] MEDS: Enoxaparin Inj 40 MG/0.4 ML Syringe SQ SCH (11:37)
== END 2017-12-23 12:02 | disposition home health service (06) ==
LOC: NEPE 02:49 → NEDA 05:54 → NEDH 10:21 → N07 12:30
PROVIDERS: ADMIT Hospitalist; ATTEND Hospitalist
PROC: PANENDO (2017-12-14 16:08)
PROC: COLONOS (2017-12-14 16:08)